=== PATIENT | female | born 1955 | race Caucasian/White ===

== ENCOUNTER → 2017-12-16 11:08 | Outpatient (CLI) | payer MEDICARE, MEDICAID, SELFPAY ==
[2017-12-16 11:16] LABS: Bacteria 0 SEEN /hpf (None Seen); Mucous, Urine 0 SEEN /hpf (<or=2+); Red Blood Cells-Urine 0 SEEN /hpf (0-5); White Blood Cells 0 SEEN /hpf (0-5)
[2017-12-16 14:24] LABS: Color, Urine Yellow (Yellow); Glucose, Dipstick Normal (Normal); Ketone-Dipstick Negative (Negative); Leukocyte Esterase-Dipstick Negative /ul (Negative); Nitrite-Dipstick Negative (Negative); Occult Blood-Urine 10 /ul (Negative); Protein-Dipstick Negative (Negative); Urine Bilirubin Dipstick Negative (Negative); Urine Clarity Clear (Clear); Urine Urobilinogen Normal (Normal)
[2017-12-16 14:27] LABS: Absolute Lymphocyte Count 1.87 X10^3/ul (0.83-4.51); Absolute Neutrophil Count 5.2 X10^3/uL (2.0-7.7); Basophil# 0.05 X10^3/uL; Basophil% 0.6 % (0-1); Eosinophil# 0.36 X10^3/uL; Eosinophils% 4.4 % (0-5); Hematocrit 39.2 % (37-47); Hemoglobin 11.7 g/dl (12.0-15.0); Lymphocyte # 1.87 X10^3/ul (4.0); Mean Corp Hgb Conc 29.8 g/gl (32-36); Mean Corpuscular Hgb 27.3 pg (27.0-32.0); Mean Corpuscular Volume 91.6 fL (81-99); Mean Platelet Vol. 10.6 fl (6.2-12.0); Monocyte# 0.67 X10^3/uL; Monocyte% 8.2 % (0-10); Neutrophil # 5.16 X10^3/uL (2.7-7.7); Neutrophil % 63.6 % (47-70); POSITIVE COUNT NO; POSITIVE DIFFERENTIAL NO; POSITIVE MORPHOLOGY NO; Platelet Count 284 K/mm3 (150-450); RBC Distribution Width CV 15.4 % (11.6-14.6); RBC Distribution Width SD 50.6 fl (35.1-43.9); Red Blood Count 4.28 M/mm3 (4.2-5.4); White Blood Count 8.1 K/mm3 (4.4-11.0)
[2017-12-16 14:34] LABS: Squamous Epithelial Cells - UA 0-5 SEEN /hpf (5-10)
[2017-12-16 15:14] LABS: ALB/GLOB Ratio 0.6 RATIO (0.9-2.4); AST(SGOT) 18 U/L (15-37); Alanine Aminotransfer ALT/SGPT 22 U/L (13-56); Albumin, Serum 3.1 g/dL (3.2-5.0); Alkaline Phosphatase 125 U/L (45-117); Anion Gap 9 (5-15); BUN 16 mg/dL (7-18); BUN/Creat Ratio 14.3 RATIO (10-20); Calcium,Total 8.5 mg/dL (8.5-10.1); Chloride 104 mmol/L (98-107); Cholesterol 185 mg/dL (200); Creatinine, Serum 1.12 mg/dL (0.55-1.02); EST Glomerular Filtration Rate 52 mL/min (>60); Est Glom Filt Rate - Afr Amer 63 mL/min (>60); Globulin 5.4 g/dL (2.2-4.2); Glucose 79 mg/dL (74-106); High Density Lipoprotein 50 mg/dL; Potassium 4.4 mmol/L (3.5-5.1); Protein, Total 8.5 g/dL (6.4-8.2); Sodium Level 140 mmol/L (136-145); T4 Free Direct 1.14 ng/dL (0.76-1.46); Thyroid Stim Hormone (TSH) 2.11 uIU/mL (0.358-3.74); Triglycerides 160 mg/dL; Very Low Density Lipoprotein 32 mg/dL (5-40)
[2017-12-17 09:38] LABS: Vitamin B12 481 pg/mL (211-911)
== END ==
PROVIDERS: Family Provider Family Medicine; PCP Family Medicine; Visit Provider Family Medicine
DX: I10 Essential (primary) hypertension (principal); E53.8 Deficiency of other specified B group vitamins; E66.01 Morbid (severe) obesity due to excess calories; E04.1 Nontoxic single thyroid nodule
CPT/HCPCS: 36415; 80053; 80061; 81001; 82607; 82746; 83036; 84439; 84443; 85025

== ENCOUNTER → 2017-12-21 12:58 | Outpatient (CLI) | payer MEDICARE, MEDICAID, SELFPAY ==
--- NOTE | 2017-12-21 13:03 | US_ITS ---
STUDY: THYROID ULTRASOUND REASON FOR EXAM: Female, 62 years old. Nodule TECHNIQUE: Transverse and longitudinal ultrasound evaluation of the thyroid was performed with real-time and static kilgore-scale imaging. COMPARISON: None. FINDINGS: RIGHT LOBE: The right lobe of the thyroid gland measures 3.8 x 1.6 x 1.8 cm. There is a heterogeneous echotexture. There is an isoechoic mass in the lower pole measuring 11.9 x 7.2 x 10.3 mm. This is well marginated. LEFT LOBE: The left lobe of the thyroid gland measures 4.9 x 1.6 x 1.4 cm. There is a heterogeneous echotexture. There are no demonstrated solid, cystic or complex lesions. ISTHMUS: The isthmus measures 3.0 mm. The regional lymph nodes are unremarkable. US/Thyroid IMPRESSION: There is an isoechoic nodule in the lower pole of the right lobe of the thyroid measuring 12 mm in size. The appearance is not suspicious. A follow-up ultrasound can be obtained in six months. Percutaneous sampling can be performed if the patient is anxious. Electronically Signed: Vianca Sprague MD at 18:15 EDT Tel Direct: [phone], Service support ,
== END ==
PROVIDERS: Family Provider Family Medicine; PCP Family Medicine; Visit Provider Family Medicine
DX: E04.1 Nontoxic single thyroid nodule (principal)
CPT/HCPCS: 76536

== ENCOUNTER → 2017-12-29 07:55 | Outpatient (CLI) | payer MEDICARE, MEDICAID, SELFPAY ==
--- NOTE | 2017-12-29 10:50 | PFTCOMP ---
COMPLETE PULMONARY FUNCTION TEST INTERPRETATION Brief HPI: Patient is a 62 year old female, currently under the care of Dr. Meyer, who presents to [facility] for complete pulmonary function tests secondary to diagnosis of asthma. Respiratory therapist reports good effort and reproducible results. Interpretation: Forced expiration spirometry shows no large airways obstructive ventilatory defect with an FEV1 of 72 % predicted. There is no significant bronchodilator response by ATS criteria. Spirograms are of good quality and plateau normally. The respiratory flow volume loop shows a normal pattern. Lung volumes by body plethysmography show a normal total lung capacity at 5.16 L, 100 % predicted. All other lung volumes are within normal limits. Diffusion capacity by carbon monoxide is decreased at 55 % predicted. The airway resistance is normal. No previous pulmonary function tests were available for review. Impression: Isolated defect in diffusion capacity consistent with a possible pulmonary vascular disorder. Consider echocardiogram if not completed previously.
== END ==
PROVIDERS: Family Provider Family Medicine; PCP Family Medicine; Visit Provider Family Medicine
DX: J45.909 Unspecified asthma, uncomplicated (principal)
CPT/HCPCS: 94060; 94726; 94729

== ENCOUNTER → 2017-12-31 12:07 | Outpatient (CLI) | payer MEDICARE, MEDICAID, SELFPAY ==
[2017-12-31 16:01] LABS: Anion Gap 5 (5-15); BUN 18 mg/dL (7-18); BUN/Creat Ratio 17.8 RATIO (10-20); Calcium,Total 8.5 mg/dL (8.5-10.1); Chloride 103 mmol/L (98-107); Creatinine, Serum 1.01 mg/dL (0.55-1.02); EST Glomerular Filtration Rate 59 mL/min (>60); Est Glom Filt Rate - Afr Amer 71 mL/min (>60); Glucose 84 mg/dL (74-106); Potassium 4.2 mmol/L (3.5-5.1); Sodium Level 139 mmol/L (136-145)
== END ==
PROVIDERS: Family Provider Family Medicine; PCP Family Medicine; Visit Provider Family Medicine
DX: I10 Essential (primary) hypertension (principal)
CPT/HCPCS: 36415; 80048

== ENCOUNTER → 2018-01-08 09:20 | Outpatient (CLI) | payer MEDICARE, MEDICAID, SELFPAY ==
--- NOTE | 2018-01-08 09:20 | ASPS_PTH ---
PATIENT: ALEXIS HASKINS LOC: [facility] U#:[id number] AGE/SX: 69/F ROOM: RE01/08/[address]: Dr. Ankush Fletcher MD : 1955 BED: DIS: SPEC #: [id number] RECD: 01/10/18 07:14 STATUS: KATALINA KIAH #: [id number] ARMANI: 01/08/18 09:[address]: Ankush Fletcher DEPT: CYTOLOGY RECD BY: Kamaljit Summers ENTERED: 01/10/18 09:47 SP TYPE: ASPIRATION OTHR DR: Dr. Hieu Meyer MD Tissues: Thyroid gland, NOS Procedures: Pap Stain (control) Special Stain Group II Cytology Other HEADER OPERATION: Right thyroid FNA PRE-OP DIAGNOSIS: Right thyroid nodule TISSUE SUBMITTED: Right thyroid slides (8) DIAGNOSIS CYTOLOGY Right thyroid nodule, FNA (smears): Consistent with benign follicular nodule. See cytology study and comment. SJ:cecile 01/11/18 COMMENT Correlation with clinical, radiologic findings and appropriate follow up are necessary. CYTOLOGY STUDY Slides are reviewed. The specimen is adequate for evaluation. The specimen consists of benign follicular cells. Significant amount of colloid is not seen. CYTOLOGY GROSS Received are eight smears labeled with the patient's name and designated per the requisition as right thyroid. Submitted for staining. / 01/10/18 TC:5 CPT: 00397
== END ==
PROVIDERS: Family Provider Family Medicine; PCP Family Medicine; Visit Provider Surgery
DX: E04.1 Nontoxic single thyroid nodule (principal)
CPT/HCPCS: 88161; 88313

== ENCOUNTER 2018-01-17 17:00 | Outpatient (RCR) | payer MEDICARE, MEDICAID, SELFPAY ==
--- NOTE | 2017-12-30 11:56 | HP.OTEVAL_ITS ---
Patient's Visit Information ALEXIS HASKINS is a 62 year old F, referred to Occupational Therapy by Hieu Meyer MD,, with a diagnosis of LE lymphedema. Date of Evaluation: 12/30/17 Occupational Therapist: Meghann Hobbs, ROBERTOR/Vitor, CHT - Subjective Subjective: Pt states she was dx 4-5 years ago with lymphedema- pt states her old years ago did have her on bumex and pt states this medication did help control her swelling. Pt states with her new drElizabet she has not been placed back on medication at this time- pt reports the requested her to see someone for lymphedema. Pt states she has not used compression socks in the past because her insurance would not cover the socks. pt states she has tried wraps on her legs but the wraps slide down and she can not wrap her legs, states she relied on her family. Pt states the swelling in her legs does go down at night and in the morning her legs look normal pt states she has had cellulitis x3 hospitalized x2 - Lymphedema (Circumferential Measure) Ankle: R/L 37cm/37cm Lower calf: R/L 60cm/63cm Largest calf: R/L 67cm/68cm Below knee: R/L 70/70cm - Lower Limb Functional Index Lower Extremity Functional Score: 48 - Goals Demonstrate a 20% reduction in edema by d/c: Yes Demonstrate adequate knowledge of self-massage by 2nd week: Yes Demonstrate adequate knowledge skin care/prec by 2nd week: Yes Demonstrate adequate knowledge therapeutic exercises by d/c: Yes Select approp compression garment w/donning/care/wear by d/c: Yes Voice need to replace compression garment every 4-6mo by dc: Yes - Rehabilitation General Assessment: pt demo with dry itchy skin- feels soft no fibrotic tissue noted at this time- pt demo need for ed on the need for compression garments- pt ed. on use of 20-30mmHg, and sizing of compression garments. pt ed. on skin care. pt ed on lymph system and life mtg of this dx. pts is to call insurance to see if they will cover the compression garments- if they will pt will get them- if not pt will have to wait until she can afford the compression garments. pt is to call therapist left me know what she has decided if insurance does not cover the garments. Rehabilitation Potential: Good - Anticipated Interventions Anticipated Interventions: Education re Diagnosis, Education re Life-long lymphedema Management, Education re Skin Care and Precautions, Education re Self Massage Techniques, Education re Correct Donning Tech,Care&Wearing Sched Comp Garments, Home Program - Visit Plan Frequency: Every Other Week Duration: 2 Weeks General Plan: pt will call insurance to see if they will pay for compression socks- if so pt will get a pair to use during the day to assist in mtg of her BLE lymphedema. if insurance does not cover the garments she will have to wait until she has extra funds to pay for them. pt to call therapist for update. Therapist will advise pt to schedule when she has the compression hose or alternative compression device as circaide TEXT: Thank you for the opportunity to evaluate your patient. For Medicare and Medicare HMO plans, please review the plan of care and approve it. It will need to be FAXED BACK to us at [phone] for Medicare purposes. Please let me know if there are questions or concerns regarding this plan of care. Physician Signature: Date:
--- NOTE | 2018-01-27 14:56 | HP.OTDCNRP_ITS ---
HP - Discharge Summary - Patient Information ALEXIS HASKINS was seen in my office for initial evaluation on 12/30/17. The following Plan of Care was established for this patient: Initial Frequency: Every Other Week Initial Duration: 2 Weeks Plan: pt to get compression hose tues- will call if she has trouble with donning /doffing compression socks - Anticipated Interventions Anticipated Interventions: Education re Diagnosis, Education re Life-long lymphedema Management, Education re Skin Care and Precautions, Education re Self Massage Techniques, Education re Correct Donning Tech,Care&Wearing Sched Comp Garments, Home Program This patient was last seen in our office 01/17/18. Pertinent comments regarding their Occupational therapy will appear below: Pt was seen for 2 visits- she recived her compression hose and phoned today reporting she was doing fine and no longer needed services. Pt. D/c at this time At this point I will be discontinuing this patient from occupational therapy. I would be happy to see this patient again in the future if found appropriate by the physician. Thank you! Meghann Hobbs, OTR/L, CHT
== END 2018-01-17 19:00 | disposition home or self-care (01) ==
LOC: OT 17:00
PROVIDERS: Family Provider Family Medicine; PCP Family Medicine; Visit Provider Family Medicine
DX: I89.0 Lymphedema, not elsewhere classified (principal)
CPT/HCPCS: 97110; 97166; 97530

== ENCOUNTER → 2018-01-18 08:07 | Outpatient (CLI) | payer MEDICARE, MEDICAID, SELFPAY ==
--- NOTE | 2018-01-18 08:10 | RDU_ITS ---
Reason For Study: Kidney disease Right Renal Artery Left Renal Artery Right renal artery ostium Left renal artery ostium 133.0/26.4 118.0/23.7 RSV/EDV. PSV/EDV. Right renal artery proximal Left renal artery proximal PSV/EDV 137.0/27.4 PSV/EDV. 133.0/23.7 . Right renal artery mid 140.0/30.1 Left renal artery mid 136.0/34.7 PSV/EDV. PSV/EDV . Right renal artery distal Left renal artery distal 153.0/32.8 143.0/29.2 PSV/EDV. PSV/EDV. Right Renal Parenchyma Left Renal Parenchyma Upper Pole Medula 33.9/8.9 PSV/EDV. Left upper pole medulla 19.9/5.5 Right upper pole medulla EDR .26 . PSV/EDV . Right upper pole medulla R.I. .74 . Left upper pole medulla EDR .28 . Upper Chavo Cortx 22.0/5.2 PSV/EDV. Left upper pole medulla R.I. .72 . Right upper pole cortex EDR .24 . UP Cortex 20.8/6.4 PSV/EDV. Right upper pole cortex R.I. .76 . Left upper pole cortex EDR .31 . Right lower Pole medulla 25.1/5.5 Left upper pole cortex R.I. .69 . PSV/EDV . Left lower Pole medulla 31.2/8.3 Right lower pole medulla EDR .22 . PSV/EDV . Right lower pole medulla R.I. .78 . Left lower pole medulla EDR .27 . Lower Pole Cortex 17.1/6.1 PSV/EDV. Left lower pole medulla R.I. .74 . Right lower pole cortex EDR .36 . Lower Pole Cortx 23.5/7.6 PSV/EDV. Right lower pole cortex R.I. .64 . Left lower pole cortex EDR .32 . Right Renal Hilar Left lower pole cortex R.I. .68 . Right Hilar avg 49.2/12.8 PSV/EDV. Left Renal Hilar Right hilar acceleration time 59 LT Hilar avg 79.4/18.3 PSV/EDV . m/sec. Left hilar acceleration time 51 Right Renal Dimensions m/sec. Right kidney size 9.3 cm . Left Renal Dimensions Right cortical dimension 1.4 cm . Left kidney size 9.6 cm . Left cortical dimension 1.3 cm . Aorta Proximal abdominal aorta 2.1 x 2.0 cm . Distal abdominal aorta 1.6 x 1.7 cm . Proximal abdominal aorta peak systolic velocity is 109.0 cm/sec . Distal abdominal aorta peak systolic velocity is 129.0 cm/sec . Interpretation Summary Dimensions of the intra-abdominal aorta appear normal, without evidence of aneurysmal dilatation. Renal artery velocities are bilaterally normal. Acceleration times are normal bilaterally. There is no evidence of hemodynamically significant renal artery stenosis on either side. Cortical dimensions are bilaterally normal. Kidneys appear normal in size bilaterally. Ordering Physician: Hieu Meyer Referring Physician: Hieu Meyer Performed By: Monica Hernandez RVT
--- NOTE | 2018-01-18 09:09 | US_ITS ---
STUDY: RENAL ULTRASOUND - COMPLETE REASON FOR EXAM: Female, 62 years old. Kidney disease. TECHNIQUE: Ultrasound evaluation of the kidneys was performed with real-time and static lazar-scale imaging. COMPARISON: None. FINDINGS: RIGHT KIDNEY: with mild renal atrophy. The right kidney measures 9.1 x 3.7 x 4.8 cm. There is a normal cortex of the right kidney. The renal cortex measures 1.6 cm. There is no right renal mass or cyst. There are no right renal calculi. There is no right hydronephrosis. DISTAL RIGHT URETER: There is non-visualization of the distal right ureter. There is no demonstrated right ureterovesical junction calculus. There is no demonstrated right ureteral jet. LEFT KIDNEY: Normal location of the left kidney, which is normal in size. The left kidney measures 10.6 x 4.5 x 5.2 cm. There is a normal cortex of the left kidney. The renal cortex measures 1.7 cm. There is no left renal mass or cyst. There are no left renal calculi. There is no left hydronephrosis. DISTAL LEFT URETER: There is non-visualization of the distal left ureter. There is no demonstrated left ureterovesical junction calculus. There is no demonstrated left ureteral jet. AORTA: Not evaluated. Not visualized. I.V.C.: Not visualized. BLADDER: Not visualized. US/Kidney and Bladder IMPRESSION: Renal size asymmetry as above. Most likely secondary to mild right renal atrophy. No mass or cyst. No hydronephrosis. No calculi identified. Electronically Signed: Fredi Hutson MD at 11:00 EDT , Service support ,
== END ==
PROVIDERS: Family Provider Family Medicine; PCP Family Medicine; Visit Provider Family Medicine
DX: I10 Essential (primary) hypertension (principal); N28.9 Disorder of kidney and ureter, unspecified
CPT/HCPCS: 76770; 93975

== ENCOUNTER → 2018-02-03 10:04 | Outpatient (CLI) | payer MEDICARE, MEDICAID, SELFPAY ==
[2018-02-03 12:50] LABS: Anion Gap 10 (5-15); BUN 19 mg/dL (7-18); Calcium,Total 8.8 mg/dL (8.5-10.1); Chloride 105 mmol/L (98-107); Creatinine, Serum 1.19 mg/dL (0.55-1.02); EST Glomerular Filtration Rate 49 mL/min (>60); Est Glom Filt Rate - Afr Amer 59 mL/min (>60); Glucose 90 mg/dL (74-106); Potassium 4.1 mmol/L (3.5-5.1); Sodium Level 143 mmol/L (136-145)
== END ==
PROVIDERS: Family Provider Family Medicine; PCP Family Medicine; Visit Provider Family Medicine
DX: N28.9 Disorder of kidney and ureter, unspecified (principal)
CPT/HCPCS: 36415; 80048

== ENCOUNTER → 2018-04-15 11:59 | Outpatient (CLI) | payer MEDICARE, MEDICAID, SELFPAY ==
[2018-04-15 12:07] LABS: Red Blood Cells-Urine 0 SEEN /hpf (0-5)
[2018-04-15 14:09] LABS: Absolute Neutrophil Count 4.5 X10^3/uL (2.0-7.7); Basophil# 0.04 X10^3/uL; Basophil% 0.6 % (0-1); Eosinophil# 0.28 X10^3/uL; Eosinophils% 3.9 % (0-5); Hematocrit 39.2 % (37-47); Hemoglobin 11.7 g/dl (12.0-15.0); Lymphocyte % 25.2 % (19-41); Mean Corp Hgb Conc 29.8 g/gl (32-36); Mean Corpuscular Hgb 27.1 pg (27.0-32.0); Mean Corpuscular Volume 90.7 fL (81-99); Mean Platelet Vol. 10.4 fl (6.2-12.0); Monocyte# 0.48 X10^3/uL; Monocyte% 6.7 % (0-10); Neutrophil # 4.52 X10^3/uL (2.7-7.7); Neutrophil % 63.5 % (47-70); Platelet Count 239 K/mm3 (150-450); RBC Distribution Width CV 14.7 % (11.6-14.6); Red Blood Count 4.32 M/mm3 (4.2-5.4); White Blood Count 7.1 K/mm3 (4.4-11.0)
[2018-04-15 14:10] LABS: POSITIVE COUNT NO; POSITIVE DIFFERENTIAL NO; POSITIVE MORPHOLOGY NO
[2018-04-15 14:14] LABS: Color, Urine Yellow (Yellow); Glucose, Dipstick Normal (Normal); Ketone-Dipstick Negative (Negative); Leukocyte Esterase-Dipstick 25 /ul (Negative); Nitrite-Dipstick Negative (Negative); Occult Blood-Urine Negative /ul (Negative); Protein-Dipstick Negative (Negative); Urine Bilirubin Dipstick Negative (Negative); Urine Clarity Sl. Cloudy (Clear); Urine Urobilinogen 1 mg/dl (Normal)
[2018-04-15 14:22] LABS: ALB/GLOB Ratio 0.7 RATIO (0.9-2.4); AST(SGOT) 16 U/L (15-37); Alanine Aminotransfer ALT/SGPT 16 U/L (13-56); Albumin, Serum 3.2 g/dL (3.2-5.0); Alkaline Phosphatase 102 U/L (45-117); Anion Gap 5 (5-15); BUN 13 mg/dL (7-18); BUN/Creat Ratio 12.3 RATIO (10-20); Calcium,Total 8.6 mg/dL (8.5-10.1); Chloride 105 mmol/L (98-107); Creatinine, Serum 1.06 mg/dL (0.55-1.02); EST Glomerular Filtration Rate 55 mL/min (>60); Est Glom Filt Rate - Afr Amer 67 mL/min (>60); Globulin 4.8 g/dL (2.2-4.2); Glucose 81 mg/dL (74-106); Potassium 4.1 mmol/L (3.5-5.1); Sodium Level 139 mmol/L (136-145)
[2018-04-15 14:33] LABS: Bacteria 1+ /hpf (None Seen); Squamous Epithelial Cells - UA 5-10 SEEN /hpf (5-10); White Blood Cells 0-5 SEEN /hpf (0-5)
[2018-04-15 14:34] LABS: Mucous, Urine RARE /hpf (<or=2+)
== END ==
PROVIDERS: Family Provider Family Medicine; PCP Family Medicine; Visit Provider Family Medicine
DX: I10 Essential (primary) hypertension (principal); E66.01 Morbid (severe) obesity due to excess calories
CPT/HCPCS: 36415; 80053; 81001; 85025

== ENCOUNTER 2018-04-16 18:16 | Emergency (ER) | payer MEDICARE, MEDICAID, SELFPAY ==
[2018-04-16 18:16] VITALS: BP 148/80; PULSE 65; RESP 16; TEMP 36.4; O2SAT 95; BMI 57.7
--- NOTE | 2018-04-16 18:32 | EKG12_ITS ---
Test Reason : PALPITATIONS Blood Pressure : / mmHG Vent. Rate : 065 BPM Atrial Rate : 065 BPM P-R Int : 154 ms QRS Dur : 096 ms QT Int : 444 ms P-R-T Axes : 005 009 032 degrees QTc Int : 461 ms Normal sinus rhythm Normal ECG Confirmed by LUCA BAUMAN, ASHVIN ([id number]), dictionary editor KALYANI MORROW ([id number]) on 04/19/2018 1:00:18 PM Referred By: Jimi Red Confirmed By:ASHVIN SEGOVIA MD
--- NOTE | 2018-04-16 18:32 | ED.VISSUMM ---
- ER Visit Summary Date of Service: 04/16/18 Chief Complaint: Palpitations, weakness, nausea History of Present Illness: The patient is a 62 F who presents with the above symptoms. Started today. She started Cymbalta today. She has never taken it before. She took it about 1:30 PM. She started having palpitations, weakness and nausea. She just does not feel right. She has taken Zoloft in the past but it made her tired so she was switched to Celexa which was hard with her kidneys so she was switched to BuSpar but she states that did not work. Her doctor then tried the Cymbalta see if it would help with her symptoms. She just feels very tired. Physical Examination: Vital signs reviewed. HEENT exam unremarkable. Heart is regular rate and rhythm without murmurs. Lungs are clear to auscultation. Abdomen is soft and nontender. Extremities reveal no edema. Skin exam normal. Neurologic exam normal. Test Results: EKG is sinus rhythm with no ST changes. Blood glucose is 118 Emergency Department Course and Treatment: The patient is likely having a reaction to medication. I do not feel any further testing is necessary. She will stop using the Cymbalta and will call her doctor on Wednesday for follow-up appointment Treatment Plan: [] Disposition: Discharge Impression: Medication reaction This note was generated with [employer] dictation software. It may contain incorrect words, spelling, and punctuation that were not noted in review of the chart prior to signing ED Disposition - Plan for ED Patient: Disposition: Home or Assisted Living Chief Complaint: General Illness Instructions: ED Drug React Adverse Other Referrals: Hieu Meyer MD [Primary Care Provider] -
[2018-04-16 18:35] VITALS: BP 136/75; PULSE 66; RESP 16; O2SAT 98
[2018-04-16 18:40] LABS: Bedside Glucose 118 mg/dL (70-110)
== END 2018-04-16 18:42 | disposition home or self-care (01) ==
PROVIDERS: Emergency Provider Emergency Medicine; Family Provider Family Medicine; PCP Family Medicine
DX: R00.2 Palpitations (principal); R11.0 Nausea; R53.1 Weakness; T43.215A Adverse effect of selective serotonin and norepinephrine reuptake inhibitors, initial encounter; E66.9 Obesity, unspecified; Y92.009 Unspecified place in unspecified non-institutional (private) residence as the place of occurrence of the external cause
CPT/HCPCS: 82962; 93005; 99282

== ENCOUNTER → 2018-04-26 06:54 | Outpatient (CLI) | payer MEDICARE, MEDICAID, SELFPAY ==
--- NOTE | 2018-04-27 13:18 | BRONCHALL ---
Bronchoprovocation Challenge - Bronchoprovocation Challenge Bronchoprovocation Challenge: INTRODUCTION: The patient is a 62-year-old female that presents for a methacholine challenge secondary to a diagnosis of asthma. The respiratory therapist reported good patient effort and reproducible results. INTERPRETATION: Initial spirometry did not show any large airways obstructive ventilatory defect and preserved airflow throughout. The patient was then given progressively increasing doses of methacholine in a standardized fashion. At dose level 4, the patient did have a 20% drop in FEV1, indicating a positive test. The patient's PD 20 FEV1 is a dose of 0.179. Postchallenge bronchodilator recovery was noted. IMPRESSION: Positive methacholine challenge, indicating the presence of mild bronchial hyperresponsiveness.
== END ==
PROVIDERS: Family Provider Family Medicine; PCP Family Medicine; Visit Provider Family Medicine
DX: J45.909 Unspecified asthma, uncomplicated (principal)
CPT/HCPCS: 94060; 94070; 95070; J3490; J7674

== ENCOUNTER → 2018-07-28 09:49 | Outpatient (CLI) | payer MEDICARE, MEDICAID, SELFPAY ==
--- NOTE | 2018-07-28 09:53 | RAD_ITS ---
STUDY: X-RAY - RIGHT KNEE REASON FOR EXAM: Female, 62 years old. Knee pain. TECHNIQUE: 2 view(s) of the knee. COMPARISON: None. FINDINGS: Extremely limited examination for the patient's size. No acute fracture or dislocation is seen. Mild degenerative narrowing of the medial tibiofemoral compartment. Mild patellofemoral osteoarthritis. No definite effusion. RAD/Knee 3 Views IMPRESSION: Extremely limited because of patient's size. However, no definite acute abnormality. Mild degenerative changes. Electronically Signed: Dontae Napier MD at 10:54 EDT , Service support ,
--- NOTE | 2018-07-28 09:53 | RAD_ITS ---
STUDY: X-RAY - LEFT KNEE REASON FOR EXAM: Female, 62 years old. Knee pain. TECHNIQUE: 2 view(s) of the knee. COMPARISON: None. FINDINGS: Extremely limited examination for the patient's size. No acute fracture or dislocation is seen. Moderate to severe degenerative narrowing of the medial tibiofemoral compartment. Moderate patellofemoral osteoarthritis. No definite effusion. RAD/Knee 3 Views IMPRESSION: Extremely limited because of patient's size. However, no definite acute abnormality. Moderate to severe degenerative changes. Electronically Signed: Dontae Napier MD at 10:55 EDT , Service support ,
== END ==
PROVIDERS: Family Provider Family Medicine; PCP Family Medicine; Referring Provider Family Medicine; Visit Provider Family Medicine
DX: M25.561 Pain in right knee (principal); M25.562 Pain in left knee
CPT/HCPCS: 73562

== ENCOUNTER → 2018-08-24 15:05 | Outpatient (CLI) | payer MEDICARE, MEDICAID, SELFPAY ==
[2018-08-24 14:21] VITALS: BMI 58.8
[2018-08-24 15:33] LABS: Absolute Lymphocyte Count 2.05 X10^3/ul (0.83-4.51); Absolute Neutrophil Count 7.7 X10^3/uL (2.0-7.7); Basophil# 0.04 X10^3/uL; Basophil% 0.4 % (0-1); Eosinophil# 0.19 X10^3/uL; Eosinophils% 1.8 % (0-5); Hematocrit 40.5 % (37-47); Hemoglobin 12.3 g/dl (12.0-15.0); Lymphocyte # 2.05 X10^3/ul (4.0); Lymphocyte % 19.1 % (19-41); Mean Corp Hgb Conc 30.4 g/gl (32-36); Mean Corpuscular Volume 92.3 fL (81-99); Mean Platelet Vol. 10.1 fl (6.2-12.0); Monocyte# 0.76 X10^3/uL; Monocyte% 7.1 % (0-10); Neutrophil # 7.67 X10^3/uL (2.7-7.7); Neutrophil % 71.4 % (47-70); Platelet Count 253 K/mm3 (150-450); RBC Distribution Width CV 14.8 % (11.6-14.6); RBC Distribution Width SD 49.8 fl (35.1-43.9); Red Blood Count 4.39 M/mm3 (4.2-5.4); White Blood Count 10.7 K/mm3 (4.4-11.0)
[2018-08-24 15:49] LABS: POSITIVE COUNT NO; POSITIVE DIFFERENTIAL NO; POSITIVE MORPHOLOGY NO
[2018-08-24 16:01] LABS: Thyroid Stim Hormone (TSH) 1.61 uIU/mL (0.358-3.74)
--- OUTSIDE RECORDS SUMMARY | 2018-10-20 01:33 | XMS RPT_ITS ---
:1955 Author Organization OHIP Support Name Relationship Address Phone SUZIEGRISELDA PENNINGTON Unavailable Unavailable + D Unavailable Unavailable Unavailable PRAKASH HASKINS Unavailable Unavailable + SUZIEGRISELDA PENNINGTON Unavailable Unavailable + D Unavailable Unavailable Unavailable YURICK, SUZZIE Unavailable Unavailable + BERSCH, GRISELDA Unavailable [address] + [place] [address] D Unavailable Unavailable Unavailable YURICK, SUZZIE Unavailable . + [place] [address] BERSCH, GRISELDA Unavailable [address] + [place] [address] D Unavailable Unavailable Unavailable YURICK, SUZZIE Unavailable Unavailable + [place] [address] BERSCH, GRISELDA Unavailable [address] + [place] [address] D Unavailable Unavailable Unavailable YURICK, SUZZIE Unavailable Unavailable + [place] [address] BERSCH, GRISELDA Unavailable [address] + [place] [address] D Unavailable Unavailable Unavailable YURICK, SUZZIE Unavailable Unavailable + [place] [address] BERSCH, GRISELDA Unavailable [address] + [place] [address] D Unavailable Unavailable Unavailable BERSCH, GRISELDA Unavailable [address] + [place] [address] D Unavailable Unavailable Unavailable BERSCH, GRISELDA Unavailable [address] + [place] [address] D Unavailable Unavailable Unavailable BERSCH, GRISELDA Unavailable [address] + [place] [address] D Unavailable Unavailable Unavailable BERSCH, GRISELDA [place] [address] D Unavailable Unavailable Unavailable BERSCH, GRISELDA Unavailable [address] + [place] [address] D Unavailable Unavailable Unavailable BERSCH, GRISELDA [place] [address] D Unavailable Unavailable Unavailable BERSCH, GRISELDA Unavailable [address] + [place] [address] D Unavailable Unavailable Unavailable BERSCH, GRISELDA Unavailable [address] + [place] [address] D Unavailable Unavailable Unavailable BERSCH, GRISELDA Unavailable [phone] [place] [address] D Unavailable Unavailable Unavailable BERSCH, GRISELDA [place] [address] D Unavailable Unavailable Unavailable BERSCH, GRISELDA [place] [address] D Unavailable Unavailable Unavailable BERSCH, GRISELDA Unavailable [phone] [place] [address] D Unavailable Unavailable Unavailable DAPHNE DERAS Unavailable Unavailable + [place] [address] Care Team Providers Name Role Phone Hieu Meyer Attending Unavailable Hieu Meyer Primary Care Unavailable Hieu Meyer Attending Unavailable Hieu Meyer Referring Unavailable Hieu Meyer Primary Care Unavailable Hieu Meyer Attending Unavailable Hieu Meyer Referring Unavailable Hieu Meyer Primary Care Unavailable Hieu Meyer Attending Unavailable Hieu Meyer Referring Unavailable Hieu Meyer Primary Care Unavailable Ankush Fletcher Attending Unavailable Hieu Meyer Referring Unavailable SchHieu rinaldi Primary Care Unavailable Hieu Meyer Attending Unavailable Hieu Meyer Primary Care Unavailable Ankush Fletcher Attending Unavailable Hieu Meyer Referring Unavailable Hieu Meyer Primary Care Unavailable Ankush Fletcher Attending Unavailable Ankush Fletcher Referring Unavailable SchHieu rinaldi Primary Care Unavailable Angel Gonzales Attending Unavailable Hieu Meyer Referring Unavailable Hieu Meyer Attending Unavailable Hieu Meyer Referring Unavailable SchHieu rinaldi Primary Care Unavailable Schinner, Hieu E Attending Unavailable Schinner, Hieu E Primary Care Unavailable Schinner, Hieu E Attending Unavailable Schinner, Hieu E Primary Care Unavailable Schinner, Hieu E Primary Care Unavailable FaizaneJimi Attending Unavailable Lowe, Jimi Referring Unavailable Schinner, Hieu E Attending Unavailable Schinner, Hieu E Primary Care Unavailable Schinner, Hieu E Referring Unavailable Lukasz Flores D.O. Attending Unavailable Schinner, Hieu Schaefer Referring Unavailable Schinner, Hieu E Attending Unavailable Schinner, Hieu E Referring Unavailable Schinner, Hieu E Primary Care Unavailable Greenfield, Demi Attending Unavailable Schinner, Hieu E Referring Unavailable Greenfield, Demi Attending Unavailable Greenfield, Demi Referring Unavailable Schinner, Hieu E Primary Care Unavailable Erendira, Demi Attending Unavailable Greenfield, Demi Referring Unavailable Schinner, Hieu E Primary Care Unavailable PROBLEMS PROBLEMS DATE TYPE CONDITION / CODE ATTENDING STATUS SOURCE 08/24/2018 Unknown E04.2 - Nontoxic ErendiraDemi roth Active [facility] multinodular goiter Community / E04.2(ICD-10) Hospital Repository 08/24/2018 Unknown N95.0 - GreenfieldDemi roth Active [place] Postmenopausal [facility] bleeding / Hospital N95.0(ICD-10) Repository 07/28/2018 Unknown M25.561 - Pain in Hieu Meyer Active [place] right knee / E Community M25.561(ICD-10) Hospital Repository 07/28/2018 Unknown M25.562 - Pain in Hieu Meyer Active [place] left knee / E [facility] M25.562(ICD-10) Hospital Repository 05/05/2018 Unknown J45.909 - Rosie Haas [facility] Unspecified asthma, D.O. 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, E Community unspecified / Hospital N28.9(ICD-10) Repository 05/07/2018 Unknown I10 - Essential Hieu Meyer Active [facility] (primary) E [facility] hypertension / Hospital I10(ICD-10) Repository PROCEDURES PROCEDURES No Procedure Records FoundRESULTS RESULTS TRANSVAGINAL Observed: 09/02/2018 Status: F Source: [place] NON- [facility] PM [facility] [place] [facility] Imaging Services [address] [place] [address] Transvaginal Non- MR#: [id number] Acct: [id number] Name: ALEXIS HASKINS Rep #: [id number] : 1955 F 62 From: Anatoliy Tavera MD PCP: Hieu Meyer MD Status: REG CLI Study: Transvaginal Non- Date of Exam: 09/02/18 Exam# [id number] Ordering Dr: Demi Krishna FORENSIC SCIENCE EXAMINER-Shell STUDY: ULTRASOUND OF THE FEMALE PELVIS - COMPLETE REASON FOR EXAM: Female, 62 years old. Postmenopausal bleeding. TECHNIQUE: Transabdominal and Transvaginal. The urinary bladder was nearly empty on initial scanning and in view of the patient's body habitus, endovaginal imaging was also utilized. TECHNICAL QUALITY: Adequate. COMPARISON: None. FINDINGS: The uterus is anteverted and is in a midline position. The uterus measures 7.4 x 3.9 x 4.5 cm. There were a few small Nabothian cysts of the cervix. The endometrium measures 10.9 mm in thickness, and is hyperechoic. There is no demonstrated endometrial mass. There is no demonstrated myometrial mass. I.U.D. - The patient does not have an I.U.D. The right ovary is non-visualized. There is no visualized right adnexal mass or complex lesion. There is normal arterial and normal venous vascularity. The left ovary is non-visualized. There is no visualized left adnexal mass or complex lesion. There is normal arterial and normal venous vascularity. There is no fluid in the cul-de-sac. The pre void volume of the bladder was 80 ml. Polycystic ovary disease: No. US/Transvaginal Non- IMPRESSION: 1. Thickened endometrium, which is atypical in this postmenopausal patient unless there is history of hormonal supplementation. Clinical correlation needed. 2. The ovaries are nonvisualized. Electronically Signed: Hadley Tavera MD at 14:58 EST , Service support , CC: ALEJA Krishna; Hieu Meyer MD Survey Operations Director: Signed PELVIC (NON ) Observed: 09/02/2018 Status: F Source: [place] 12:22 PM [facility] REPOSITORY [facility] Imaging Services [address] [place] [address] Pelvic (Non ) MR#: [id number] Acct: [id number] Name: ALEXIS HASKINS Rep #: [id number] : 1955 F 62 From: Anatoliy Tavera MD PCP: Hieu Meyer MD Status: REG CLI Study: Pelvic (Non ) Date of Exam: 09/02/18 Exam# [id number] Ordering Dr: Demi Krishna FORENSIC SCIENCE EXAMINER-C STUDY: ULTRASOUND OF THE FEMALE PELVIS - COMPLETE REASON FOR EXAM: Female, 62 years old. Postmenopausal bleeding. TECHNIQUE: Transabdominal and Transvaginal. The urinary bladder was nearly empty on initial scanning and in view of the patient's body habitus, endovaginal imaging was also utilized. TECHNICAL QUALITY: Adequate. COMPARISON: None. FINDINGS: The uterus is anteverted and is in a midline position. The uterus measures 7.4 x 3.9 x 4.5 cm. There were a few small Nabothian cysts of the cervix. The endometrium measures 10.9 mm in thickness, and is hyperechoic. There is no demonstrated endometrial mass. There is no demonstrated myometrial mass. I.U.D. - The patient does not have an I.U.D. The right ovary is non-visualized. There is no visualized right adnexal mass or complex lesion. There is normal arterial and normal venous vascularity. The left ovary is non-visualized. There is no visualized left adnexal mass or complex lesion. There is normal arterial and normal venous vascularity. There is no fluid in the cul-de-sac. The pre void volume of the bladder was 80 ml. Polycystic ovary disease: No. US/Pelvic (Non ) IMPRESSION: 1. Thickened endometrium, which is atypical in this postmenopausal patient unless there is history of hormonal supplementation. Clinical correlation needed. 2. The ovaries are nonvisualized. Electronically Signed: Hadley Tavera MD at 14:58 EST , Service support , CC: ALEJA Krishna; Hieu Meyer MD Survey Operations Director: Signed NIGHT TIME NANNY OFFICE VISIT Observed: 08/24/2018 Status: F Source: [place] REPORT 3:31 PM [facility] [address] [place] [address] OFFICE VISIT Date of Service: 08/24/18 MR#: [id number] Acct: [id number] Name: ALEXIS HASKINS Rep #: [id number] : 1955 Provider: ALEJA Krishna Age/Sex: 62/F Location: [facility] Status: Signed Intake Vital Signs08/24/18 Height 5 ft 6 in 08/24/18 Weight: 364 lb 4 oz 08/24/18 Body Mass Index (BMI) 58.8 08/24/18 Blood Pressure 124/82 H Intake Visit Reasons: PMB, referral from Dr. Hieu Meyer, No [facility] Alternative Medicine Practitioner Required: No Is patient in pain?: No Allergies doxycycline Allergy (Verified 08/24/18 14:24) Rash duloxetine [From Cymbalta] Adverse Reaction (Severe, Verified 08/24/18 14:24) rapid HR, light headed, weak Medications Aspirin 81 mg PO DAILY 01/12/17 [History Confirmed 08/24/18] amlodipine 10 mg tablet 10 mg PO QDAY 12/29/17 [History Confirmed 08/24/18] fluoxetine 20 mg capsule 20 mg PO DAILY 11/28/18 [History Confirmed 08/24/18] medroxyprogesterone 10 mg tablet 10 mg PO .COMPLEX #45 tab 08/24/18 [Rx Confirmed 08/24/18] Is last menstrual period known: No Post menopausal: No Patient : No : No [facility] Medical History Multiple thyroid nodules (Acute) Community acquired bacterial pneumonia (Acute) Hypoxia (Acute) Cellulitis (Acute) Morbid obesity with BMI of 50.0-59.9, adult (Chronic) Hypertension (Chronic) Anxiety (Chronic) Surgical History H/O carpal tunnel repair (Acute) Status post laparoscopic cholecystectomy (Acute) Family History Mother Asthma Diabetes Hypertension Sister Thyroid disorder Social History Smoking Status: Former smoker alcohol intake: never HPI PMB, referral from Dr. Hieu Meyer, No hyst: Details: ALEXIS HASKINS is a 62 year old who presents for psotmenopausal bleeding X 1 week. States like normal menses. Was referred per PCP Dr. Oscar. Denies pain. Denies sexual activity. Brought to office by grain sacker at [facility]. Pregancy History 2 Elective abortions Hx Para 2 Spontaneous abortions Past Pregnancies Del. DatName VT/WeeksOutcome Route [facility] LocaProviderFOB e ht en tn Unknown Patt 1978 Unknown Prakash 1981 ROS Const Constitutional: Reports as per HPI Exam Const General: cooperative Nutritional Appearance: obese morbidy Orientation: oriented x3 Speculum Exam - Vagina: normal appearance of the vagina (moderate blood in vault. ) Speculum Exam - Cervix: normal appearance of the cervix Bimanual Exam- Vagina AND Uterus: uterus enlarged Bimanual Exam- Adnexa, other: normal adnexae Other: Attempt endometrial biopsy but unable to pass small dilator. Patient unable to tolerate procedure. Procedure deferred Office Procedures Endometrial Biopsy Endometrial Biopsy Details: Cervix prepped with betadine and pipelle inserted into uterus without complication. Specimen obtained and sent to lab for analysis. All instruments removed from vagina without complications. Excellent hemostasis noted. Assessment AND Plan Problems 1. Postmenopausal bleeding N95.0 2. Morbid obesity with BMI of 50.0-59.9, adult E66.01; Z68.43 Plan TSH CBC ultrasound Provera Rx and continue until appt with DR. Kiran Will schedule for hysteroscopy D AND C. Orders Orders: Medications New: Coding Level of Care Code Off vis,new,level 3 Diagnoses Postmenopausal bleeding N95.0 Morbid obesity with BMI of 50.0-59.9, adult E66.01; Z68.43 08/24/18 1531 <Electronically signed by Demi ALATORREC> Date Demi Krishna FORENSIC SCIENCE EXAMINER-C Cosigner Signature: Date (if applicable) CC: CBC W/DIFF, AUTOMATED Collected: 08/24/2018 Status: F Source: [place] 3:12 PM [facility] REPOSITORY TYPE CODE TESTS RESULT OUT OF RANGE REFERENCE UNITS LAB L100.1000 4.4-11.0 K/mm3 Normal WBC 10.7 LAB L100.1200 4.2-5.4 M/mm3 Normal RBC 4.39 LAB L100.1300 12.0-15.0 g/dl Normal HGB 12.3 LAB L100.1400 37-47 % Normal HCT 40.5 LAB L100.1500 81-99 fL Normal MCV 92.3 LAB L100.1600 27.0-32.0 pg Normal MCH 28.0 LAB L100.1700 32-36 g/gl Low MCHC 30.4 LAB L100.1810 11.6-14.6 % High RDW CV 14.8 LAB L100.1820 35.1-43.9 fl High RDW SD 49.8 LAB L100.1900 150-450 K/mm3 Normal PLT 253 LAB L100.2000 6.2-12.0 fl Normal MPV 10.1 LAB L100.2100 47-70 % High NEUT% 71.4 LAB L100.2200 19-41 % Normal LY% 19.1 LAB L100.2300 0-10 % Normal MONO% 7.1 LAB L100.2400 0-5 % Normal EO% 1.8 LAB L100.2500 0-1 % Normal BASO% 0.4 LAB L100.2550 0.0-0.9 % Normal IM GRAN % 0.200 Result Comment: IG% - Immature Granulocytes (promyelocytes, myelocytes and metamyelocytes) > 1% indicates that a LEFT SHIFT is Present. LAB L100.2620 2.0-7.7 X10 3/uL Normal Absolute Neut 7.7 LAB L100.2720 0.83-4.51 X10 3/ul Normal Absolute Lymph 2.05 Performed By: #### L100.0100 #### [facility] [address] [place], [address] THYROID STIM HORMONE Collected: 08/24/2018 Status: F Source: [place] (TSH) 3:12 PM [facility] REPOSITORY TYPE CODE TESTS RESULT OUT OF RANGE REFERENCE UNITS LAB L501.9520 0.358-3.74 uIU/mL Normal TSH 1.61 Performed By: #### L501.9520 #### [facility] [address] [place], [address] KNEE 3 VIEWS Observed: 07/28/2018 Status: F Source: [place] 9:54 AM [facility] REPOSITORY [facility] Imaging Services [address] [place] [address] Knee 3 Views MR#: [id number] Acct: [id number] Name: ALEXIS HASKINS Rep #: [id number] : 1955 F 62 From: Dontae Napier MD PCP: Hieu Meyer MD Status: REG CLI Study: Knee 3 Views Date of Exam: 07/28/18 Exam# [id number] Ordering Dr: Hieu Meyer MD STUDY: X-RAY - RIGHT KNEE REASON FOR EXAM: Female, 62 years old. Knee pain. TECHNIQUE: 2 view(s) of the knee. COMPARISON: None. FINDINGS: Extremely limited examination for the patient's size. No acute fracture or dislocation is seen. Mild degenerative narrowing of the medial tibiofemoral compartment. Mild patellofemoral osteoarthritis. No definite effusion. RAD/Knee 3 Views IMPRESSION: Extremely limited because of patient's size. However, no definite acute abnormality. Mild degenerative changes. Electronically Signed: Dontae Napier MD at 10:54 EDT , Service support , CC: Hieu Meyer MD Survey Operations Director: Signed KNEE 3 VIEWS Observed: 07/28/2018 Status: F Source: [place] 9:54 AM [facility] REPOSITORY [facility] Imaging Services [address] [place] [address] Knee 3 Views MR#: [id number] Acct: [id number] Name: ALEXIS HASKINS Rep #: [id number] : 1955 F 62 From: Dontae Napier MD PCP: Hieu Meyer MD Status: REG CLI Study: Knee 3 Views Date of Exam: 07/28/18 Exam# [id number] Ordering Dr: Hieu Meyer MD STUDY: X-RAY - LEFT KNEE REASON FOR EXAM: Female, 62 years old. Knee pain. TECHNIQUE: 2 view(s) of the knee. COMPARISON: None. FINDINGS: Extremely limited examination for the patient's size. No acute fracture or dislocation is seen. Moderate to severe degenerative narrowing of the medial tibiofemoral compartment. Moderate patellofemoral osteoarthritis. No definite effusion. RAD/Knee 3 Views IMPRESSION: Extremely limited because of patient's size. However, no definite acute abnormality. Moderate to severe degenerative changes. Electronically Signed: Dontae Napier MD at 10:55 EDT , Service support , CC: Hieu Meyer MD Survey Operations Director: Signed BRONCHOPROVOCATION CHALLENGE Observed: 04/27/2018 Status: F Source: [place] 1:27 PM [facility] REPOSITORY [facility] Pulmonary Services/Neurology [address] [place] [address] MR#: [id number] Acct: [id number] Name: ALEXIS HASKINS Rep #: [id number] : 1955 62 From: Lukasz Flores DO Referring Dr: Hieu Meyer MD Status: REG CLI Ordering Dr: Date: Location: [facility] Sex: F C Bronchoprovocation Challenge - Bronchoprovocation Challenge Bronchoprovocation Challenge: INTRODUCTION: The patient is a 62-year-old female that presents for a methacholine challenge secondary to a diagnosis of asthma. The respiratory therapist reported good patient effort and reproducible results. INTERPRETATION: Initial spirometry did not show any large airways obstructive ventilatory defect and preserved airflow throughout. The patient was then given progressively increasing doses of methacholine in a standardized fashion. At dose level 4, the patient did have a 20% drop in FEV1, indicating a positive test. The patient's PD 20 FEV1 is a dose of 0.179. Postchallenge bronchodilator recovery was noted. IMPRESSION: Positive methacholine challenge, indicating the presence of mild bronchial hyperresponsiveness. 04/27/18 1327 <Electronically signed by Lukasz Flores DO> Date Lukasz Flores DO CC: Date Dictated: 04/27/18 1318 Date Transcribed: 04/27/18 1318 Survey Operations Director: DB Signed 12 LEAD ELECTROCARDIOGRAM Observed: 04/19/2018 Status: F Source: [place] 1:00 PM [facility] REPOSITORY [facility] Cardiovascular Services [address] [place] [address] 12 Lead EKG 04/16/18 1826 MR#: [id number] Acct: [id number] Name: ALEXIS HASKINS Rep #: [id number] : 1955 62 From: Bryan Segovia MD Attending Dr: Status: DEP ER Ordering Dr: Jimi Red MD Date: 04/16/18 Location: ED Sex: F C Admitted: Test Reason : PALPITATIONS Blood Pressure : / mmHG Vent. Rate : 065 BPM Atrial Rate : 065 BPM P-R Int : 154 ms QRS Dur : 096 ms QT Int : 444 ms P-R-T Axes : 005 009 032 degrees QTc Int : 461 ms Normal sinus rhythm Normal ECG Confirmed by LUCA BAUMAN, BRYAN ([id number]), film editor supervisor KALYANI MORROW ([id number]) on 04/19/2018 1:00:18 PM Referred By: Jimi Red Confirmed By:BRYAN SEGOVIA MD 04/19/18 1300 Date Bryan Segovia MD CC: Hieu Meyer MD; Jimi Red MD Signed EMERGENCY DEPARTMENT Observed: 04/16/2018 Status: F Source: [place] SUMMARY 6:46 PM [facility] REPOSITORY [facility] Medical Records Department [address] [place] [id number] Emergency Department Summary 04/16/18 1832 MR#: [id number] Acct: [id number] Name: ALEXIS HASKINS Rep #: [id number] : 1955 62 From: Jimi Red MD PCP: Hieu Meyer MD Status: DEP ER - ER Visit Summary Date of Service: 04/16/18 Chief Complaint: Palpitations, weakness, nausea History of Present Illness: The patient is a 62 F who presents with the above symptoms. Started today. She started Cymbalta today. She has never taken it before. She took it about 1:30 PM. She started having palpitations, weakness and nausea. She just does not feel right. She has taken Zoloft in the past but it made her tired so she was switched to Celexa which was hard with her kidneys so she was switched to BuSpar but she states that did not work. Her doctor then tried the Cymbalta see if it would help with her symptoms. She just feels very tired. Physical Examination: Vital signs reviewed. HEENT exam unremarkable. Heart is regular rate and rhythm without murmurs. Lungs are clear to auscultation. Abdomen is soft and nontender. Extremities reveal no edema. Skin exam normal. Neurologic exam normal. Test Results: EKG is sinus rhythm with no ST changes. Blood glucose is 118 Emergency Department Course and Treatment: The patient is likely having a reaction to medication. I do not feel any further testing is necessary. She will stop using the Cymbalta and will call her doctor on Wednesday for follow-up appointment Treatment Plan: [] Disposition: Discharge Impression: Medication reaction This note was generated with [employer] Infrastructure[employer] software. It may contain incorrect words, spelling, and punctuation that were not noted in review of the chart prior to signing ED Disposition - Plan for ED Patient: Disposition: Home or Assisted Living Chief Complaint: General Illness Instructions: ED Drug React Adverse Other Referrals: Hieu Meyer MD [Primary Care Provider] - What to do if you have Problems For any increased pain, shortness of breath, bleeding, nausea or vomiting, chest pain, or any unexpected problems, contact your Primary Care Provider. Call [facility] ([phone]) or report to the closest Emergency Room. Call 911 if necessary. 04/16/18 1846 <Electronically signed by Jimi Red MD> Date Jimi Red MD Cosigner Signature (If Indicated): Date CC: Hieu Meyer MD DISCHARGE INSTRUCTION Observed: 04/16/2018 Status: F Source: [place] 6:34 PM [facility] REPOSITORY [facility] Medical Records Department [address] [place] [address] Discharge Instruction 04/16/18 1833 MR#: [id number] Acct: [id number] Name: ALEXIS HASKINS Rep #: [id number] : 1955 62 From: Jimi Red MD PCP: Hieu Meyer MD Status: REG ER ED Disposition - Plan for ED Patient: Disposition: Home or Assisted Living Chief Complaint: General Illness Instructions: ED Drug React Adverse Other Referrals: Hieu Meyer MD [Primary Care Provider] - What to do if you have Problems For any increased pain, shortness of breath, bleeding, nausea or vomiting, chest pain, or any unexpected problems, contact your Primary Care Provider. Call [facility] ([phone]) or report to the closest Emergency Room. Call 911 if necessary. 04/16/18 1834 <Electronically signed by Jimi Red MD> Date Jimi Red MD Cosigner Signature (If Indicated): Date CC: Hieu Meyer MD BEDSIDE GLUCOSE Collected: 04/16/2018 Status: F Source: [place] 6:33 PM [facility] REPOSITORY TYPE CODE TESTS RESULT OUT OF REFERENCE UNITS RANGE LAB L501.080 70-110 mg/dL High BEDSIDE GLU 118 Result Comment: MANAGEMENT OF PATIENT CARE PER NURSING PROTOCOL Performed By: #### L501.080 #### [facility] [place] [address] CBC W/DIFF, AUTOMATED Collected: 04/15/2018 Status: F Source: [place] 12:01 PM [facility] REPOSITORY Order Comment: Order Date: 04/15/18 Order Info: 0184-1 - CBCD TYPE CODE TESTS RESULT OUT OF RANGE REFERENCE UNITS LAB L100.1000 4.4-11.0 K/mm3 Normal WBC 7.1 LAB L100.1200 4.2-5.4 M/mm3 Normal RBC 4.32 LAB L100.1300 12.0-15.0 g/dl Low HGB 11.7 LAB L100.1400 37-47 % Normal HCT 39.2 LAB L100.1500 81-99 fL Normal MCV 90.7 LAB L100.1600 27.0-32.0 pg Normal MCH 27.1 LAB L100.1700 32-36 g/gl Low MCHC 29.8 LAB L100.1810 11.6-14.6 % High RDW CV 14.7 LAB L100.1820 35.1-43.9 fl High RDW SD 49.0 LAB L100.1900 150-450 K/mm3 Normal PLT 239 LAB L100.2000 6.2-12.0 fl Normal MPV 10.4 LAB L100.2100 47-70 % Normal NEUT% 63.5 LAB L100.2200 19-41 % Normal LY% 25.2 LAB L100.2300 0-10 % Normal MONO% 6.7 LAB L100.2400 0-5 % Normal EO% 3.9 LAB L100.2500 0-1 % Normal BASO% 0.6 LAB L100.2550 0.0-0.9 % Normal IM GRAN % 0.100 Result Comment: IG% - Immature Granulocytes (promyelocytes, myelocytes and metamyelocytes) > 1% indicates that a LEFT SHIFT is Present. LAB L100.2620 2.0-7.7 X10 3/uL Normal Absolute Neut 4.5 LAB L100.2720 0.83-4.51 X10 3/ul Normal Absolute Lymph 1.80 Performed By: #### L100.0100, L500.4050 #### [facility] [address] [place], [address] COMPREHENSIVE METABOLIC Collected: 04/15/2018 Status: F Source: [facility] 12:01 PM [facility] REPOSITORY Order Comment: Order Date: 04/15/18 Order Info: 0786-1 - CMP TYPE CODE TESTS RESULT OUT OF RANGE REFERENCE UNITS LAB L501.0100 74-106 mg/dL Normal GLU 81 Result Comment: Please note revised GLUCOSE reference range effective 2017. LAB L501.1000 7-18 mg/dL Normal BUN 13 LAB L501.1100 0.55-1.02 mg/dL High CREAT,SERUM 1.06 Result Comment: The validity of the calculated GFR AND GFRAA in patients over 70 years has not been determined. Clinical correlation is essential. LAB L501.1110 >60 mL/min Low EST GFR 55 Result Comment: Non- GFR Calc LAB L501.1115 >60 mL/min Normal EST GFR - AA 67 Result Comment: GFR Calc LAB L501.1300 10-20 RATIO Normal BUN/CRE 12.3 LAB L501.1500 6.4-8.2 g/dL T Normal PROT 8.0 LAB L501.1800 3.2-5.0 g/dL Normal ALB 3.2 LAB L501.1950 2.2-4.2 g/dL High GLOB 4.8 LAB L501.2000 0.9-2.4 RATIO Low A/G 0.7 LAB L501.2200 8.5-10.1 mg/dL CA Normal 8.6 LAB L501.4100 15-37 U/L Normal AST 16 LAB L501.4305 45-117 U/L Normal ALK P 102 LAB L501.4405 13-56 U/L Normal ALT 16 LAB L501.4600 0.20-1.00 mg/dL T Normal BILI 0.60 LAB L501.5300 136-145 mmol/L NA Normal 139 LAB L501.5600 3.5-5.1 mmol/L K Normal 4.1 LAB L501.5900 98-107 mmol/L CL Normal 105 LAB L501.6100 21.0-32.0 mmol/L Normal CO2 29.0 LAB L501.6200 5-15 Normal GAP 5 Performed By: #### L100.0100, L500.4050 #### [facility] [address] [place], [place], [address] URINALYSIS, COMPLETE Collected: 04/15/2018 Status: F Source: [place] 12:01 PM [facility] REPOSITORY Order Comment: How was Urine Obtained? CLEAN CATCH TYPE CODE TESTS RESULT OUT OF RANGE REFERENCE UNITS LAB L400.3000 Yellow COLOR Normal Yellow LAB L400.3050 Clear Normal CLARITY Sl. Cloudy LAB L400.3200 Normal mg/dl Normal GLUCOSE, UR Normal LAB L400.3300 Negative mg/dL Normal BILIRUBIN URINE Negative LAB L400.3400 Negative mg/dl Normal KETONE UR Negative LAB L400.3465 1.002-1.030 Normal SP.GR. DIPSTX 1.010 LAB L400.3550 5.0 - 8.0 pH UR Normal 7.0 LAB L400.3600 Negative mg/dl PROT Normal DIPSTX Negative LAB L400.3700 Normal mg/dl High 1 UROBILI LAB L400.3750 Negative Normal NITRITE UR Negative LAB L400.3780 Negative /ul Normal OCCULT BLOOD-UR Negative LAB L400.3800 Negative /ul High LEUK 25 ESTERASE LAB L400.4050 0-5 /hpf WBC Normal 0-5 SEEN LAB L400.4100 0-5 /hpf 0 Normal RBC-UA SEEN LAB L400.4150 5-10 /hpf SQUAM Normal EPI 5-10 SEEN LAB L400.4300 None Seen /hpf 1+ Normal BACTERIA LAB L400.4350 <or=2+ /hpf Normal MUCUS, URINE RARE Performed By: #### L400.0001 #### [facility] [address] [place], [address] BASIC METABOLIC Collected: 02/03/2018 Status: F Source: [place] PROFILE (BMP) 10:06 AM [facility] REPOSITORY Order Comment: Order Date: 02/03/18 Order Info: 0667-1 - BMP TYPE CODE TESTS RESULT OUT OF RANGE REFERENCE UNITS LAB L501.0100 74-106 mg/dL Normal GLU 90 Result Comment: Please note revised GLUCOSE reference range effective 2017. LAB L501.1000 7-18 mg/dL High BUN 19 LAB L501.1100 0.55-1.02 mg/dL High CREAT,SERUM 1.19 Result Comment: The validity of the calculated GFR AND GFRAA in patients over 70 years has not been determined. Clinical correlation is essential. LAB L501.1110 >60 mL/min Low EST GFR 49 Result Comment: Non- GFR Calc LAB L501.1115 >60 mL/min Low EST GFR - AA 59 Result Comment: GFR Calc LAB L501.1300 10-20 RATIO Normal BUN/CRE 16.0 LAB L501.2200 8.5-10.1 mg/dL CA Normal 8.8 LAB L501.5300 136-145 mmol/L NA Normal 143 LAB L501.5600 3.5-5.1 mmol/L K Normal 4.1 LAB L501.5900 98-107 mmol/L CL Normal 105 LAB L501.6100 21.0-32.0 mmol/L Normal CO2 28.0 LAB L501.6200 5-15 Normal GAP 10 Performed By: #### L500.2500 #### [facility] [address] [place], [address] OT D/C OF NON Observed: 01/28/2018 Status: F Source: [facility] [facility] [place] 9:49 AM [facility] REPOSITORY [facility] [address] [place] [address] Fax REHABILITATION SERVICES DISCHARGE SUMMARY MR#: [id number] Acct: [id number] Name: ALEXIS HASKINS Rep #: [id number] : 1955 62 From: Meghann BLANCA/JAMES Adler Referring Dr.: Hieu Meyer MD Status: REG RCR Eval Date: Discharge Date: HP - Discharge Summary - Patient Information ALEXIS HASKINS was seen in my office for initial evaluation on 12/30/17. The following Plan of Care was established for this patient: Initial Frequency: Every Other Week Initial Duration: 2 Weeks Plan: pt to get compression hose tues- will call if she has trouble with donning/doffing compression socks - Anticipated Interventions Anticipated Interventions: Education re Diagnosis, Education re Life-long lymphedema Management, Education re Skin Care and Precautions, Education re Self Massage Techniques, Education re Correct Donning Tech,Care AND Wearing Sched Comp Garments, Home Program This patient was last seen in our office 01/17/18. Pertinent comments regarding their Occupational therapy will appear below: Pt was seen for 2 visits- she recived her compression hose and phoned today reporting she was doing fine and no longer needed services. Pt. D/c at this time At this point I will be discontinuing this patient from occupational therapy. I would be happy to see this patient again in the future if found appropriate by the physician. Thank you! EVANGELIST Hale/Vitor, CHT <Electronically signed by Meghann DIAZ CHT> 01/28/18 0949 CC: Hieu Meyer MD MK Signed RENAL ARTERY DUPLEX Observed: 01/20/2018 Status: F Source: [place] 7:51 AM [facility] REPOSITORY [facility] [address] [place] [address] Renal Artery Duplex Ultrasound 01/18/18 0809 MR#: [id number] Acct: [id number] Name: ALEXIS HASKINS Rep #: [id number] : 1955 62 From: Stan Matthew MD Attending Dr: Hieu Meyer MD Status: REG CLI Ordering Dr: Hieu Meyer MD Date: 01/18/18 Location: [facility] Sex: F C Admitted: Reason For Study: Kidney disease Right Renal Artery Left Renal Artery Right renal artery ostium Left renal artery ostium 133.0/26.4 118.0/23.7 RSV/EDV. PSV/EDV. Right renal artery proximal Left renal artery proximal PSV/EDV 137.0/27.4 PSV/EDV. 133.0/23.7 . Right renal artery mid 140.0/30.1 Left renal artery mid 136.0/34.7 PSV/EDV. PSV/EDV . Right renal artery distal Left renal artery distal 153.0/32.8 143.0/29.2 PSV/EDV. PSV/EDV. Right Renal Parenchyma Left Renal Parenchyma Upper Pole Medula 33.9/8.9 PSV/EDV. Left upper pole medulla 19.9/5.5 Right upper pole medulla EDR .26 . PSV/EDV . Right upper pole medulla R.I. .74 . Left upper pole medulla EDR .28 . Upper Chavo Cortx 22.0/5.2 PSV/EDV. Left upper pole medulla R.I. .72 . Right upper pole cortex EDR .24 . UP Cortex 20.8/6.4 PSV/EDV. Right upper pole cortex R.I. .76 . Left upper pole cortex EDR .31 . Right lower Pole medulla 25.1/5.5 Left upper pole cortex R.I. .69 . PSV/EDV . Left lower Pole medulla 31.2/8.3 Right lower pole medulla EDR .22 . PSV/EDV . Right lower pole medulla R.I. .78 . Left lower pole medulla EDR .27 . Lower Pole Cortex 17.1/6.1 PSV/EDV. Left lower pole medulla R.I. .74 . Right lower pole cortex EDR .36 . Lower Pole Cortx 23.5/7.6 PSV/EDV. Right lower pole cortex R.I. .64 . Left lower pole cortex EDR .32 . Right Renal Hilar Left lower pole cortex R.I. .68 . Right Hilar avg 49.2/12.8 PSV/EDV. Left Renal Hilar Right hilar acceleration time 59 LT Hilar avg 79.4/18.3 PSV/EDV . m/sec. Left hilar acceleration time 51 Right Renal Dimensions m/sec. Right kidney size 9.3 cm . Left Renal Dimensions Right cortical dimension 1.4 cm . Left kidney size 9.6 cm . Left cortical dimension 1.3 cm . Aorta Proximal abdominal aorta 2.1 x 2.0 cm . Distal abdominal aorta 1.6 x 1.7 cm . Proximal abdominal aorta peak systolic velocity is 109.0 cm/sec . Distal abdominal aorta peak systolic velocity is 129.0 cm/sec . Interpretation Summary Dimensions of the intra-abdominal aorta appear normal, without evidence of aneurysmal dilatation. Renal artery velocities are bilaterally normal. Acceleration times are normal bilaterally. There is no evidence of hemodynamically significant renal artery stenosis on either side. Cortical dimensions are bilaterally normal. Kidneys appear normal in size bilaterally. Ordering Physician: Hieu Meyer Referring Physician: Hieu Meyer Performed By: Monica Hernandez RVT 01/20/18 0750 Date Stan Matthew MD CC: Hieu Meyer MD Date Dictated: 01/18/18 0809 Date Transcribed: 01/20/18 0750 Survey Operations Director: Signed KIDNEY AND BLADDER Observed: 01/18/2018 Status: F Source: [place] 9:09 AM [facility] REPOSITORY [facility] Imaging Services [address] [place] [address] Kidney and Bladder MR#: [id number] Acct: [id number] Name: ALEXIS HASKINS Rep #: [id number] : 1955 F 62 From: Fredi Hutson MD PCP: Hieu Meyer MD Status: REG CLI Study: Kidney and Bladder Date of Exam: 01/18/18 Exam# [id number] Ordering Dr: Hieu Meyer MD STUDY: RENAL ULTRASOUND - COMPLETE REASON FOR EXAM: Female, 62 years old. Kidney disease. TECHNIQUE: Ultrasound evaluation of the kidneys was performed with real-time and static lazar-scale imaging. COMPARISON: None. FINDINGS: RIGHT KIDNEY: with mild renal atrophy. The right kidney measures 9.1 x 3.7 x 4.8 cm. There is a normal cortex of the right kidney. The renal cortex measures 1.6 cm. There is no right renal mass or cyst. There are no right renal calculi. There is no right hydronephrosis. DISTAL RIGHT URETER: There is non-visualization of the distal right ureter. There is no demonstrated right ureterovesical junction calculus. There is no demonstrated right ureteral jet. LEFT KIDNEY: Normal location of the left kidney, which is normal in size. The left kidney measures 10.6 x 4.5 x 5.2 cm. There is a normal cortex of the left kidney. The renal cortex measures 1.7 cm. There is no left renal mass or cyst. There are no left renal calculi. There is no left hydronephrosis. DISTAL LEFT URETER: There is non-visualization of the distal left ureter. There is no demonstrated left ureterovesical junction calculus. There is no demonstrated left ureteral jet. AORTA: Not evaluated. Not visualized. I.V.C.: Not visualized. BLADDER: Not visualized. US/Kidney and Bladder IMPRESSION: Renal size asymmetry as above. Most likely secondary to mild right renal atrophy. No mass or cyst. No hydronephrosis. No calculi identified. Electronically Signed: Fredi Hutson MD at 11:00 EDT , Service support , CC: Hieu Meyer MD Survey Operations Director: Signed SURGERY VISIT REPORT Observed: 01/08/2018 Status: F Source: [place] 11:03 AM [facility] REPOSITORY [facility] [address] [place] [address]. [address] [place] [address] OFFICE VISIT Date of Service: 01/08/18 MR#: [id number] Acct: [id number] Name: ALEXIS HASKINS Rep #: [id number] : 1955 Provider: Ankush Fletcher MD Age/Sex: 62/F Location: [facility] Status: Signed Intake Intake Visit Reasons: right thyroid FNA Chief Complaint: right thyroid FNA Alternative Medicine Practitioner Required: No Is patient in pain?: No Allergies doxycycline Allergy (Verified 01/08/18 09:05) Rash Medications Aspirin 81 mg PO DAILY 01/12/17 [History Confirmed 12/29/17] amlodipine 10 mg tablet 10 mg PO QDAY 12/29/17 [History Confirmed 12/29/17] Is last menstrual period known: No Post menopausal: Yes Patient : No PFSH Medical History Multiple thyroid nodules (Acute) Community acquired bacterial pneumonia (Acute) Hypoxia (Acute) Cellulitis (Acute) Morbid obesity with BMI of 50.0-59.9, adult (Chronic) Hypertension (Chronic) Anxiety (Chronic) Surgical History H/O carpal tunnel repair (Acute) Status post laparoscopic cholecystectomy (Acute) Family History Mother Asthma Diabetes Hypertension Sister Thyroid disorder Social History Smoking Status: Never smoker alcohol intake: never HPI HPI HPI: ALEXIS HASKINS, is a 62 F who presents to the office today for ultrasound-guided right thyroid nodule fine-needle aspiration Office Procedures 465[address] FNA Thyroid Performed By: Procedure performed by: Troy Details: Ultrasound-guided right thyroid nodule fine-needle aspiration Timeout and informed consent was obtained. 62-year-old female was taken to the procedure room. It is of note that this procedure was technically more demanding secondary to her body habitus of 344 pounds with a BMI of 57.2 The right neck was sterilely prepped and draped. Ultrasound was performed. The 1.2 cm diameter right thyroid nodule identified. Under ultrasound guidance 1% lidocaine mixed 50-50 with 0.5% Marcaine was instilled as a local anesthetic. Total of 2 cc was used. Then under ultrasound guidance a 25-gauge needle was advanced into the lesion. A rapid [id number]-[id number] motion was performed. 3 separate passes were performed. And then I performed a fourth set of passes using a 23-gauge needle. Specimen was smeared out on slides and treated with fixative. She was given activity wound care instructions. Ankush Fletcher M.D., F.A.C.S. Procedure Time Out Time Out Informed consent given: Yes Consent signed: Yes Time out checklist: patient, procedure, site marked/identified, positioning of patient, supplies available, allergies confirmed, team agrees on procedure Time out staff in room: Yes Time out verified: Yes Time out date: 01/08/18 Time out time: 09:08 Assessment AND Plan 1. Multiple thyroid nodules E04.2 Plan The patient will be notified of cytology results as they become available. It is hoped that the results are benign. The patient would be at increased operative risks secondary to her BMI of 57.2. Additionally complicating the situation is that the patient has a behavior of skin picking and has multiple areas of superficial ulceration on her face and neck. This would place her at significantly increased risk for wound infection. At her previous office appointment she was specifically asked to avoid this behavior. The number of skin lesions and wounds present today suggest that that behavior has not been altered Cc: Dr Hieu Fletcher M.D., F.A.C.S. Orders Orders: Coding Level of Care Code No Charge Diagnoses Multiple thyroid nodules E04.2 01/08/18 1103 <Electronically signed by Ankush Fletcher MD> Date Ankush Fletcher MD [facility] Signature: Date (if applicable) CC: Hieu Meyer MD ASPIRATION (SLIDES Observed: 01/08/2018 Status: F Source: [facility] ONLY) 9:20 AM [facility] REPOSITORY Patient: ALEXIS HASKINS : 1955 (62/F) Acct Num: [id number] Phys: Ankush Fletcher MD Unit Num: [id number] Loc: [facility] Specimen: [id number] Received: 01/10/18713 Spec Type: ASPIRATION TISSUES TISSUES: Thyroid gland, NOS COMMENT Correlation with clinical, radiologic findings and appropriate follow up are necessary. CYTOLOGY GROSS Received are eight smears labeled with the patient's name and designated per the requisition as right thyroid. Submitted for staining. / 01/10/18 TC:5 CPT: 46769 CYTOLOGY STUDY Slides are reviewed. The specimen is adequate for evaluation. The specimen consists of benign follicular cells. Significant amount of colloid is not seen. DIAGNOSIS CYTOLOGY Right thyroid nodule, FNA (smears): Consistent with benign follicular nodule. See cytology study and comment. SJ:cecile 01/11/18 HEADER OPERATION: Right thyroid FNA PRE-OP DIAGNOSIS: Right thyroid nodule TISSUE SUBMITTED: Right thyroid slides (8) Signed Chip Delatorre 01/11/18 <signature on file> Performed By: #### PASPS #### [facility] [address] [place], [address] BASIC METABOLIC Collected: 12/31/2017 Status: F Source: [place] PROFILE (BMP) 12:09 PM [facility] REPOSITORY Order Comment: Order Date: 12/17/17 Order Info: 0667-1 - [facility] TYPE CODE TESTS RESULT OUT OF RANGE REFERENCE UNITS LAB L501.0100 74-106 mg/dL Normal GLU 84 Result Comment: Please note revised GLUCOSE reference range effective 2017. LAB L501.1000 7-18 mg/dL Normal BUN 18 LAB L501.1100 0.55-1.02 mg/dL Normal CREAT,SERUM 1.01 Result Comment: The validity of the calculated GFR AND GFRAA in patients over 70 years has not been determined. Clinical correlation is essential. LAB L501.1110 >60 mL/min Low EST GFR 59 Result Comment: Non- GFR Calc LAB L501.1115 >60 mL/min Normal EST GFR - AA 71 Result Comment: GFR Calc LAB L501.1300 10-20 RATIO Normal BUN/CRE 17.8 LAB L501.2200 8.5-10.1 mg/dL CA Normal 8.5 LAB L501.5300 136-145 mmol/L NA Normal 139 LAB L501.5600 3.5-5.1 mmol/L K Normal 4.2 LAB L501.5900 98-107 mmol/L CL Normal 103 LAB L501.6100 21.0-32.0 mmol/L Normal CO2 31.0 LAB L501.6200 5-15 Normal GAP 5 Performed By: #### L500.2500 #### [facility] [address] [place], [address] OT GENERAL EVALUATION Observed: 12/31/2017 Status: F Source: [place] 7:49 AM [facility] REPOSITORY [facility] [address] [place] [address]. [address] [place], [place] [address] Fax REHABILITATION SERVICES INITIAL EVALUATION MR#: [id number] Acct: [id number] Name: ALEXIS HASKINS Rep #: [id number] : 1955 62 From: Meghann Hobbs OTR/L, CHT Referring Dr.: Hieu Meyer MD Status: REG RCR Insurance: [employer] Eval Date: MEDICAID Patient's Visit Information ALEXIS HASKINS is a 62 year old F, referred to Occupational Therapy by Hieu Meyer MD,, with a diagnosis of LE lymphedema. Date of Evaluation: 12/30/17 Occupational Therapist: Meghann Hobbs, OTR/L, CHT - Subjective Subjective: Pt states she was dx 4-5 years ago with lymphedema- pt states her old drElizabet years ago did have her on bumex and pt states this medication did help control her swelling. Pt states with her new dr. she has not been placed back on medication at this time- pt reports the requested her to see someone for lymphedema. Pt states she has not used compression socks in the past because her insurance would not cover the socks. pt states she has tried wraps on her legs but the wraps slide down and she can not wrap her legs, states she relied on her family. Pt states the swelling in her legs does go down at night and in the morning her legs look normal pt states she has had cellulitis x3 hospitalized x2 - Lymphedema (Circumferential Measure) Ankle: R/L 37cm/37cm Lower calf: R/L 60cm/63cm Largest calf: R/L 67cm/68cm Below knee: R/L 70/70cm - Lower Limb Functional Index Lower Extremity Functional Score: 48 - Goals Demonstrate a 20% reduction in edema by d/c: Yes Demonstrate adequate knowledge of self-massage by 2nd week: Yes Demonstrate adequate knowledge skin care/prec by 2nd week: Yes Demonstrate adequate knowledge therapeutic exercises by d/c: Yes Select approp compression garment w/donning/care/wear by d/c: Yes Voice need to replace compression garment every 4-6mo by dc: Yes - Rehabilitation General Assessment: pt demo with dry itchy skin- feels soft no fibrotic tissue noted at this time- pt demo need for ed on the need for compression garments- pt ed. on use of 20-30mmHg, and sizing of compression garments. pt ed. on skin care. pt ed on lymph system and life mtg of this dx. pts is to call insurance to see if they will cover the compression garments- if they will pt will get them- if not pt will have to wait until she can afford the compression garments. pt is to call therapist left me know what she has decided if insurance does not cover the garments. Rehabilitation Potential: Good - Anticipated Interventions Anticipated Interventions: Education re Diagnosis, Education re Life-long lymphedema Management, Education re Skin Care and Precautions, Education re Self Massage Techniques, Education re Correct Donning Tech,Care AND Wearing Sched Comp Garments, Home Program - Visit Plan Frequency: Every Other Week Duration: 2 Weeks General Plan: pt will call insurance to see if they will pay for compression socks- if so pt will get a pair to use during the day to assist in mtg of her BLE lymphedema. if insurance does not cover the garments she will have to wait until she has extra funds to pay for them. pt to call therapist for update. Therapist will advise pt to schedule when she has the compression hose or alternative compression device as circaide TEXT: Thank you for the opportunity to evaluate your patient. For Medicare and Medicare HMO plans, please review the plan of care and approve it. It will need to be FAXED BACK to us at [phone] for Medicare purposes. Please let me know if there are questions or concerns regarding this plan of care. Physician Signature: Date: <Electronically signed by Meghann BLANCA/JAMES Adler> 12/31/17 0749 CC: Hieu Meyer MD MK Signed For Medicare only, by signing this I certify the plan of care. Physicians Signature Date SURGERY VISIT REPORT Observed: 12/29/2017 Status: F Source: [place] 5:18 PM [facility] REPOSITORY [facility] [address] [place] [id number] OFFICE VISIT Date of Service: 12/29/17 MR#: [id number] Acct: [id number] Name: ALEXIS HASKINS Rep #: [id number] : 1955 Provider: Ankush Fletcher MD Age/Sex: 62/F Location: [facility] Status: Signed Intake Vital Signs12/29/17 Height 5 ft 5 in 12/29/17 Weight: 344 lb 12/29/17 Body Mass Index (BMI) 57.2 Intake Visit Reasons: Right Thyroid Nodule U/S [facility] 12/22 Alternative Medicine Practitioner Required: No Is patient in pain?: No Allergies doxycycline Allergy (Verified 12/29/17 14:36) Rash Medications Aspirin 81 mg PO DAILY 01/12/17 [History Confirmed 12/29/17] amlodipine 10 mg tablet 10 mg PO QDAY 12/29/17 [History Confirmed 12/29/17] [facility] Medical History Multiple thyroid nodules (Acute) Community acquired bacterial pneumonia (Acute) Hypoxia (Acute) Cellulitis (Acute) Morbid obesity with BMI of 50.0-59.9, adult (Chronic) Hypertension (Chronic) Anxiety (Chronic) Surgical History H/O carpal tunnel repair (Acute) Status post laparoscopic cholecystectomy (Acute) Family History Mother Asthma Diabetes Hypertension Sister Thyroid disorder Social History Smoking Status: Never smoker alcohol intake: never HPI HPI HPI: ALEXIS HASKINS, is a 62 F who presents to the office today for surgical consultation regarding an incidentally identified thyroid nodule. The patient is age 62. She has established care with Dr Hieu Meyer who is referring the patient for surgical consultation regarding ultrasound findings and clinical exam finding of thyroid abnormality. A written copy of my surgical consult recommendations will be returned to him. On clinical examination the patient was felt to have thyroid enlargement nodularity. To help evaluate this on December 21, 2017 at the [facility] thyroid ultrasound was performed. The right lobe measured 3.8 cm in length and there was a iso-echoic mass in the lower pole measuring 11.9 x 7.2 x 10.3 mm. The left lobe of the gland measured 4.9 cm in length with no demonstrated individual nodules. The patient does not have any family history of thyroid cancer. As of December 16, 2017 her T4 free direct was normal at 1.14 and her TSH was 2.11. It is of note that the patient is morbidly obese. She did have questions as to whether thyroid function could explain her lifelong obesity. She has no neck pain. No hoarseness. No dysphasia. ROS General General: Yes fatigue; no weight change, appetite, colon cancer, breast cancer or weakness HEENT HEENT: No difficulty swallowing, eye injury, eye surgery, swollen glands or hoarseness Skin Skin: No rash or changing moles Breast Breast: No left breast lump, right breast lump, nipple discharge, breast pain, abnormal mammogram, abnormal US or breast enlargement Musc Musculoskeletal: Yes arthritis; no back problems, rheumatoid arthritis, gout or joint pain Cardio Cardiovascular: Yes high blood pressure; no murmur, pacemaker, heart disease, atrial fibrillation, heart attack, heart stent, palpitations, shortness of breat with exertion or chest pain Psych Psychiatric: Yes depression; no anxiety or hearing voices Resp Respiratory: Yes cough, Yes asthma, No shortness of breath, No sleep apnea, No COPD, No emphysema, No wheezing Gastro Gastrointestinal: Yes gallbladder problem, No abdominal pain, No nausea or vomiting, No diarrhea, No constipation, No blood in stool, No acid reflux, No hemorrhoids, No ulcers, No black,tarry stools Carroll Hematologic: Yes blood thinners, No blood disorders, No bleeding, No anemia, No blood clots Neuro Neurologic: No system reviewed and no additional complaints, except as docu, No as per HPI, No abnormal walking, No abnormal hearing, No abnormal movements, No abnormal speech, No behavioral changes, No burning sensations, No confusion, No seizure-like activity, No unsteadiness, No dizziness, No localized weakness, No frequent falls, No headache(s), No lack of coordination, No loss of vision, No memory loss, No numbness, No other visual disturbances, No radiating pain, No restless legs, No sensory deficit, No fainting, No tingling, No tremor(s), No weakness, No other Exam Neck Neck: normal visual inspection Other: Thyroid does seem to be slightly larger on the left than the right. I actually cannot detect a distinct nodule. No cervical adenopathy Carotids are 3+ no bruits Chvostek is negative Chest Breast Palpation: No nipple discharge Cardio Heart Sounds: no murmurs Assessment AND Plan Problems 1. Multiple thyroid nodules E04.2 Plan I have discussed treatment options with the patient. I believe that it is reasonable to pursue an ultrasound guided final aspiration of the approximately 11 mm right thyroid nodule. She is aware of the technique, benefits, risks, alternatives. She has had an opportunity to ask and have questions answered. We will schedule and proceed at her discretion. She is aware that I have a lower level of suspicion regarding this particular nodule. I appreciate the opportunity of assisting with her surgical care Cc: Dr Hieu Fletcher M.D., F.A.C.S. Medications Discontinued: prednisone 40 mg daily for 3 days, 30 mg for next 3 days, 20 mg for ne10 mg PO DAILY xt 3 days, 10 mg for the next 3 days Discontinued Reason: Pt no longe r taking Coding Level of Care Code Prob focused, straight fwd Diagnoses Multiple thyroid nodules E04.2 12/29/17 1718 <Electronically signed by Ankush Fletcher MD> Date Ankush Fletcher MD Cosigner Signature: Date (if applicable) CC: Hieu Meyer MD PULMONARY FUNCTION Observed: 12/29/2017 Status: F Source: [place] REPORT COMP 10:52 AM [facility] REPOSITORY [facility] Pulmonary Services/Neurology [facility] [place] [address] MR#: [id number] Acct: [id number] Name: ALEXIS HASKINS Rep #: [id number] : 1955 62 From: Angel Gonzales MD Referring Dr: Hieu Meyer MD Status: REG CLI Ordering Dr: Date: Location: [facility] Sex: F C COMPLETE PULMONARY FUNCTION TEST INTERPRETATION Brief HPI: Patient is a 62 year old female, currently under the care of Dr. Meyer, who presents to [facility] for complete pulmonary function tests secondary to diagnosis of asthma. Respiratory therapist reports good effort and reproducible results. Interpretation: Forced expiration spirometry shows no large airways obstructive ventilatory defect with an FEV1 of 72 % predicted. There is no significant bronchodilator response by ATS criteria. Spirograms are of good quality and plateau normally. The respiratory flow volume loop shows a normal pattern. Lung volumes by body plethysmography show a normal total lung capacity at 5.16 L, 100 % predicted. All other lung volumes are within normal limits. Diffusion capacity by carbon monoxide is decreased at 55 % predicted. The airway resistance is normal. No previous pulmonary function tests were available for review. Impression: Isolated defect in diffusion capacity consistent with a possible pulmonary vascular disorder. Consider echocardiogram if not completed previously. 12/29/17 1052 <Electronically signed by Angel Gonzales MD> Date Angel Gonzales MD CC: Angel Gonzales MD; Hieu Meyer MD Date Dictated: 12/29/171049 Date Transcribed: 12/29/171049 Survey Operations Director: GINA Signed THYROID Observed: 12/21/2017 Status: F Source: [place] 1:03 PM [facility] REPOSITORY [facility] Imaging Services [address] [place] [address] [place] [address] Thyroid MR#: [id number] Acct: [id number] Name: ALEXIS HASKINS Rep #: [id number] : 1955 F 62 From: Vianca Sprague MD PCP: Hieu Meyer MD Status: REG CLI Study: Thyroid Date of Exam: 12/21/17 Exam# [id number] Ordering Dr: Hieu Meyer MD STUDY: THYROID ULTRASOUND REASON FOR EXAM: Female, 62 years old. Nodule TECHNIQUE: Transverse and longitudinal ultrasound evaluation of the thyroid was performed with real-time and static kilgore-scale imaging. COMPARISON: None. FINDINGS: RIGHT LOBE: The right lobe of the thyroid gland measures 3.8 x 1.6 x 1.8 cm. There is a heterogeneous echotexture. There is an isoechoic mass in the lower pole measuring 11.9 x 7.2 x 10.3 mm. This is well marginated. LEFT LOBE: The left lobe of the thyroid gland measures 4.9 x 1.6 x 1.4 cm. There is a heterogeneous echotexture. There are no demonstrated solid, cystic or complex lesions. ISTHMUS: The isthmus measures 3.0 mm. The regional lymph nodes are unremarkable. US/Thyroid IMPRESSION: There is an isoechoic nodule in the lower pole of the right lobe of the thyroid measuring 12 mm in size. The appearance is not suspicious. A follow-up ultrasound can be obtained in six months. Percutaneous sampling can be performed if the patient is anxious. Electronically Signed: Vianca Sprague MD at 18:15 EDT Tel Direct: [phone], Service support , CC: Hieu Meyer MD Survey Operations Director: Signed URINALYSIS, COMPLETE Collected: 12/16/2017 Status: F Source: [place] 11:12 AM [facility] REPOSITORY Order Comment: How was Urine Obtained? CLEAN CATCH TYPE CODE TESTS RESULT OUT OF RANGE REFERENCE UNITS LAB L400.3000 Yellow COLOR Normal Yellow LAB L400.3050 Clear Normal CLARITY Clear LAB L400.3200 Normal mg/dl Normal GLUCOSE, UR Normal LAB L400.3300 Negative mg/dL Normal BILIRUBIN URINE Negative LAB L400.3400 Negative mg/dl Normal KETONE UR Negative LAB L400.3465 1.002-1.030 Normal SP.GR. DIPSTX 1.010 LAB L400.3550 5.0 - 8.0 pH UR Normal 7.0 LAB L400.3600 Negative mg/dl PROT Normal DIPSTX Negative LAB L400.3700 Normal mg/dl Normal UROBILI Normal LAB L400.3750 Negative Normal NITRITE UR Negative LAB L400.3780 Negative /ul High 10 OCCULT BLOOD-UR LAB L400.3800 Negative /ul LEUK Normal ESTERASE Negative LAB L400.4050 0-5 /hpf WBC 0 Normal SEEN LAB L400.4100 0-5 /hpf 0 Normal RBC-UA SEEN LAB L400.4150 5-10 /hpf SQUAM Normal EPI 0-5 SEEN LAB L400.4300 None Seen /hpf 0 Normal BACTERIA SEEN LAB L400.4350 <or=2+ /hpf 0 Normal MUCUS, URINE SEEN Performed By: #### L400.0001 #### [facility] [address] [place], [address] CBC W/DIFF, AUTOMATED Collected: 12/16/2017 Status: F Source: [place] 11:12 AM [facility] REPOSITORY Order Comment: Order Date: 12/16/17 Order Info: 0184-1 - CBCD TYPE CODE TESTS RESULT OUT OF RANGE REFERENCE UNITS LAB L100.1000 4.4-11.0 K/mm3 Normal WBC 8.1 LAB L100.1200 4.2-5.4 M/mm3 Normal RBC 4.28 LAB L100.1300 12.0-15.0 g/dl Low HGB 11.7 LAB L100.1400 37-47 % Normal HCT 39.2 LAB L100.1500 81-99 fL Normal MCV 91.6 LAB L100.1600 27.0-32.0 pg Normal MCH 27.3 LAB L100.1700 32-36 g/gl Low MCHC 29.8 LAB L100.1810 11.6-14.6 % High RDW CV 15.4 LAB L100.1820 35.1-43.9 fl High RDW SD 50.6 LAB L100.1900 150-450 K/mm3 Normal PLT 284 LAB L100.2000 6.2-12.0 fl Normal MPV 10.6 LAB L100.2100 47-70 % Normal NEUT% 63.6 LAB L100.2200 19-41 % Normal LY% 23.0 LAB L100.2300 0-10 % Normal MONO% 8.2 LAB L100.2400 0-5 % Normal EO% 4.4 LAB L100.2500 0-1 % Normal BASO% 0.6 LAB L100.2550 0.0-0.9 % Normal IM GRAN % 0.200 Result Comment: IG% - Immature Granulocytes (promyelocytes, myelocytes and metamyelocytes) > 1% indicates that a LEFT SHIFT is Present. LAB L100.2620 2.0-7.7 X10 3/uL Normal Absolute Neut 5.2 LAB L100.2720 0.83-4.51 X10 3/ul Normal Absolute Lymph 1.87 Performed By: #### L100.0100, L501.9985, L500.4050, L500.4100, L501.9520, L506.0250, L506.0400, L503.0105 #### [facility] [address] [place], [place], [address] HEMOGLOBIN A1C Collected: 12/16/2017 Status: F Source: [place] 11:12 AM [facility] REPOSITORY Order Comment: Order Date: 12/16/17 Order Info: 4548-4 - A1C TYPE CODE TESTS RESULT OUT OF RANGE REFERENCE UNITS LAB L501.9985 4.2-6.3 % Normal HGB A1C 5.0 Performed By: #### L100.0100, L501.9985, L500.4050, L500.4100, L501.9520, L506.0250, L506.0400, L503.0105 #### [facility] [address] [facility] [place], [address] COMPREHENSIVE METABOLIC Collected: 12/16/2017 Status: F Source: [place] [facility] 11:12 AM [facility] REPOSITORY Order Comment: Order Date: 12/16/17 Order Info: 0786-1 - CMP Order Info: 81505-6 - LIPID Order Info: 3016-3 - TSH Order Info: 2284-8 - FOLS Order Info: 3024-7 - T4F Is Patient Taking Vitamins or Folic Acid Supplements? N TYPE CODE TESTS RESULT OUT OF RANGE REFERENCE UNITS LAB L501.0100 74-106 mg/dL Normal GLU 79 Result Comment: Please note revised GLUCOSE reference range effective 2017. LAB L501.1000 7-18 mg/dL Normal BUN 16 LAB L501.1100 0.55-1.02 mg/dL High CREAT,SERUM 1.12 Result Comment: The validity of the calculated GFR AND GFRAA in patients over 70 years has not been determined. Clinical correlation is essential. LAB L501.1110 >60 mL/min Low EST GFR 52 Result Comment: Non- GFR Calc LAB L501.1115 >60 mL/min Normal EST GFR - AA 63 Result Comment: GFR Calc LAB L501.1300 10-20 RATIO Normal BUN/CRE 14.3 LAB L501.1500 6.4-8.2 g/dL High T PROT 8.5 LAB L501.1800 3.2-5.0 g/dL Low ALB 3.1 LAB L501.1950 2.2-4.2 g/dL High GLOB 5.4 LAB L501.2000 0.9-2.4 RATIO Low A/G 0.6 LAB L501.2200 8.5-10.1 mg/dL CA Normal 8.5 LAB L501.4100 15-37 U/L Normal AST 18 LAB L501.4305 45-117 U/L High ALK P 125 LAB L501.4405 13-56 U/L Normal ALT 22 Result Comment: Please note revised ALT reference range effective 2017. LAB L501.4600 0.20-1.00 mg/dL Normal T BILI 0.30 LAB L501.5300 136-145 mmol/L Normal NA 140 LAB L501.5600 3.5-5.1 mmol/L Normal K 4.4 LAB L501.5900 98-107 mmol/L Normal CL 104 LAB L501.6100 21.0-32.0 mmol/L Normal CO2 27.0 LAB L501.6200 5-15 Normal GAP 9 Performed By: #### L100.0100, L501.9985, L500.4050, L500.4100, L501.9520, L506.0250, L506.0400, L503.0105 #### [facility] [address] [place], [address] LIPID PROFILE Collected: 12/16/2017 Status: F Source: [place] 11:12 AM [facility] REPOSITORY Order Comment: Order Date: 12/16/17 Order Info: 0786-1 - CMP Order Info: 97615-8 - LIPID Order Info: 3016-3 - TSH Order Info: 2284-8 - FOLS Order Info: 3024-7 - T4F Is Patient Taking Vitamins or Folic Acid Supplements? N TYPE CODE TESTS RESULT OUT OF RANGE REFERENCE UNITS LAB L501.4900 200 mg/dL Normal CHOL 185 Result Comment: <200 mg/dL Desirable 200-240 mg/dL Borderline >240 mg/dL High Risk LAB L501.5000 mg/dL Normal TRIG 160 Result Comment: The drugs N-Acetylcysteine and Metamizole may falsely depress this assay. Serum Triglycerides Reference Interval Normal <150 mg/dL Borderline high 150 - 199 mg/dL High 200 - 499 mg/dL Very High > or = 500 mg/dL LAB L501.6400 mg/dL Normal HDL 50 Result Comment: The drugs N-Acetylcysteine and Metamizole may falsely depress this assay. Reference Range HDL <40 mg/dL Low HDL Cholesterol HDL >or= 60 mg/dL High HDL Cholesterol LAB L501.6500 0-130 mg/dL Normal LDL 103 LAB L501.6600 5-40 mg/dL Normal VLDL 32 Performed By: #### L100.0100, L501.9985, L500.4050, L500.4100, L501.9520, L506.0250, L506.0400, L503.0105 #### [facility] [address] [place], [place], [address] THYROID STIM HORMONE Collected: 12/16/2017 Status: F Source: [place] (TSH) 11:12 AM [facility] REPOSITORY Order Comment: Order Date: 12/16/17 Order Info: 0786-1 - CMP Order Info: 66846-9 - LIPID Order Info: 301-3 - TSH Order Info: 2288 - FOLS Order Info: 3024-7 - T4F Is Patient Taking Vitamins or Folic Acid Supplements? N TYPE CODE TESTS RESULT OUT OF RANGE REFERENCE UNITS LAB L501.9520 0.358-3.74 uIU/mL Normal TSH 2.11 Performed By: #### L100.0100, L501.9985, L500.4050, L500.4100, L501.9520, L506.0250, L506.0400, L503.0105 #### [facility] [address] [place], [place], [address] FOLATES, (FOLIC ACID) Collected: 12/16/2017 Status: F Source: [place] 11:12 AM [facility] REPOSITORY Order Comment: Order Date: 12/16/17 Order Info: 0786-1 - CMP Order Info: 23831-3 - LIPID Order Info: 6-3 - TSH Order Info: 228-8 - FOLS Order Info: 3024-7 - T4F Is Patient Taking Vitamins or Folic Acid Supplements? N TYPE CODE TESTS RESULT OUT OF RANGE REFERENCE UNITS LAB L506.0250 3.1-55.4 ng/mL Normal FOLATES 26.50 Result Comment: Slight Hemolysis, Result may be falsely increased. Performed By: #### L100.0100, L501.9985, L500.4050, L500.4100, L501.9520, L506.0250, L506.0400, L503.0105 #### [facility] [address] [place], [place], [address] T4 FREE DIRECT Collected: 12/16/2017 Status: F Source: [place] 11:12 AM [facility] REPOSITORY Order Comment: Order Date: 12/16/17 Order Info: 0786-1 - CMP Order Info: 77485-8 - LIPID Order Info: 3016-3 - TSH Order Info: 2284-8 - FOLS Order Info: 3024-7 - T4F Is Patient Taking Vitamins or Folic Acid Supplements? N TYPE CODE TESTS RESULT OUT OF RANGE REFERENCE UNITS LAB L506.0400 0.76-1.46 ng/dL Normal T4 FREE 1.14 DIRECT Performed By: #### L100.0100, L501.9985, L500.4050, L500.4100, L501.9520, L506.0250, L506.0400, L503.0105 #### [facility] [address] [place], [place], [address] VITAMIN B12 Collected: 12/16/2017 Status: F Source: [place] 11:12 AM [facility] REPOSITORY Order Comment: Order Date: 12/16/17 Order Info: 2132-9 - B12 TYPE CODE TESTS RESULT OUT OF RANGE REFERENCE UNITS LAB L503.0105 211-911 pg/mL Normal Vitamin B12 481 Performed By: #### L100.0100, L501.9985, L500.4050, L500.4100, L501.9520, L506.0250, L506.0400, L503.0105 #### [facility] [address] [place], [place], [address] PROGRESS Observed: 11/22/2017 Status: COMPLETED Source: [place] 1:41 PM [facility] REPOSITORY HNO ID: [id number] Author: Bello Vallejo Service: (none) Author Type: Physician Type: Progress Notes Filed: 11/22/2017 1:57 PM Note Text: Patient presents with: Sinus Problem: sinus pressure, drainage, chest congestion, cough and headache x 1 month HPI: Feeling sick for 1 month. 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 aspirin, enteric coated (ASPIRIN, ENTERIC COATED) 81 mg EC tablet Take 81 mg by mouth once daily. amLODIPine (NORVASC) 10 mg tablet Take 10 mg by mouth twice daily. FLUoxetine HCl (PROZAC) 40 mg capsule Take 1 capsule by mouth once daily. loratadine (CLARITIN) 10 mg tablet Take 1 tablet by mouth once daily. No current facility-administered medications for this visit. ALLERGIES: ALLERGIES Allergen Reactions - Doxycycline Rash VITALS: BP 128/72 Pulse 92 Temp 37.1 ?C (98.8 ?F) (Tympanic) Resp 18 Wt (!) 148.8 kg (328 lb) SpO2 97% BMI 52.4 kg/m2 PHYSICAL EXAM: GEN: mildly ill appearing HEENT: PERRL, EOMI, conjunctiva clear Ears: canals clear, TMs without erythema, bulge, or effusion Sinuses: pressure over sinuses, sniffing discharge Throat: moist mucous membranes, no erythema, no exudate Neck: supple, no thyromegaly, no lymphadenopathy HEART: regular rate, regular rhythm with occasional irregular beats, no murmurs LUNGS: clear to auscultation, no wheezes or crackles, no increased WOB ASSESSMENT/PLAN: 1. Acute non-recurrent sinusitis, unspecified location - ICD9: 461.9, ICD10: J01.90 - Will begin treatment with - AMOXICILLIN 875 MG TABLET She has been out of bumex x 3 weeks, out of prozac also. She missed a follow up with her PCP and will need to pay a fee before she can return. Discussed non-prescription edema treatment strategies: sodium restriction, activity, leg elevation. She has worked with a is consultant for monitoring labels for sodium. Her edema has not been bad. Bello Vallejo MD ALLERGIES ALLERGIES DATE TYPE / CODE NAME / CODE REACTION SEVERITY SOURCE 08/24/2018 Drug doxycycline/B43445 Rash Unknown [place] Allergy/416 2748(RXNORM) Community 889403([facility] ED CT) Repository 08/24/2018 Drug duloxetine/X805575 rapid HR, light SV [place] Allergy/416 705(RXNORM) headed, weak Community 457329([facility] ED CT) Repository 09/01/2010 DRUG DOXYCYCLINE RASH [facility] INGREDI/[address] 886964([facility] ED CT) ENCOUNTERS ENCOUNTERS ADMIT/DISCHARGE ACCOUNT ADMITTING ENCOUNTER LOCATION SOURCE NUMBER CLASS 09/02/2018 [id number] Ambulatory [facility] ing:OPUS Repository 08/24/2018 [id number] Ambulatory [facility] ing:PAVLAB Repository 08/24/2018/08/24/20 [id number] Ambulatory BMSBuilding:B [place] [address] Repository 07/28/2018 [id number] Ambulatory [facility] ing:MTRAD Repository 04/27/2018 [id number] Ambulatory BMSBuilding:W [facility] Repository 04/26/2018 [id number] Ambulatory [facility] ing:PSN Repository 04/16/2018/04/16/20 [id number] Emergency [address] ing:ED Repository 04/15/2018 [id number] Ambulatory [facility] ing:MFPLAB Repository 02/03/2018 [id number] Ambulatory [facility] ing:MFPLAB Repository 01/18/2018 [id number] Ambulatory [facility] ing:CVS Repository 01/17/2018/01/18/20 [id number] Ambulatory [address] ing:OT Repository 01/08/2018 [id number] Ambulatory [facility] ing:LABSPEC Repository 01/08/2018/01/09/20 [id number] Ambulatory BMSBuilding:B [place] [address] Repository 12/31/2017 [id number] Ambulatory [facility] ing:MFPLAB Repository 12/29/2017/12/30/19 [id number] Ambulatory BMSBuilding:B [place] [address] Repository 12/29/2017 [id number] Ambulatory [facility] ing:PSN Repository 12/29/2017 [id number] Ambulatory BMSBuilding:W [facility] Repository 12/21/2017 [id number] Ambulatory [facility] ing:US Repository 12/16/2017 [id number] Ambulatory [facility] ing:MFPLAB Repository 11/22/2017/11/26/19 [id number] Ambulatory [address] Repository PAYERS PAYERS ENCOUNTER GUARANTOR PAYER SUBSCRIBER SOURCE 09/02/2018 ALEXIS J Primary ALEXIS J [place] [id number] Insurance:[facility]: [address] MED[address] SENIOR [id number] [address] Number: Repository [id number]: [phone] [id number] [phone] () Date:[id number] [address]YY: 09/02/2018 Secondary ALEXIS J [place] Insurance:MEDICAIDPol DENNISDOB: [facility] Number: [id number] Hospital [id number] Repository Date:2018-08-26 09/02/2018 Tertiary NOT GIVENUNK [place] Insurance:SELF PAY [facility] Number: Effective Repository Date:2018-08-26 08/24/2018 ALEXIS J Primary ALEXIS J [place] [id number] Insurance:ANTH DENNISDOB: Community [address] MED[address] SENIOR [id number] ADVANTAPolicy Number: Repository [id number]: 330 [id number] [phone] (HP) Date:0569-64-12MM [address] [place] [address]44[address]RV: 08/24/2018 Secondary ALEXIS J [place] Insurance:MEDICAIDPol DENNISDOB: Community icy Number: [id number] Hospital [id number] Repository Date:2018-08-24 08/24/2018 Tertiary NOT GIVENUNK [place] Insurance:SELF PAY [facility] Number: Effective Repository Date:2018-08-24 08/24/2018 ALEXIS J Primary ALEXIS J [place] [id number] Insurance:ANTHEM DENNISDOB: [facility] [address] [address] [address] [facility] SENIOR [id number] ADVANTAPolicy Number: Repository [id number]: 330 [id number] [phone] (HP) Date:8454-22-48HX [address] [place] [address] 890[address]DV: 08/24/2018 Secondary ALEXIS J Amanda Insurance:MEDICAIDPol DENNISDOB: Community icy Number: [id number] Hospital [id number] Repository Date:2018-08-22 08/24/2018 Tertiary NOT GIVENUNK [place] Insurance:SELF PAY [facility] Number: Effective Repository Date:2018-08-24 07/28/2018 ALEXIS J DENNISPO Primary ALEXIS J Amanda [address] [place] [address] Insurance:ANTHEM DENNISDOB: Community 35[address]Oea: 330) MEDICARE SENIOR [id number] Hospital [phone] (HP) ADVANTAPolicy Number: Repository [id number] Date:9838-62-38AP [address] [place] [address] 237[address]ME: 07/28/2018 Secondary ALEXIS J [place] Insurance:MEDICAIDPol DENNISDOB: Community icy Number: [id number] Hospital [id number] Repository Date:2018-07-28 07/28/2018 Tertiary NOT GIVENUNK [place] Insurance:SELF PAY [facility] Number: Effective Repository Date:2018-07-28 04/27/2018 ALEXIS J DENNISPO Primary ALEXIS J [place] [address], [place] Insurance:ANTHEM DENNISDOB: Community [address]Bjg: (330) MEDICARE [facility] [id number] Hospital [phone] (HP) ADVANTAPolicy Number: Repository [id number] Date:4669-92-48QY [address] [place] [address] 04[address]SL: 04/27/2018 Secondary ALEXIS J [place] Insurance:MEDICAIDPol DENNISDOB: Community icy Number: [id number] Hospital [id number] Repository Date:2018-04-19 04/27/2018 Tertiary NOT GIVENUNK Amanda Insurance:SELF PAY [facility] Number: Effective Repository Date:2018-04-27 04/26/2018 ALEXIS J DENNISPO Primary ALEXIS J [place] [address] Insurance:ANTHEM DENNISDOB: Community [address]Urt: (330) MEDICARE [facility] [id number] Hospital [id number] () ADVANTAPolicy Number: Repository [id number] Date:3161-43-22DD [facility] [address] [address]US: 04/26/2018 Secondary ALEXIS J [place] Insurance:MEDICAIDPol DENNISDOB: Community icy Number: [id number] Hospital [id number] Repository Date:2018-04-19 04/26/2018 Tertiary NOT GIVENUNK Amanda Insurance:SELF PAY [facility] Number: Effective Repository Date:2018-04-19 04/16/2018 ALEXIS J DENNISPO Primary ALEXIS J [place] [address], [place] Insurance:ANTHEM DENNISDOB: Community [address]Pho: (330) MEDICARE [facility] [id number] Hospital [phone] (HP) ADVANTAPolicy Number: Repository [id number] Date:4370-12-01VD [address] [place] [address]ET: 04/16/2018 Secondary ALEXIS J [place] Insurance:MEDICAIDPol DENNISDOB: Community icy Number: [id number] Hospital [id number] Repository Date:2018-04-16 04/16/2018 Tertiary NOT GIVENUNK [place] Insurance:SELF PAY [facility] Number: Effective Repository Date:2018-04-16 04/15/2018 ALEXIS J DENNISPOX Primary ALEXIS J [place] Insurance:ANTHEM DENNISDOB: [facility] [address]Mvf: (405) MEDICARE SENIOR [id number] Hospital [phone] () ADVANTAPolicy Number: Repository [id number] Date:7688-92-77BC [address], [place] [address]FO: 04/15/2018 Secondary ALEXIS J [place] Insurance:MEDICAIDPol DENNISDOB: Community icy Number: [id number] Hospital [id number] Repository Date:2018-04-15 04/15/2018 Tertiary NOT GIVENUNK Amanda Insurance:SELF PAY [facility] Number: Effective Repository Date:2018-04-15 02/03/2018 ALEXIS J [id number] Primary ALEXIS J Amanda [place], Insurance:ANTHEM DENNISDOB: [facility] [address]Xbr: (330) MEDICARE SENIOR [id number] [facility] [phone] (HP) ADVANTAPolicy Number: Repository [id number] Date:2588-22-01[address]V [address], [place] [address]QV: 02/03/2018 Secondary ALEXIS J Amanda Insurance:MEDICAIDPol DENNISDOB: Community icy Number: [id number] [facility] [id number] Repository Date:2018-02-03 02/03/2018 Tertiary NOT GIVENUNK [place] Insurance:SELF PAY [facility] Number: Effective Repository Date:2018-02-03 01/18/2018 ALEXIS J [id number] Primary ALEXIS J [place], Insurance:ANTHEM DENNISDOB: [facility] [place] [address]Bhp: (330) MEDICARE SENIOR 1953[facility] [phone] () ADVANTAPolicy Number: Repository [id number] Date:4291-28-23LO [address] [place] [address] [place] [address]IV: 01/18/2018 Secondary ALEXIS J Amanda Insurance:MEDICAIDPol DENNISDOB: [facility] icy Number: [id number] Hospital [id number] Repository Date:2018-01-05 01/18/2018 Tertiary NOT GIV[place]UNK [place] Insurance:SELF PAY [facility] Number: Effective Repository Date:2018-01-05 01/17/2018 ALEXIS J [id number] Primary ALEXIS J [place], Insurance:ANTHEM DENNISDOB: [facility] [place] [address]Ega: (330) MEDICARE SENIOR 1953[facility] [id number] () ADVANTAPolicy Number: Repository [id number] Date:5199-24-07QN [address] [place] [address] [place] [address]AU: 01/17/2018 Secondary ALEXIS J [place] Insurance:MEDICAIDPol DENNISDOB: [facility] icy Number: [id number] Hospital [id number] Repository Date:2017-11-25 01/17/2018 Tertiary NOT GIVENUNK [place] Insurance:SELF PAY [facility] Number: Effective Repository Date:2017-12-20 01/08/2018 ALEXIS J [id number] Primary ALEXIS J [place], Insurance:ANTHEM DENNISDOB: [facility] [place] [address]Gur: (330) MEDICARE SENIOR 1953[facility] [phone] () ADVANTAPolicy Number: Repository [id number] Date:6724-91-22[address] [place] [address]XG: 01/08/2018 Secondary ALEXIS J [place] Insurance:MEDICAIDPol DENNISDOB: [facility] icy Number: [id number] Hospital [id number] Repository Date:2018-01-08 01/08/2018 Tertiary NOT GIVENUNK [place] Insurance:SELF PAY [facility] Number: Effective Repository Date:2018-01-08 01/08/2018 ALEXIS J [id number] Primary ALEXIS J [place], Insurance:ANTHEM DENNISDOB: [facility] [address]Nmy: (330) MEDICARE SENIOR [id number] Hospital [phone] () ADVANTAPolicy Number: Repository [id number] Date:3426-81-00FM [address] [place] [address]DJ: 01/08/2018 Secondary ALEXIS J [place] Insurance:MEDICAIDPol DENNISDOB: [facility] icy Number: [id number] Hospital [id number] Repository Date:2017-12-29 01/08/2018 Tertiary NOT GIVENUNK Amanda Insurance:SELF PAY [facility] Number: Effective Repository Date:2018-01-08 12/31/2017 ALEXIS J [id number] Primary ALEXIS J [place], Insurance:ANTHEM DENNISDOB: [facility] [address]Jac: (330) MEDICARE SENIOR [id number] Hospital [id number] () ADVANTAPolicy Number: Repository [id number] Date:2034-73-37[id number] [place] [address]PK: 12/31/2017 Secondary ALEXIS J Amanda Insurance:MEDICAIDPol DENNISDOB: Community icy Number: [id number] [facility] [id number] Repository Date:2017-12-31 12/31/2017 Tertiary NOT GIV[place]UNK [place] Insurance:SELF PAY [facility] Number: Effective Repository Date:2017-12-31 12/29/2017 ALEXIS J [id number] Primary ALEXIS J [place], Insurance:ANTHEM DENNISDOB: [facility] [place] [address]Kla: (330) MEDICARE SENIOR [id number] [facility] [phone] (HP) ADVANTAPolicy Number: Repository [id number] Date:8394-50-11FR [address] [place] [address]ZM: 12/29/2017 Secondary ALEXIS J [place] Insurance:MEDICAIDPol DENNISDOB: [facility] icy Number: [id number] Hospital [id number] Repository Date:2017-12-24 12/29/2017 Tertiary NOT GIV[place]UNK [place] Insurance:SELF PAY [facility] Number: Effective Repository Date:2017-12-24 12/29/2017 ALEXIS J [id number] Primary ALEXIS J [place], Insurance:ANTHEM DENNISDOB: [facility] [place] [address]Gxm: (330) MEDICARE SENIOR [id number] [facility] [phone] () ADVANTAPolicy Number: Repository [id number] Date:3651-84-12[address], [place] [address]EU: 12/29/2017 Secondary ALEXIS J [place] Insurance:MEDICAIDPol DENNISDOB: [facility] icy Number: [id number] Hospital [id number] Repository Date:2017-12-17 12/29/2017 Tertiary NOT GIV[place]UNK [place] Insurance:SELF PAY [facility] Number: Effective Repository Date:2017-12-17 12/29/2017 ALEXIS J [id number] Primary ALEXIS J [place], Insurance:ANTHEM DENNISDOB: [facility] [place] [address]Qkq: (330) MEDICARE SENIOR [id number] [facility] [phone] () ADVANTAPolicy Number: Repository [id number] Date:6993-70-17[address] [place] [address]AU: 12/29/2017 Secondary ALEXIS J Amanda Insurance:MEDICAIDPol DENNISDOB: [facility] icy Number: [id number] Hospital [id number] Repository Date:2017-12-17 12/29/2017 Tertiary NOT GIVENUNK Amanda Insurance:SELF PAY [facility] Number: Effective Repository Date:2017-12-29 12/21/2017 ALEXIS J [id number] Primary ALEXIS J [place], Insurance:ANTHEM DENNISDOB: [place] [address]Mqe: (330) MEDICARE SENIOR [id number] [facility] [phone] () ADVANTAPolicy Number: Repository [id number] Date:3447-12-37LN [address] [place] [address]YE: 12/21/2017 Secondary ALEXIS J [place] Insurance:MEDICAIDPol DENNISDOB: [facility] icy Number: [id number] Hospital [id number] Repository Date:2017-12-17 12/21/2017 Tertiary NOT GIVENUNK [place] Insurance:SELF PAY [facility] Number: Effective Repository Date:2017-12-17 12/16/2017 ALEXIS J DENNISPO Primary ALEXIS J [place] [address] [place] [address], [place]:ANTHEM DENNISDOB: [facility] [address]Zbt: (330) MEDICARE [facility] [id number] Hospital [phone] (HP) ADVANTAPolicy Number: Repository [id number] Date:9170-94-61KE [address] [place] [address]SY: 12/16/2017 Secondary ALEXIS J [place] Insurance:MEDICAIDPol DENNISDOB: Community icy Number: [id number] Hospital [id number] Repository Date:2017-12-16 12/16/2017 Tertiary ALEXIS J [place] Insurance:MEDICARE DENNISDOB: Community [facility] A [facility] [id number] Hospital Number: Repository [id number] Date:2017-12-16 12/16/2017 Tertiary NOT GIVENUNK [place] Insurance:SELF PAY [facility] Number: Effective Repository Date:2017-12-16
== END ==
PROVIDERS: Family Provider Family Medicine; PCP Family Medicine; Referring Provider Nurse Practitioner Women's Health; Visit Provider Nurse Practitioner Women's Health
DX: E04.2 Nontoxic multinodular goiter (principal); N95.0 Postmenopausal bleeding
CPT/HCPCS: 36415; 84443; 85025

== ENCOUNTER → 2018-09-02 12:20 | Outpatient (CLI) | payer MEDICARE, MEDICAID, SELFPAY ==
[2018-08-24 14:21] VITALS: BMI 58.8
--- NOTE | 2018-09-02 12:22 | US_ITS ---
STUDY: ULTRASOUND OF THE FEMALE PELVIS - COMPLETE REASON FOR EXAM: Female, 62 years old. Postmenopausal bleeding. TECHNIQUE: Transabdominal and Transvaginal. The urinary bladder was nearly empty on initial scanning and in view of the patient's body habitus, endovaginal imaging was also utilized. TECHNICAL QUALITY: Adequate. COMPARISON: None. FINDINGS: The uterus is anteverted and is in a midline position. The uterus measures 7.4 x 3.9 x 4.5 cm. There were a few small Nabothian cysts of the cervix. The endometrium measures 10.9 mm in thickness, and is hyperechoic. There is no demonstrated endometrial mass. There is no demonstrated myometrial mass. I.U.D. - The patient does not have an I.U.D. The right ovary is non-visualized. There is no visualized right adnexal mass or complex lesion. There is normal arterial and normal venous vascularity. The left ovary is non-visualized. There is no visualized left adnexal mass or complex lesion. There is normal arterial and normal venous vascularity. There is no fluid in the cul-de-sac. The pre void volume of the bladder was 80 ml. Polycystic ovary disease: No. US/Transvaginal Non- IMPRESSION: 1. Thickened endometrium, which is atypical in this postmenopausal patient unless there is history of hormonal supplementation. Clinical correlation needed. 2. The ovaries are nonvisualized. Electronically Signed: Hadley Tavera MD at 14:58 EST , Service support ,
--- NOTE | 2018-09-02 12:22 | US_ITS ---
STUDY: ULTRASOUND OF THE FEMALE PELVIS - COMPLETE REASON FOR EXAM: Female, 62 years old. Postmenopausal bleeding. TECHNIQUE: Transabdominal and Transvaginal. The urinary bladder was nearly empty on initial scanning and in view of the patient's body habitus, endovaginal imaging was also utilized. TECHNICAL QUALITY: Adequate. COMPARISON: None. FINDINGS: The uterus is anteverted and is in a midline position. The uterus measures 7.4 x 3.9 x 4.5 cm. There were a few small Nabothian cysts of the cervix. The endometrium measures 10.9 mm in thickness, and is hyperechoic. There is no demonstrated endometrial mass. There is no demonstrated myometrial mass. I.U.D. - The patient does not have an I.U.D. The right ovary is non-visualized. There is no visualized right adnexal mass or complex lesion. There is normal arterial and normal venous vascularity. The left ovary is non-visualized. There is no visualized left adnexal mass or complex lesion. There is normal arterial and normal venous vascularity. There is no fluid in the cul-de-sac. The pre void volume of the bladder was 80 ml. Polycystic ovary disease: No. US/Pelvic (Non ) IMPRESSION: 1. Thickened endometrium, which is atypical in this postmenopausal patient unless there is history of hormonal supplementation. Clinical correlation needed. 2. The ovaries are nonvisualized. Electronically Signed: Hadley Tavera MD at 14:58 EST , Service support ,
== END ==
PROVIDERS: Family Provider Family Medicine; PCP Family Medicine; Referring Provider Nurse Practitioner Women's Health; Visit Provider Nurse Practitioner Women's Health
DX: N95.0 Postmenopausal bleeding (principal)
CPT/HCPCS: 76830; 76856

== ENCOUNTER 2018-10-13 10:50 | Day surgery (SDC) | payer MEDICARE, MEDICAID, SELFPAY ==
[2018-08-24 14:21] VITALS: BMI 58.8
[2018-10-03 08:36] VITALS: BMI 58.8
[2018-10-13] VITALS (9 sets, daily range): BP systolic 90–139; BP diastolic 44–66; PULSE 51–80; RESP 16–18; TEMP 36.6–37.1; O2SAT 96–100; BMI 58.4
[2018-10-13 11:31] LABS: Absolute Lymphocyte Count 2.13 X10^3/ul (0.83-4.51); Absolute Neutrophil Count 7.2 X10^3/uL (2.0-7.7); Basophil# 0.04 X10^3/uL; Basophil% 0.4 % (0-1); Eosinophil# 0.14 X10^3/uL; Eosinophils% 1.4 % (0-5); Hematocrit 42.3 % (37-47); Hemoglobin 13.2 g/dl (12.0-15.0); Lymphocyte # 2.13 X10^3/ul (4.0); Mean Corp Hgb Conc 31.2 g/gl (32-36); Mean Platelet Vol. 10.3 fl (6.2-12.0); Monocyte# 0.66 X10^3/uL; Monocyte% 6.5 % (0-10); Neutrophil # 7.16 X10^3/uL (2.7-7.7); Neutrophil % 70.5 % (47-70); Platelet Count 311 K/mm3 (150-450); RBC Distribution Width CV 14.9 % (11.6-14.6); RBC Distribution Width SD 49.6 fl (35.1-43.9); Red Blood Count 4.55 M/mm3 (4.2-5.4); White Blood Count 10.2 K/mm3 (4.4-11.0)
[2018-10-13 11:39] LABS: POSITIVE COUNT NO; POSITIVE DIFFERENTIAL NO; POSITIVE MORPHOLOGY NO
--- NOTE | 2018-10-13 12:22 | OP.PCM_ITS ---
Problem List (1) Postmenopausal bleeding Status: Acute Comment: cytotec prep plan d and c hysteroscopy Report of Operation Date of Procedure: 10/13/18 Pre-Operative Diagnosis: PMB Post-Operative Diagnosis: same Surgery/Procedure Performed:: D&C hysteroscopy Description of Surgical Findings:: thickened irregular cystic lining Type of Anesthesia:: Local MAC Special Medications: none Specimen's removed: EMC Drains: wilson Estimated Blood Loss (mL): minimal Fluids Replaced: crystalloid Description of Procedure: Patient was prepped and draped in a normal sterile fashion under MAC anesthesia. A weighted speculum was placed in the vagina and the anterior lip of the cervix was grasped with a single-tooth tenaculum. A paracervical block was placed with 1% lidocaine. Cervix was progressively dilated to allow passage of a 5 mm hysteroscope. The lining was fully visualized . Uterine sounded to 11 cm a thickened lining that was irregular and cystic appearing Curettage was perfo rmed and a significant amount of tissue was removed, sent to pathology. All instruments were removed from the vagina and excellent hemostasis was noted. Patient was awoken and taken to recovery in stable condition. Grafts/Implants Used: none - Complications none - Admit VTE Documentation VTE Present on Admission: No
--- NOTE | 2018-10-13 12:24 | DCINST_ITS ---
Discharge Diet: No Restrictions Discharge Activity: Return to Normal Activity, May Shower, May Take a Tub Bath Allergies/Adverse Reactions: Allergies doxycycline Allergy (Verified 10/03/18 08:34) Rash duloxetine [From Cymbalta] Adverse Reaction (Severe, Verified 10/03/18 08:34) rapid HR, light headed, weak Medications to take at Discharge medroxyprogesterone 10 mg tablet 10 mg PO .COMPLEX #45 tab 08/24/18 misoprostol 200 mcg tablet 200 mcg PO QPCHS #2 tab 10/12/18 Primary Care Physician: Hieu Meyer MD [Primary Care Provider] - Test Results: Test results from this visit will be discussed in further detail at your follow- up appointment, if applicable. Please Follow Up With: Krissy Kuo MD - [phone]
--- NOTE | 2018-10-13 12:25 | EMB_PTH ---
PATIENT: ALEXIS HASKINS [place] [facility] [place][id number] AGE/SX: 63/F ROOM: RE10/13/[address]: Dr. Krissy Kuo MD : 1955 BED: DIS: 10/13/2018 SPEC #: [id number] RECD: 10/13/18 13:21 STATUS: KATALINA KIAH #: [id number] ARMANI: 10/13/18 12:[address]: Krissy Kuo DEPT: SURGICAL PATHOLOGY RECD BY: Kamaljit Summers ENTERED: 10/13/18 13:33 SP TYPE: ENDOM BX/C TAMAR DR: Dr. Hieu Meyer MD Tissues: Endometrium, NOS Procedures: Surgery Specimen Level IV HEADER OPERATION: Hysteroscopy, dilation and curettage PRE-OP DIAGNOSIS: Postmenopausal bleeding TISSUE SUBMITTED: Endometrial curettings MICROSCOPIC DIAGNOSIS Endometrium, curettings: Simple cystic hyperplasia without atypia. Benign stromal hyperplasia suggestive of hormonal defect. Rare strips of benign superficial squamous mucosa and endocervical mucosa with chronic inflammation. AM:cecile 10/14/18 MICROSCOPIC DESCRIPTION Slides are reviewed. GROSS DESCRIPTION Received in fixative is one container labeled with the patient's name and designated endometrial curettings. The specimen consists of multiple fragments of hemorrhagic soft tissue that in aggregate measure 3 x 2.5 x 0.3 cm. The entire specimen is submitted in one cassette. / SJ:cecile 10/13/18 TC:5 CPT: 44097
--- OUTSIDE RECORDS SUMMARY | 2018-12-18 01:35 | XMS RPT_ITS ---
:1955 Author Organization OHIP Support Name Relationship Address Phone GRISELDA MANN Unavailable Unavailable + [place] [address] D Unavailable Unavailable Unavailable PRAKASH HASKINS Unavailable Unavailable + GRISELDA MANN Unavailable Unavailable + [place] [address] D Unavailable Unavailable Unavailable PRAKASH HASKINS Unavailable Unavailable + GRISELDA MANN Unavailable 0 + [place] [address] D Unavailable Unavailable Unavailable PRAKASH HASKINS Unavailable 0 + [place] [address] SUZIEGRISELDA PENNINGTON Unavailable Unavailable + D Unavailable Unavailable Unavailable PRAKASH HASKINS Unavailable Unavailable + GRISELDA MANN Unavailable Unavailable + D Unavailable Unavailable Unavailable CHUNG DERASE Unavailable Unavailable + GRISELDA MANN Unavailable [address] + [place] [address] D Unavailable Unavailable Unavailable EUGENE DERASZIE Unavailable . + [place] [address] JOHNATHAN GRISELDA Un[address] + [place] [address] D Unavailable Unavailable Unavailable BRAEDEN, SUZZIE Unavailable Unavailable + [place] [address] JOHNATHAN GRISELDA Unavailable [address] + [place] [address] D Unavailable Unavailable Unavailable YURICK, SUZZIE Unavailable Unavailable + [place] [address] JOHNATHAN GRISELDA Unavailable [address] + [place] [address] D Unavailable Unavailable Unavailable DAPHNE DERAS Unavailable Unavailable + [place] [address] BERSCH, GRISELDA Unavailable [address] + [place] [address] D Unavailable Unavailable Unavailable BERSCH, GRISELDA Unavailable [address] + [place] [address] D Unavailable Unavailable Unavailable BERSCH, GRISELDA [place] [address] D Unavailable Unavailable Unavailable BERSCH, GRISELDA Unavailable [address] + [place] [address] D Unavailable Unavailable Unavailable BERSCH, GRISELDA Unavailable [address] + [place] [address] D Unavailable Unavailable Unavailable BERSCH, GRISELDA Unavailable [address] + [place] [address] D Unavailable Unavailable Unavailable BERSCH, GRISELDA [place] [address] D Unavailable Unavailable Unavailable BERSCH, GRISELDA Unavailable [address] + [place] [address] D Unavailable Unavailable Unavailable BERSCH, GRISELDA Unavailable [address] + [place] [address] D Unavailable Unavailable Unavailable BERSCH, GRISELDA Unavailable [address] + [place] [address] D Unavailable Unavailable Unavailable BERSCH, GRISELDA [place] [address] D Unavailable Unavailable Unavailable BERSCH, GRISELDA Unavailable [phone] [place] [address] D Unavailable Unavailable Unavailable BERSCH, GRISELDA Unavailable [address] + [place] [address] D Unavailable Unavailable Unavailable DAPHNE DERAS Unavailable Unavailable + [place] [address] Care Team Providers Name Role Phone Krissy Kuo Attending Unavailable Hieu Meyer Referring Unavailable Krissy Kuo Attending Unavailable Krissy Kuo Referring Unavailable Hieu Meyer Primary Care Unavailable Hieu Meyer Attending Unavailable Hieu Meyer Primary Care Unavailable Hieu Meyer Attending Unavailable Hieu Meyer Referring Unavailable Hieu Meyer Primary Care Unavailable Schinner, Hieu E Attending Unavailable Schinner, Hieu E Referring Unavailable Schinner, Hieu E Primary Care Unavailable Krissy Kuo Attending Unavailable Krissy Kuo Referring Unavailable Schinner, Hieu E Primary Care Unavailable Krissy Kuo Consulting Unavailable Schinner, Hieu E Attending Unavailable Schinner, Hieu E Referring Unavailable Schinner, Hieu E Primary Care Unavailable CeAnkush ruiz Attending Unavailable Schinner, Hieu E Referring Unavailable Schinner, Hieu E Primary Care Unavailable SchinnerHieu E Attending Unavailable Schinner, Hieu E Primary Care Unavailable CebulAnkush Attending Unavailable Schinner, Hieu E Referring Unavailable Schinner, Hieu E Primary Care Unavailable Cejoseph, Ankush Attending Unavailable Cebul Ankush Referring Unavailable Schinner, Hieu E Primary Care Unavailable Angel Gonzales Attending Unavailable Schinner, Hieu E Referring Unavailable Schinner, Hieu E Attending Unavailable Schinner, Hieu E Referring Unavailable Schinner, Hieu E Primary Care Unavailable SchinHieu acuña E Attending Unavailable Schinner, Hieu E Primary Care Unavailable SchinHieu acuña E Attending Unavailable Schinner, Hieu E Primary Care Unavailable Schinner, Hieu E Primary Care Unavailable Jimi Red Attending Unavailable Jimi Red Referring Unavailable SchinnerHieu E Attending Unavailable Schinner, Hieu E Primary Care Unavailable Schinner, Hieu E Referring Unavailable Lukasz Flores D.O. Attending Unavailable Schpearlner, Hieu E Referring Unavailable SchinnerHieu E Attending Unavailable Schinner, Hieu E Referring Unavailable Schinner, Hieu E Primary Care Unavailable Demi Krishna Attending Unavailable Schpearlner, Hieu E Referring Unavailable Demi Krishna Attending Unavailable Siloam, Molly Referring Unavailable Schinner, Hieu E Primary Care Unavailable Demi Krishna Attending Unavailable Erendira Demi Referring Unavailable Schinner, Hieu E Primary Care Unavailable PROBLEMS PROBLEMS DATE TYPE CONDITION / CODE ATTENDING STATUS SOURCE 10/03/2018 Unknown N95.0 - Marcanthony, Active [place] Postmenopausal Krissy [facility] bleeding / Hospital N95.0(ICD-10) Repository 08/24/2018 Unknown E04.2 - Nontoxic SiloamDemi roth Active [place] multinodular goiter Community / E04.2(ICD-10) Hospital Repository 07/28/2018 Unknown M25.561 - Pain in Schinner, Hieu Active [place] right knee / E [facility] M25.561(ICD-10) Hospital Repository 07/28/2018 Unknown M25.562 - Pain in Hieu Meyer left knee / E [facility] M25.562(ICD-10) Hospital Repository 05/05/2018 Unknown J45.909 - Rosie Haas Unspecified asthma, D.O. Community uncomplicated / Hospital J45.909(ICD-10) Repository 01/18/2018 Unknown N28.9 - Disorder of Hieu Meyer kidney and ureter, E Community unspecified / Hospital N28.9(ICD-10) Repository 05/07/2018 Unknown I10 - Essential Hieu Meyer (primary) E [facility] hypertension / Hospital I10(ICD-10) Repository PROCEDURES PROCEDURES No Procedure Records FoundRESULTS RESULTS OPERATIVE REPORT Observed: 10/13/2018 Status: F Source: [place] 12:39 PM [facility] REPOSITORY [facility] Medical Records Department [address] [place] [address] Operative Report 10/13/18 1221 MR#: [id number] Acct: [id number] Name: ALEXIS HASKINS Rep #: [id number] : 1955 63 From: Krissy Kuo MD PCP: Hieu Meyer MD Status: REG [facility] Y Location: [place] [address] Problem List (1) Postmenopausal bleeding Status: Acute Comment: cytotec prep plan d and c hysteroscopy Report of Operation Date of Procedure: 10/13/18 Pre-Operative Diagnosis: PMB Post-Operative Diagnosis: same Surgery/Procedure Performed:: D AND C hysteroscopy Description of Surgical Findings:: thickened irregular cystic lining Type of Anesthesia:: Local MAC Special Medications: none Specimen's removed: EMC Drains: wilson Estimated Blood Loss (mL): minimal Fluids Replaced: crystalloid Description of Procedure: Patient was prepped and draped in a normal sterile fashion under MAC anesthesia. A weighted speculum was placed in the vagina and the anterior lip of the cervix was grasped with a single-tooth tenaculum. A paracervical block was placed with 1% lidocaine. Cervix was progressively dilated to allow passage of a 5 mm hysteroscope. The lining was fully visualized . Uterine sounded to 11 cm a thickened lining that was irregular and cystic appearing Curettage was performed and a significant amount of tissue was removed, sent to pathology. All instruments were removed from the vagina and excellent hemostasis was noted. Patient was awoken and taken to recovery in stable condition. Grafts/Implants Used: none - Complications none - Admit VTE Documentation VTE Present on Admission: No 10/13/18 1239 <Electronically signed by Krissy Kuo MD> Date Krissy Kuo MD CC: Hieu Meyer MD; Krissy Kuo MD Signed ENDOMETRIAL BX/CURETTINGS Observed: 10/13/2018 Status: F Source: [place] 12:25 PM [facility] REPOSITORY Patient: ALEXIS HASKINS : 1955 (63/F) Acct Num: [id number] Phys: Shiela BAUMAN,Krissy Unit Num: [id number] Loc: [facility] Specimen: [id number] Received: 10/13/18 - 1320 Spec Type: ENDOM BX/C TISSUES 1 TISSUES: Endometrium, NOS GROSS DESCRIPTION Received in fixative is one container labeled with the patient's name and designated endometrial curettings. The specimen consists of multiple fragments of hemorrhagic soft tissue that in aggregate measure 3 x 2.5 x 0.3 cm. The entire specimen is submitted in one cassette. / SJ:cecile 10/13/18 TC:5 CPT: 98170 HEADER OPERATION: Hysteroscopy, dilation and curettage PRE-OP DIAGNOSIS: Postmenopausal bleeding TISSUE SUBMITTED: Endometrial curettings MICROSCOPIC DESCRIPTION Slides are reviewed. MICROSCOPIC DIAGNOSIS Endometrium, curettings: Simple cystic hyperplasia without atypia. Benign stromal hyperplasia suggestive of hormonal defect. Rare strips of benign superficial squamous mucosa and endocervical mucosa with chronic inflammation. AM:cecile 10/14/18 Signed Kyler Marie, 10/14/18 <signature on file> Performed By: #### PEMB #### [facility] [address] [place], [address] DISCHARGE INSTRUCTION Observed: 10/13/2018 Status: F Source: [place] 12:24 PM [facility] REPOSITORY [facility] Medical Records Department [address] [address] Instructions for Home/Discharge Instructions 10/13/18 1224 MR#: [id number] Acct: [id number] Name: ALEXIS HASKINS Rep #: [id number] : 1955 63 From: Krissy Kuo MD PCP: Hieu Meyer MD Status: REG [facility] Discharge Diet: No Restrictions Discharge Activity: Return to Normal Activity, May Shower, May Take a Tub Bath Allergies/Adverse Reactions: Allergies doxycycline Allergy (Verified 10/03/18 08:34) Rash duloxetine [From Cymbalta] Adverse Reaction (Severe, Verified 10/03/18 08:34) rapid HR, light headed, weak Medications to take at Discharge medroxyprogesterone 10 mg tablet 10 mg PO .COMPLEX #45 tab 08/24/18 misoprostol 200 mcg tablet 200 mcg PO QPCHS #2 tab 10/12/18 Primary Care Physician: Hieu Meyer MD [Primary Care Provider] - Test Results: Test results from this visit will be discussed in further detail at your follow-up appointment, if applicable. Please Follow Up With: Krissy Kuo MD - [phone] 10/13/18 1224 <Electronically signed by Krissy Kuo MD> Date Krissy Kuo MD CC: Hieu Meyer MD Signed CBC W/DIFF, AUTOMATED Collected: 10/13/2018 Status: F Source: [place] 11:15 AM [facility] REPOSITORY TYPE CODE TESTS RESULT OUT OF RANGE REFERENCE UNITS LAB L100.1000 4.4-11.0 K/mm3 Normal WBC 10.2 LAB L100.1200 4.2-5.4 M/mm3 Normal RBC 4.55 LAB L100.1300 12.0-15.0 g/dl Normal HGB 13.2 LAB L100.1400 37-47 % Normal HCT 42.3 LAB L100.1500 81-99 fL Normal MCV 93.0 LAB L100.1600 27.0-32.0 pg Normal MCH 29.0 LAB L100.1700 32-36 g/gl Low MCHC 31.2 LAB L100.1810 11.6-14.6 % High RDW CV 14.9 LAB L100.1820 35.1-43.9 fl High RDW SD 49.6 LAB L100.1900 150-450 K/mm3 Normal PLT 311 LAB L100.2000 6.2-12.0 fl Normal MPV 10.3 LAB L100.2100 47-70 % High NEUT% 70.5 LAB L100.2200 19-41 % Normal LY% 21.0 LAB L100.2300 0-10 % Normal MONO% 6.5 LAB L100.2400 0-5 % Normal EO% 1.4 LAB L100.2500 0-1 % Normal BASO% 0.4 LAB L100.2550 0.0-0.9 % Normal IM GRAN % 0.200 Result Comment: IG% - Immature Granulocytes (promyelocytes, myelocytes and metamyelocytes) > 1% indicates that a LEFT SHIFT is Present. LAB L100.2620 2.0-7.7 X10 3/uL Normal Absolute Neut 7.2 LAB L100.2720 0.83-4.51 X10 3/ul Normal Absolute Lymph 2.13 Performed By: #### L100.0100 #### [facility] [address] [place], [place], [address] TYPE AND SCREEN Collected: 10/13/2018 Status: F Source: [place] 11:15 AM [facility] REPOSITORY Order Comment: Reason for Type AND Screen/Red Cells: SURGERY TYPE CODE TESTS RESULT OUT OF RANGE REFERENCE UNITS LAB B10.0800 A Normal BLOOD TYPE GEL POSITIVE LAB B100.4000 Normal Antibody NEGATIVE Screen Performed By: #### B101.7450 #### [facility] [address] [place], [address] [facility] OFFICE VISIT Observed: 10/03/2018 Status: F Source: [place] REPORT 9:13 AM [facility] REPOSITORY [facility] [address] [place] [address] OFFICE VISIT Date of Service: 10/03/18 MR#: [id number] Acct: [id number] Name: ALEXIS HASKINS Rep #: [id number] : 1955 Provider: Krissy Kuo MD Age/Sex: 63/F Location: [facility] Status: Signed Intake Vital Signs10/03/18 Body Mass Index (BMI) 58.8 10/03/18 Height 5 ft 6 in 10/03/18 Weight: 360 lb 4 oz 10/03/18 Body Mass Index (BMI) 58.1 10/03/18 Blood Pressure 120/84 H Intake Visit Reasons: Pre-op Chief Complaint: pre surgical consult Naturopathic Physician Required: No Is patient in pain?: No Allergies doxycycline Allergy (Verified 10/03/18 08:34) Rash duloxetine [From Cymbalta] Adverse Reaction (Severe, Verified 10/03/18 08:34) rapid HR, light headed, weak Medications medroxyprogesterone 10 mg tablet 10 mg PO .COMPLEX #45 tab 08/24/18 [Rx Confirmed 10/03/18] Is last menstrual period known: No Post menopausal: No Patient : No : No [facility] Medical History Multiple thyroid nodules (Acute) Community acquired bacterial pneumonia (Acute) Hypoxia (Acute) Cellulitis (Acute) Morbid obesity with BMI of 50.0-59.9, adult (Chronic) Hypertension (Chronic) Anxiety (Chronic) Surgical History H/O carpal tunnel repair (Acute) Status post laparoscopic cholecystectomy (Acute) Family History Mother Asthma Diabetes Hypertension Sister Thyroid disorder Social History Smoking Status: Former smoker alcohol intake: never substance use type: does not use caffeine: Yes what type of physical activity do you participate in: walking seatbelt use: always do you feel safe at home: Yes additional social history: Retired HPI Pre-op: Details: ALEXIS HASKINS is a 63 year old who presents for postmenopausal bleeding. she is still having some small bleeding daily and is on progesterone right now to stabilize the lining. she had an attempted biopsy but had stenosis. Pregancy History 2 Elective abortions Hx Para 2 Spontaneous abortions Past Pregnancies Del. DatName GA/WeeksOutcome Route [facility] LocaProviderFOB e ht en ia tn Unknown Patt 1978 Unknown Prakash 1981 ROS Const Constitutional: Denies poor appetite, headache(s), fever(s), increased appetite, weight gain, weight loss or fatigue ENT ENT: Denies dry mouth GI GI: Reports as per HPI; denies vomiting, nausea, abdominal pain or constipation : Reports as per HPI Skin Skin/Breast: Denies hair loss, change in hair, dry skin, breast pain, breast skin changes or breast lump Exam Const General: cooperative, healthy appearing, comfortable, no acute distress, well developed Nutritional Appearance: average body habitus Orientation: alert HENAK Head: normal to inspection, normocephalic Ears: hearing grossly normal bilaterally, external ears normal Nose: external nose normal, nares normal Face and sinus: normal facial exam Neck Neck: normal visual inspection, trachea midline, no lymphadenopathy Thyroid: thyroid normal Resp Effort AND Inspection: normal respiratory effort GI Inspection: normal to inspection Palpation: soft, not firm, no masses, no guarding, nontender Musc Other: gross motor intact no deficits, full bilateral strength Skin General: no rashes or lesions noted Neuro Motor: muscle tone normal throughout Assessment AND Plan Problems 1. Postmenopausal bleeding N95.0 cytotec prep plan d and c hysteroscopy Plan discussed surgical risks including risks of anesthesia, infection, bleeding, injury to bowel, bladder or blood vessels, and patient wishes to proceed with surgery. Coding Level of Care Code No Charge Diagnoses Postmenopausal bleeding N95.0 10/03/18 0913 <Electronically signed by Krissy Kuo MD> Date Krissy Kuo MD Cosigner Signature: Date (if applicable) CC: TRANSVAGINAL Observed: 09/02/2018 Status: F Source: [place] NON- 12:22 PM [facility] REPOSITORY [facility] Imaging Services [address] [address] Transvaginal Non- MR#: [id number] Acct: [id number] Name: ALEXIS HASKINS Rep #: [id number] : 1955 F 62 From: Anatoliy Tavera MD PCP: Hieu Meyer MD Status: REG CLI Study: Transvaginal Non- Date of Exam: 09/02/18 Exam# [id number] Ordering Dr: Demi Krishna SPACE CONTROL SUPERVISOR-Shell STUDY: ULTRASOUND OF THE FEMALE PELVIS - [...] , CC: ALEJA Krishna; Hieu Meyer MD Accident Investigator: Signed PELVIC (NON ) Observed: 09/02/2018 Status: F Source: [place] 12:22 PM [facility] REPOSITORY [facility] Imaging Services [address] [place] [address] Pelvic (Non ) MR#: [id number] Acct: [id number] Name: ALEXIS HASKINS Rep #: [id number] : 1955 F 62 From: Anatoliy Tavera MD PCP: Hieu Meyer MD Status: REG CLI Study: Pelvic (Non ) Date of Exam: 09/02/18 Exam# [id number] Ordering Dr: Demi Krishna SPACE CONTROL SUPERVISOR-C STUDY: ULTRASOUND OF THE FEMALE PELVIS - [...] , CC: ALEJA Krishna; Hieu Meyer MD Accident Investigator: Signed [employer] OFFICE VISIT Observed: 08/24/2018 Status: F Source: [place] REPORT 3:31 PM [facility] REPOSITORY [facility] [address] [place], [place] [address] OFFICE VISIT Date of Service: 08/24/18 MR#: [id number] Acct: [id number] Name: ALEXIS HASKINS Rep #: [id number] : 1955 Provider: ALEJA Krishna Age/Sex: 62/F Location: [facility] Status: Signed Intake Vital Signs08/24/18 Height 5 ft 6 in 08/24/18 Weight: 364 lb 4 oz 08/24/18 Body Mass Index (BMI) 58.8 08/24/18 Blood Pressure 124/82 H Intake Visit Reasons: PMB, referral from Dr. Hieu Meyer, No [facility] Naturopathic Physician Required: No Is patient in pain?: No Allergies doxycycline Allergy (Verified 08/24/18 14:24) Rash duloxetine [From Cymbalta] Adverse Reaction (Severe, Verified 08/24/18 14:24) rapid HR, light headed, weak Medications Aspirin 81 mg PO DAILY 01/12/17 [History Confirmed 08/24/18] amlodipine 10 mg tablet 10 mg PO QDAY 12/29/17 [History Confirmed 08/24/18] fluoxetine 20 mg capsule 20 mg PO DAILY 08/24/18 [History Confirmed 08/24/18] medroxyprogesterone 10 mg tablet 10 mg PO .COMPLEX #45 tab 08/24/18 [Rx Confirmed 08/24/18] Is last menstrual period known: No Post menopausal: No Patient : No : No PFSH Medical History Multiple thyroid [...] Denies sexual activity. Brought to office by [facility]um[facility] at [facility]. Pregancy History 2 Elective abortions Hx Para 2 Spontaneous abortions Past Pregnancies Del. DatName GA/WeeksOutcome Route [facility] LocaProviderFOB e ht en tn Unknown Patt [...] Z68.43 08/24/18 1531 <Electronically signed by Demi HILTON> Date Demi Krishna NP-C Cosigner Signature: Date (if applicable) CC: CBC W/DIFF, AUTOMATED Collected: 08/24/2018 Status: F Source: [place] 3:12 PM [facility] REPOSITORY TYPE CODE TESTS RESULT OUT OF [...] Lymph 2.05 Performed By: #### L100.0100 #### [facility] [address] [place], [address] THYROID STIM HORMONE Collected: 08/24/2018 Status: F Source: [place] (TSH) 3:12 PM [facility] REPOSITORY TYPE CODE TESTS RESULT OUT OF RANGE REFERENCE UNITS LAB L501.9520 0.358-3.74 uIU/mL Normal TSH 1.61 Performed By: #### L501.9520 #### [facility] [address] [place], [address] KNEE 3 VIEWS Observed: 07/28/2018 Status: F Source: [place] 9:54 AM [facility] REPOSITORY [facility] Imaging Services [address] [place] [address] Knee 3 Views MR#: [id number] Acct: [id number] Name: ALEXIS HASKINS Rep #: [id number] : 1955 F 62 From: Dontae Napier MD PCP: Hieu Meyer MD Status: REG CLI Study: Knee 3 Views Date of Exam: 07/28/18 Exam# [id number] Ordering Dr: Hieu Meyer MD STUDY: X-RAY [...] Service support , CC: Hieu Meyer MD Accident Investigator: Signed KNEE 3 VIEWS Observed: 07/28/2018 Status: F Source: [place] 9:54 AM [facility] REPOSITORY [facility] Imaging Services [address] [place] [address] Knee 3 Views MR#: [id number] Acct: [id number] Name: ALEXIS HASKINS Rep #: [id number] : 1955 F 62 From: Dontae Napier MD PCP: Hieu Meyer MD Status: REG CLI Study: Knee 3 Views Date of Exam: 07/28/18 Exam# [id number] Ordering Dr: Hieu Meyer MD STUDY: X-RAY [...] Service support , CC: Hieu Meyer MD Accident Investigator: Signed BRONCHOPROVOCATION CHALLENGE Observed: 04/27/2018 Status: F Source: [place] 1:27 PM [facility] REPOSITORY [facility] Pulmonary Services/Neurology [address] [place] [address] MR#: [id number] Acct: [id number] Name: ALEXIS HASKINS Rep #: [id number] : 1955 62 From: Lukasz Flores DO Referring Dr: Hieu Meyer MD Status: REG CLI Ordering Dr: Date: Location: [facility] Sex: F C Bronchoprovocation Challenge [...] Date Lukasz Flores DO CC: Date Dictated: 04/27/188 Date Transcribed: 04/27/181317 Accident Investigator: DB Signed 12 LEAD ELECTROCARDIOGRAM Observed: 04/19/2018 Status: F Source: [place] 1:00 PM [facility] REPOSITORY [facility] Cardiovascular Services [address] [place] [address] 12 Lead EKG 04/16/18 1826 MR#: [id number] Acct: [id number] Name: ALEXIS HASKINS Rep #: [id number] : 1955 62 From: Bryan Segovia MD [...] Normal ECG Confirmed by LUCA BAUMAN, BRYAN ([id number]), video tape editor KALYANI MORROW ([id number]) on 04/19/2018 1:00:18 PM Referred By: Jimi Red Confirmed By:BRYAN SEGOVIA MD 04/19/18 1300 Date Bryan Segovia MD CC: Hieu Meyer MD; Jimi Red MD Signed EMERGENCY DEPARTMENT Observed: 04/16/2018 Status: F Source: [place] SUMMARY 6:46 PM [facility] REPOSITORY [facility] Medical Records Department [address] [place] [address] Emergency Department Summary 04/16/18 1832 MR#: [id number] Acct: [id number] Name: ALEXIS HASKINS Rep #: [id number] : 1955 62 From: Jimi Red MD [...] Medication reaction This note was generated with Freenomation software. It may contain incorrect words, spelling, [...] your Primary Care Provider. Call [facility] ([phone]) or report to the closest Emergency Room. Call 911 if necessary. 04/16/181845 <Electronically signed by Jimi Red MD> Date Jimi Red MD Cosigner Signature (If Indicated): Date CC: Hieu Meyer MD DISCHARGE INSTRUCTION Observed: 04/16/2018 Status: F Source: [place] 6:34 PM [facility] REPOSITORY [facility] Medical Records Department [address] [place] [address] Discharge Instruction 04/16/18 425 MR#: [id number] Acct: [id number] Name: ALEXIS HASKINS Rep #: [id number] : 1955 62 From: Jimi Red MD [...] your Primary Care Provider. Call [facility] ([phone]) or report to the closest Emergency Room. Call 911 if necessary. 04/16/18 1834 <Electronically signed by Jimi Red MD> Date Jimi Red MD Cosigner Signature (If Indicated): Date CC: Hieu Meyer MD BEDSIDE GLUCOSE Collected: 04/16/2018 Status: F Source: [place] 6:33 PM [facility] REPOSITORY TYPE CODE TESTS RESULT OUT OF REFERENCE UNITS RANGE LAB L501.080 70-110 mg/dL High BEDSIDE GLU 118 Result Comment: MANAGEMENT OF PATIENT CARE PER NURSING PROTOCOL Performed By: #### L501.080 #### [facility] Point of Care [facility] [place] [address] [place] [address] CBC W/DIFF, AUTOMATED Collected: 04/15/2018 Status: F Source: [place] 12:01 PM [facility] REPOSITORY Order Comment: Order Date: 04/15/18 Order [...] 1.80 Performed By: #### L100.0100, L500.4050 #### [facility] Laboratory [address] [place], [place], [address] COMPREHENSIVE METABOLIC Collected: 04/15/2018 Status: F Source: [place] [facility] 12:01 PM [facility] REPOSITORY Order Comment: Order Date: 04/15/18 Order [...] 5 Performed By: #### L100.0100, L500.4050 #### [facility] Laboratory [address] [place], [address] URINALYSIS, COMPLETE Collected: 04/15/2018 Status: F Source: [place] 12:01 PM [facility] REPOSITORY Order Comment: How was Urine Obtained? [...] URINE RARE Performed By: #### L400.0001 #### [facility] Laboratory [address] [place], [address] BASIC METABOLIC Collected: 02/03/2018 Status: F Source: [place] PROFILE (BMP) 10:06 AM [facility] REPOSITORY Order Comment: Order Date: 02/03/18 Order Info: 0667-1 - [facility] TYPE CODE TESTS RESULT OUT OF RANGE [...] GAP 10 Performed By: #### L500.2500 #### [facility] Laboratory [address] [place], [address] OT D/C OF NON Observed: 01/28/2018 Status: F Source: [place] RETURNING PT 9:49 AM [facility] REPOSITORY [facility] Occupational Therapy [facility] [address] [place], [place] [address] Fax REHABILITATION SERVICES DISCHARGE SUMMARY MR#: [id number] Acct: [id number] Name: ALEXIS HASKINS Rep #: [id number] : 1955 62 From: Meghann BLANCA/FELICIA AdlerT Referring Dr.: Hieu Meyer MD Status: REG [...] found appropriate by the physician. Thank you! Meghann Hobbs, EVANGELIST/Vitor, CHT <Electronically signed by Meghann BLANCA/Vitor, CHT> 01/28/18 0949 CC: Hieu Meyer MD MK Signed RENAL ARTERY DUPLEX Observed: 01/20/2018 Status: F Source: [place] 7:51 AM [facility] REPOSITORY [facility] Cardiovascular Services [address] [place] [address] Renal Artery Duplex Ultrasound 01/18/18 0809 MR#: [id number] Acct: [id number] Name: ALEXIS HASKINS Rep #: [id number] : 1955 62 From: Stan Matthew MD Attending Dr: Hieu Meyer MD Status: REG CLI Ordering Dr: Hieu Meyer MD Date: 01/18/18 Location: [facility] Sex: F C Admitted: Reason For Study: [...] MD Date Dictated: 01/18/18 0809 Date Transcribed: 01/20/18749 Accident Investigator: Signed KIDNEY AND BLADDER Observed: 01/18/2018 Status: F Source: [place] 9:09 AM [facility] REPOSITORY [facility] Imaging Services [address] [place] [address] Kidney and Bladder MR#: [id number] Acct: [id number] Name: ALEXIS HASKINS Rep #: [id number] : 1955 F 62 From: Fredi Hutson MD PCP: Hieu Meyer MD Status: REG CLI Study: Kidney and Bladder Date of Exam: 01/18/18 Exam# [id number] Ordering Dr: Hieu Meyer MD STUDY: RENAL [...] Service support , CC: Hieu Meyer MD Accident Investigator: Signed SURGERY VISIT REPORT Observed: 01/08/2018 Status: F Source: [place] 11:03 AM [facility] REPOSITORY [facility] [address] [place] [address] [address] [place] [address] OFFICE VISIT Date of Service: 01/08/18 MR#: [id number] Acct: [id number] Name: ALEXIS HASKINS Rep #: [id number] : 1955 Provider: Ankush Fletcher MD Age/Sex: 62/F Location: [facility] Status: Signed Intake Intake Visit Reasons: right thyroid FNA Chief Complaint: right thyroid FNA Naturopathic Physician Required: No Is patient in pain?: No [...] right thyroid nodule fine-needle aspiration Office Procedures 084[address] FNA Thyroid Performed By: Procedure performed by: [...] was advanced into the lesion. A rapid fams-zxo-zjyzt motion was performed. 3 separate passes were [...] ASPIRATION (SLIDES Observed: 01/08/2018 Status: F Source: [place] ONLY) 9:20 AM [facility] REPOSITORY Patient: ALEXIS HASKINS : 1955 (62/F) Acct Num: [id number] Phys: Justine BAUMAN,Ankush Unit Num: [id number] Loc: LABSPEC Specimen: [id number] Received: 01/10/18713 Spec Type: ASPIRATION TISSUES TISSUES: Thyroid gland, NOS COMMENT Correlation with clinical, radiologic findings and appropriate follow up are necessary. CYTOLOGY GROSS Received are eight smears labeled with the patient's name and designated per the requisition as right thyroid. Submitted for staining. / 01/10/18 TC:5 CPT: 32567 CYTOLOGY STUDY Slides are reviewed. The specimen [...] on file> Performed By: #### PASPS #### [place] [facility] Laboratory [facility] [place], [address] BASIC METABOLIC Collected: 12/31/2017 Status: F Source: [place] PROFILE (BMP) 12:09 PM [facility] REPOSITORY Order Comment: Order Date: 12/17/17 Order Info: 0667-1 - BMP TYPE CODE [...] GAP 5 Performed By: #### L500.2500 #### [facility] Laboratory [address] [place], [address] OT GENERAL EVALUATION Observed: 12/31/2017 Status: F Source: [place] 7:49 AM [facility] REPOSITORY [facility] Occupational Therapy [facility] [address] [place], [place] [address] Fax REHABILITATION SERVICES INITIAL EVALUATION MR#: [id number] Acct: [id number] Name: ALEXIS HASKINS Rep #: [id number] : 1955 62 From: Meghann Hobbs OTR/L, CHT Referring Dr.: Hieu Meyer MD Status: REG RCR Insurance: ANTH MEDICARE SENIOR [place] Eval Date: MEDICAID Patient's Visit Information ALEXIS HASKINS is a 62 year old F, referred to Occupational Therapy by Hieu Meyer MD,, with a diagnosis of LE lymphedema. Date of Evaluation: 12/30/17 Occupational Therapist: Meghann Hobbs, EVANGELIST/Vitor, CHT - Subjective Subjective: Pt states she was dx 4-5 years ago with lymphedema- pt states her old drElizabet years ago did have her on bumex and pt states this medication did help control her swelling. Pt states with her new drElizabet she has not been placed back on [...] to be FAXED BACK to us at [phone] for Medicare purposes. Please let me know if there are questions or concerns regarding this plan of care. Physician Signature: Date: <Electronically signed by Meghann DIAZ CHT> 12/31/17 0749 CC: Hieu Meyer MD ITZ Signed For Medicare only, by signing this I certify the plan of care. Physicians Signature Date SURGERY VISIT REPORT Observed: 12/29/2017 Status: F Source: [place] 5:18 PM [facility] REPOSITORY [facility] [place] [address] [address] OFFICE VISIT Date of Service: 12/29/17 MR#: [id number] Acct: [id number] Name: ALEXIS HASKINS Rep #: [id number] : 1955 Provider: Ankush Fletcher MD Age/Sex: 62/F Location: [facility] Status: Signed Intake Vital Signs12/29/17 Height 5 ft 5 in 12/29/17 Weight: 344 lb 12/29/17 Body Mass Index (BMI) 57.2 Intake Visit Reasons: Right Thyroid Nodule [facility] 12/22 Naturopathic Physician Required: No Is patient in pain?: No Allergies doxycycline Allergy (Verified 12/29/17 14:36) Rash Medications Aspirin 81 mg PO DAILY 01/12/17 [History Confirmed 12/29/17] amlodipine 10 mg tablet 10 mg PO QDAY 12/29/17 [History Confirmed 12/29/17] PFSH Medical History Multiple thyroid nodules (Acute) [...] this on December 21, 2017 at the [facility] thyroid ultrasound was performed. The right lobe [...] PULMONARY FUNCTION Observed: 12/29/2017 Status: F Source: [place] REPORT COMP 10:52 AM [facility] REPOSITORY [facility] Pulmonary Services/Neurology [address] [facility] [place] [address] MR#: [id number] Acct: [id number] Name: ALEXIS HASKINS Rep #: [id number] : 1955 62 From: Angel Gonzales MD Referring Dr: Hieu Meyer MD Status: REG CLI Ordering Dr: Date: Location: [facility] Sex: F C COMPLETE PULMONARY FUNCTION TEST INTERPRETATION Brief HPI: Patient is a 62 year old female, currently under the care of Dr. Meyer, who presents to [facility] for complete pulmonary function tests secondary to [...] Gonzales MD; Hieu Meyer MD Date Dictated: 12/29/17 1050 Date Transcribed: 12/29/171049 Accident Investigator: BA Signed THYROID Observed: 12/21/2017 Status: F Source: [place] 1:03 PM [facility] REPOSITORY [facility] Imaging Services [address] [place] [address] Thyroid MR#: [id number] Acct: [id number] Name: ALEXIS HASKINS Rep #: [id number] : 1955 F 62 From: Vianca Sprague MD PCP: Hieu Meyer MD Status: REG CLI Study: Thyroid Date of Exam: 12/21/17 Exam# [id number] Ordering Dr: Hieu Meyer MD STUDY: THYROID [...] Sprague MD at 18:15 EDT Tel Direct: [phone], Service support , CC: Hieu Meyer MD Accident Investigator: Signed URINALYSIS, COMPLETE Collected: 12/16/2017 Status: F Source: [place] 11:12 AM [facility] REPOSITORY Order Comment: How was Urine Obtained? [...] URINE SEEN Performed By: #### L400.0001 #### [facility] [place], [address] CBC W/DIFF, AUTOMATED Collected: 12/16/2017 Status: F Source: [place] 11:12 AM [facility] REPOSITORY Order Comment: Order Date: 12/16/17 Order [...] L500.4050, L500.4100, L501.9520, L506.0250, L506.0400, L503.0105 #### [facility] Laboratory [address] [place], [place], [address] HEMOGLOBIN A1C Collected: 12/16/2017 Status: F Source: [place] 11:12 AM [facility] REPOSITORY Order Comment: Order Date: 12/16/17 Order Info: 4548-4 - A1C TYPE CODE TESTS RESULT OUT OF RANGE REFERENCE UNITS LAB L501.9985 4.2-6.3 % Normal HGB A1C 5.0 Performed By: #### L100.0100, L501.9985, L500.4050, L500.4100, L501.9520, L506.0250, L506.0400, L503.0105 #### [facility] Laboratory [address] [place], [address] COMPREHENSIVE METABOLIC Collected: 12/16/2017 Status: F [facility]:12 AM [facility] REPOSITORY Order Comment: Order Date: 12/16/17 Order Info: 0786-1 - CMP Order Info: 02278-0 - LIPID Order Info: 3016-3 - TSH [...] L500.4050, L500.4100, L501.9520, L506.0250, L506.0400, L503.0105 #### [facility] Laboratory [address] [place], [address] LIPID PROFILE Collected: 12/16/2017 Status: F Source: [place] 11:12 AM [facility] REPOSITORY Order Comment: Order Date: 12/16/17 Order Info: 0786-1 - CMP Order Info: 80225-1 - LIPID Order Info: 3016-3 - TSH [...] L500.4050, L500.4100, L501.9520, L506.0250, L506.0400, L503.0105 #### [facility] Laboratory [address] [place], [place], [address] THYROID STIM HORMONE Collected: 12/16/2017 Status: F Source: [place] (TSH) 11:12 AM [facility] REPOSITORY Order Comment: Order Date: 12/16/17 Order Info: 0786-1 - CMP Order Info: 50638-8 - LIPID Order Info: 3016-3 - TSH Order Info: 2284-8 - FOLS Order Info: 3024-7 - T4F Is Patient Taking Vitamins or Folic Acid Supplements? N TYPE CODE TESTS RESULT OUT OF RANGE REFERENCE UNITS LAB L501.9520 0.358-3.74 uIU/mL Normal TSH 2.11 Performed By: #### L100.0100, L501.9985, L500.4050, L500.4100, L501.9520, L506.0250, L506.0400, L503.0105 #### [facility] Laboratory [address] [place], [place], [address] FOLATES, (FOLIC ACID) Collected: 12/16/2017 Status: F Source: [place] 11:12 AM [facility] REPOSITORY Order Comment: Order Date: 12/16/17 Order Info: 0786-1 - CMP Order Info: 36912-6 - LIPID Order Info: 301-3 - TSH Order Info: 8 - FOLS Order Info: 302-7 - T4F Is Patient Taking Vitamins or Folic Acid Supplements? N TYPE CODE TESTS RESULT OUT OF RANGE REFERENCE UNITS LAB L506.0250 3.1-55.4 ng/mL Normal FOLATES 26.50 Result Comment: Slight Hemolysis, Result may be falsely increased. Performed By: #### L100.0100, L501.9985, L500.4050, L500.4100, L501.9520, L506.0250, L506.0400, L503.0105 #### [facility] Laboratory [address] [place], [place], [address] T4 FREE DIRECT Collected: 12/16/2017 Status: F Source: [place] 11:12 AM [facility] REPOSITORY Order Comment: Order Date: 12/16/17 Order Info: 0786-1 - CMP Order Info: 23053-8 - LIPID Order Info: 3015-11 - TSH Order Info: 2288 - FOLS Order Info: 302-7 - T4F Is Patient Taking Vitamins or Folic Acid Supplements? N TYPE CODE TESTS RESULT OUT OF RANGE REFERENCE UNITS LAB L506.0400 0.76-1.46 ng/dL Normal T4 FREE 1.14 DIRECT Performed By: #### L100.0100, L501.9985, L500.4050, L500.4100, L501.9520, L506.0250, L506.0400, L503.0105 #### [facility] Laboratory [address] [place], [place], [address] VITAMIN B12 Collected: 12/16/2017 Status: F Source: [place] 11:12 AM [facility] REPOSITORY Order Comment: Order Date: 12/16/17 Order Info: 2132-9 - B12 TYPE CODE TESTS RESULT OUT OF RANGE REFERENCE UNITS LAB L503.0105 211-911 pg/mL Normal Vitamin B12 481 Performed By: #### L100.0100, L501.9985, L500.4050, L500.4100, L501.9520, L506.0250, L506.0400, L503.0105 #### [facility] Laboratory [address] [place], [address] PROGRESS Observed: 11/22/2017 Status: COMPLETED Source: [place] 1:41 PM [facility] REPOSITORY HNO ID: [id number] Author: Bello Vallejo Service: (none) Author Type: [...] leg elevation. 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 Her edema has not been bad. Bello Vallejo MD ALLERGIES ALLERGIES DATE TYPE / CODE NAME / CODE REACTION SEVERITY SOURCE 10/03/2018 Drug doxycycline/E86662 Rash Unknown [place] Allergy/416 2748(RXNORM) Community 615668([facility] ED CT) Repository 10/03/2018 Drug duloxetine/F809640 rapid HR, light SV [place] Allergy/416 705(RXNORM) headed, weak Community 882551([facility] ED CT) Repository 09/01/2010 DRUG DOXYCYCLINE RASH [facility] INGREDI/[address] 120625([facility] ED CT) ENCOUNTERS ENCOUNTERS ADMIT/DISCHARGE ACCOUNT ADMITTING ENCOUNTER LOCATION SOURCE NUMBER CLASS 10/13/2018 [id number] Ambulatory BMSBuilding:B [place] MS.CF.[facility] Repository 10/13/2018/10/13/[id number] ing:SDCRoom: Repository AC09 10/03/2018/10/03/19 [id number] Ambulatory BMSBuilding:B [place] 19 MS.[facility] Repository 09/02/2018 [id number] Ambulatory [facility] ing:OPUS Repository 08/24/2018 [id number] Ambulatory [facility] ing:PAVLAB Repository 08/24/2018/08/24/20 [id number] Ambulatory BMSBuilding:B [place] 18 MS.[facility] Repository 07/28/2018 [id number] [facility] ing:MTRAD Repository 04/27/2018 [id number] Ambulatory BMSBuilding:W [place] [facility] Repository 04/26/2018 [id number] Ambulatory [facility] ing:PSN Repository 04/16/2018/04/16/20 [id number] Emergency [place] [facility] ing[facility]ED Repository 04/15/[id number] [facility] Hospital ing:MFPLAB Repository 02/03/2018 [id number] [facility] ing:MFPLAB Repository 01/18/2018 [id number] [facility] Hospital ing:CVS Repository 01/17/2018/01/18/20 [id number] Ambulatory [place] [facility] Hospital ing:OT Repository 01/08/2018 [id number] [facility] Hospital ing:LABSPEC Repository 01/08/2018/01/09/20 [id number] Ambulatory BMSBuilding:B [place] 18 MS.[facility] Hospital Repository 12/31/2017 [id number] [facility] Hospital ing:MFPLAB Repository 12/29/2017/12/30/19 [id number] Ambulatory BMSBuilding:B [place] 18 MS.[facility] Repository 12/29/2017 [id number] [facility]ulatory [facility] Hospital ing:PSN Repository 12/29/2017 [id number] Ambulatory BMSBuilding:W [facility] Repository 12/21/2017 [id number] [facility] ing:US Repository 12/16/2017 [id number] [facility] ing:MFPLAB Repository 11/22/2017/11/26/19 [id number] Ambulatory [address] Repository PAYERS PAYERS ENCOUNTER GUARANTOR PAYER SUBSCRIBER SOURCE 10/13/2018 ALEXIS Santoro Primary ALEXIS [id number] Insurance:LAMAR MAR: [facility] MEDICARE [facility] [id number] Number: Repository [address]Hff: (686) [id number] [phone] () Date:5672-51-45[place] 3764148WP: 10/13/2018 Secondary ALEXIS J [place] Insurance:MEDICAIDPol DENNISDOB: Community icy Number: [id number] Hospital [id number] Repository Date:2018-08-25 10/13/2018 Tertiary NOT GIVENUNK [place] Insurance:SELF PAY [facility] Number: Effective Repository Date:2018-10-13 10/13/2018 ALEXIS J Primary ALEXIS J [place] [id number] Insurance:ANTHEM DENNISDOB: [address] MED[address] SENIOR [id number] ADVANTAPolicy Number: Repository [id number]: (330 [id number] [phone] (HP) Date:1229-49-60TQ [id number] [place] [address]CD: 10/13/2018 Secondary ALEXIS J [place] Insurance:MEDICAIDPol DENNISDOB: Community icy Number: [id number] Hospital [id number] Repository Date:2018-08-25 10/13/2018 Tertiary NOT GIVENUNK [place] Insurance:SELF PAY [facility] Number: Effective Repository Date:2018-08-25 10/03/2018 ALEXIS J Primary NOT GIVENUNK [place] [id number] Insurance:SELF PAY [address] Number: Effective Repository [phone]: (330) Date:2018-10-03 [phone] (HP) 09/02/2018 ALEXIS J Primary ALEXIS J [place] [id number] Insurance:ANTHEM DENNISDOB: Community [address] MEDICARE SENIOR [id number] ADVANTAPolicy Number: Repository [id number]: (330 [id number] [phone] (HP) Date:3337-52-45IE [id number] [place] [address] 33219CW: 09/02/2018 Secondary ALEXIS J [place] Insurance:MEDICAIDPol DENNISDOB: [facility] icy Number: [id number] Hospital [id number] Repository Date:2018-08-26 09/02/2018 Tertiary NOT GIVENUNK [place] Insurance:SELF PAY [facility] Number: Effective Repository Date:2018-08-26 08/24/2018 ALEXIS J Primary ALEXIS J [place] [id number] Insurance:ANTHEM DENNISDOB: Community [address] MEDICARE SENIOR [id number] ADVANTAPolicy Number: Repository [id number]: (330 [id number] [phone] (HP) Date:0097-67-72FS [address], [place] [address]XJ: 08/24/2018 Secondary ALEXIS J [place] Insurance:MEDICAIDPol DENNISDOB: Community icy Number: [id number] Hospital [id number] Repository Date:2018-08-24 08/24/2018 Tertiary NOT GIVENUNK [place] Insurance:SELF PAY [facility] Number: Effective Repository Date:2018-08-24 08/24/2018 ALEXIS J Primary ALEXIS J [place] [id number] Insurance:ANTHEM DENNISDOB: Community [address] MEDICARE SENIOR [id number] ADVANTAPolicy Number: Repository [id number]: (330 [id number] [phone] (HP) Date:5608-55-09YX [address] [place] [address]UT: 08/24/2018 Secondary ALEXIS J [place] Insurance:MEDICAIDPol DENNISDOB: [facility] icy Number: [id number] Hospital [id number] Repository Date:2018-08-22 08/24/2018 Tertiary NOT GIVENUNK [place] Insurance:SELF PAY [facility] Number: Effective Repository Date:2018-08-24 07/28/2018 ALEXIS J DENNISPO Primary ALEXIS J [place] [address] [place] [address] Insurance:ANTHEM DENNISDOB: [facility] 277[address]Xlh: (330) MEDICARE SENIOR [id number] Hospital [phone] () ADVANTAPolicy Number: Repository [id number] Date:7849-50-80QL [address], [place] [address]SX: 07/28/2018 Secondary ALEXIS J [place] Insurance:MEDICAIDPol DENNISDOB: Community icy Number: [id number] Hospital [id number] Repository Date:2018-07-28 07/28/2018 Tertiary NOT GIVENUNK [place] Insurance:SELF PAY [facility] Number: Effective Repository Date:2018-07-28 04/27/2018 ALEXIS J DENNISPO Primary ALEXIS J [place] [address] Insurance:ANTHEM DENNISDOB: Community [address]Mof: (468) MEDICARE SENIOR [id number] Hospital [phone] () ADVANTAPolicy Number: Repository [id number] Date:9863-30-76KM [address] [address]RJ: 04/27/2018 Secondary ALEXIS J [place] Insurance:MEDICAIDPol DENNISDOB: Community icy Number: [id number] Hospital [id number] Repository Date:2018-04-19 04/27/2018 Tertiary NOT GIVENUNK [place] Insurance:SELF PAY [facility] Number: Effective Repository Date:2018-04-27 04/26/2018 ALEXIS J DENNISPO Primary ALEXIS J [place] [address] Insurance:ANTHEM DENNISDOB: Community [address]Mel: ([phone]) MEDICARE SENIOR [id number] Hospital [phone] () ADVANTAPolicy Number: Repository [id number] Date:8504-26-92KN [address] [place] [address]GM: 04/26/2018 Secondary ALEXIS J [place] Insurance:MEDICAIDPol DENNISDOB: Community icy Number: [id number] Hospital [id number] Repository Date:2018-04-19 04/26/2018 Tertiary NOT GIVENUNK [place] Insurance:SELF PAY [facility] Number: Effective Repository Date:2018-04-19 04/16/2018 ALEXIS J DENNISPO Primary ALEXIS J [place] [address] Insurance:ANTHEM DENNISDOB: Community [address]Xza: (330) MEDICARE SENIOR [id number] Hospital [id number] (HP) ADVANTAPolicy Number: Repository [id number] Date:7669-28-41GY [id number] [place] [address]AY: 04/16/2018 Secondary ALEXIS J [place] Insurance:MEDICAIDPol DENNISDOB: [facility] icy Number: [id number] Hospital [id number] Repository Date:2018-04-16 04/16/2018 Tertiary NOT GIVENUNK [place] Insurance:SELF PAY [facility] Number: Effective Repository Date:2018-04-16 04/15/2018 ALEXIS J DENNISPOX Primary ALEXIS J [place] [address] Insurance:ANTHEM DENNISDOB: Community [address]Fgn: (330) MEDICARE SENIOR [id number] Hospital [id number] (HP) ADVANTAPolicy Number: Repository [id number] Date:9545-12-02UK [address]XHQ[address], [place] [address]ES: 04/15/2018 Secondary ALEXIS J [place] Insurance:MEDICAIDPol DENNISDOB: Community icy Number: [id number] Hospital [id number] Repository Date:2018-04-15 04/15/2018 Tertiary NOT GIVENUNK [place] Insurance:SELF PAY [facility] Number: Effective Repository Date:2018-04-15 02/03/2018 ALEXIS J [id number] Primary ALEXIS J [place] [address], Insurance:ANTHEM DENNISDOB: Community [place] [address]Byt: (330) MEDICARE [facility] [id number] Hospital [id number] (HP) ADVANTAPolicy Number: Repository [id number] Date:4659-31-60EQ [address], [place] [address]MA: 02/03/2018 Secondary ALEXIS J [place] Insurance:MEDICAIDPol DENNISDOB: Community icy Number: [id number] Hospital [id number] Repository Date:2018-02-03 02/03/2018 Tertiary NOT GIVENUNK [place] Insurance:SELF PAY [facility] Number: Effective Repository Date:2018-02-03 01/18/2018 ALEXIS J [id number] Primary ALEXIS J [place], Insurance:ANTHEM DENNISDOB: [facility] [place] [address]Nxd: (869) MEDICARE [facility] [id number] Hospital [phone] (HP) ADVANTAPolicy Number: Repository [id number] Date:7635-79-35[address], [place] [address]GI: 01/18/2018 Secondary ALEXIS J [place] Insurance:MEDICAIDPol DENNISDOB: Community icy Number: [id number] Hospital [id number] Repository Date:2018-01-05 01/18/2018 Tertiary NOT GIVENUNK Amanda Insurance:SELF PAY [facility] Number: Effective Repository Date:2018-01-05 01/17/2018 ALEXIS Yvan [id number] Primary ALEXIS J Amanda [place], Insurance:ANTHEM DENNISDOB: [facility] [place] [address]Pde: (330) MEDICARE SENIOR [id number] Hospital [phone] (HP) ADVANTAPolicy Number: Repository [id number] Date:9046-26-70BE [address], [place] [address]RV: 01/17/2018 Secondary ALEXIS J Amanda Insurance:MEDICAIDPol DENNISDOB: Community icy Number: [id number] Hospital [id number] Repository Date:2017-11-25 01/17/2018 Tertiary NOT GIVENUNK Amanda Insurance:SELF PAY [facility] Number: Effective Repository Date:2017-12-20 01/08/2018 ALEXIS J [id number] Primary ALEXIS J [place], Insurance:ANTHEM DENNISDOB: [facility] [place] [address]Liu: (330) MEDICARE SENIOR [id number] Hospital [phone] () ADVANTAPolicy Number: Repository [id number] Date:6425-45-07GW [address], [place] [address]PO: 01/08/2018 Secondary ALEXIS J [place] Insurance:MEDICAIDPol DENNISDOB: [facility] icy Number: [id number] Hospital [id number] Repository Date:2018-01-08 01/08/2018 Tertiary NOT GIVENUNK [place] Insurance:SELF PAY [facility] Number: Effective Repository Date:2018-01-08 01/08/2018 ALEXIS J [id number] Primary ALEXIS J Amanda [place], Insurance:ANTHEM DENNISDOB: [facility] [address]Vep: (330) MEDICARE SENIOR [id number] Hospital [phone] () ADVANTAPolicy Number: Repository [id number] Date:6468-76-28XH [address], [place] [address]YK: 01/08/2018 Secondary ALEXIS J [place] Insurance:MEDICAIDPol DENNISDOB: [facility] icy Number: [id number] Hospital [id number] Repository Date:2017-12-29 01/08/2018 Tertiary NOT GIVENUNK Amanda Insurance:SELF PAY [facility] Number: Effective Repository Date:2018-01-08 12/31/2017 ALEXIS J [id number] Primary ALEXIS J Amanda [place], Insurance:ANTHEM DENNISDOB: [facility] [place] [address]Hxm: (330) MEDICARE SENIOR [id number] Hospital [phone] () ADVANTAPolicy Number: Repository [id number] Date:2780-93-75SL [address], [place] [address]GC: 12/31/2017 Secondary ALEXIS J [place] Insurance:MEDICAIDPol DENNISDOB: [facility] icy Number: [id number] Hospital [id number] Repository Date:2017-12-31 12/31/2017 Tertiary NOT GIVENUNK Amanda Insurance:SELF PAY [facility] Number: Effective Repository Date:2017-12-31 12/29/2017 ALEXIS J [id number] Primary ALEXIS J Amanda [place], Insurance:ANTHEM DENNISDOB: [facility] [place] [address]Txn: (330) MEDICARE SENIOR [id number] Hospital [id number] () ADVANTAPolicy Number: Repository [id number] Date:9984-13-75YF [address] [place] [address]JV: 12/29/2017 Secondary ALEXIS J Amanda Insurance:MEDICAIDPol DENNISDOB: [facility] icy Number: [id number] Hospital [id number] Repository Date:2017-12-24 12/29/2017 Tertiary NOT GIVENUNK Amanda Insurance:SELF PAY [facility] Number: Effective Repository Date:2017-12-24 12/29/2017 ALEXIS J [id number] Primary ALEXIS J [place], Insurance:ANTHEM DENNISDOB: [facility] [place] [address]Ecz: (330) MEDICARE SENIOR [id number] Hospital [id number] () ADVANTAPolicy Number: Repository [id number] Date:4732-14-82IQ [address] [place] [address]SX: 12/29/2017 Secondary ALEXIS J Amanda Insurance:MEDICAIDPol DENNISDOB: [facility] icy Number: [id number] Hospital [id number] Repository Date:2017-12-17 12/29/2017 Tertiary NOT GIVENUNK Amanda Insurance:SELF PAY [facility] Number: Effective Repository Date:2017-12-17 12/29/2017 ALEXIS J [id number] Primary ALEXIS J [place], Insurance:ANTHEM DENNISDOB: [facility] [place] [address]Ueu: (330) MEDICARE SENIOR [id number] Hospital [phone] (HP) ADVANTAPolicy Number: Repository [id number] Date:5218-88-96OE [address], [place] [address]UN: 12/29/2017 Secondary ALEXIS J [place] Insurance:MEDICAIDPol DENNISDOB: Community icy Number: [id number] Hospital [id number] Repository Date:2017-12-17 12/29/2017 Tertiary NOT GIVENUNK [place] Insurance:SELF PAY [facility] Number: Effective Repository Date:2017-12-29 12/21/2017 ALEXIS J [id number] Primary ALEXIS J Amanda [facility], Insurance:ANTHEM DENNISDOB: [facility] [place] [address]Bev: (330) MEDICARE SENIOR [id number] Hospital [phone] () ADVANTAPolicy Number: Repository [id number] Date:2167-12-09FO [address], [place] [address]XK: 12/21/2017 Secondary ALEXIS J [place] Insurance:MEDICAIDPol DENNISDOB: Community icy Number: [id number] Hospital [id number] Repository Date:2017-12-17 12/21/2017 Tertiary NOT GIVENUNK [place] Insurance:SELF PAY [facility] Number: Effective Repository Date:2017-12-17 12/16/2017 ALEXIS J DENNISPO Primary ALEXIS J Montgomery [address] [place] [address], [place]:ANTHEM DENNISDOB: [facility] [address]Kpu: (330) MEDICARE SENIOR [id number] Hospital [phone] () ADVANTAPolicy Number: Repository [id number] Date:1507-01-64KR [address] [address]GN: 12/16/2017 Secondary ALEXIS J [place] Insurance:MEDICAIDPol DENNISDOB: Community icy Number: [id number] Hospital [id number] Repository Date:2017-12-16 12/16/2017 Tertiary ALEXIS Patel Insurance:MEDICARE DENNISDOB: Community PART A BPolicy [id number] Hospital Number: Repository [id number] Date:2017-12-16 12/16/2017 Tertiary NOT GIVENUNK Amanda Insurance:SELF PAY [facility] Number: Effective Repository Date:2017-12-16
== END 2018-10-13 15:13 | disposition home or self-care (01) ==
LOC: SDC 10:54 → AC 11:01
PROVIDERS: Family Provider Family Medicine; PCP Family Medicine; Referring Provider Obstetrics & Gynecology; Visit Provider Obstetrics & Gynecology
PROC: 0UDB8ZZ Extraction of Endometrium, Via Natural or Artificial Opening Endoscopic (ICD-10-PCS; CPT 58558; principal; 2018-10-13 12:15)
DX: N85.01 Benign endometrial hyperplasia (principal); N72 Inflammatory disease of cervix uteri; D64.9 Anemia, unspecified; E66.01 Morbid (severe) obesity due to excess calories; Z68.43 Body mass index [BMI] 50.0-59.9, adult; Z87.891 Personal history of nicotine dependence
CPT/HCPCS: 00952; 58558; 36415; 85025; 86850; 86900; 88305; J7120; J2405

== ENCOUNTER → 2018-12-07 09:13 | Outpatient (CLI) | payer MEDICARE, MEDICAID, SELFPAY ==
[2018-11-02 09:24] VITALS: BMI 58.4
[2018-12-07 10:17] LABS: Color, Urine Yellow (Yellow); Glucose, Dipstick Normal (Normal); Ketone-Dipstick Negative (Negative); Leukocyte Esterase-Dipstick 100 /ul (Negative); Nitrite-Dipstick Negative (Negative); Occult Blood-Urine 10 /ul (Negative); Protein-Dipstick Negative (Negative); Urine Bilirubin Dipstick Negative (Negative); Urine Clarity Sl. Cloudy (Clear); Urine Urobilinogen Normal (Normal)
[2018-12-07 10:24] LABS: Bacteria 2+ /hpf (None Seen); Red Blood Cells-Urine 0-5 SEEN /hpf (0-5); Squamous Epithelial Cells - UA 5-10 SEEN /hpf (5-10); White Blood Cells 0-5 SEEN /hpf (0-5)
[2018-12-07 10:25] LABS: Mucous, Urine 1+ /hpf (<or=2+)
[2018-12-07 10:31] LABS: Absolute Neutrophil Count 5.3 X10^3/uL (2.0-7.7); Basophil# 0.03 X10^3/uL; Basophil% 0.4 % (0-1); Eosinophil# 0.22 X10^3/uL; Eosinophils% 2.8 % (0-5); Hematocrit 40.8 % (37-47); Hemoglobin 12.4 g/dl (12.0-15.0); Lymphocyte % 21.5 % (19-41); Mean Corp Hgb Conc 30.4 g/gl (32-36); Mean Corpuscular Hgb 28.6 pg (27.0-32.0); Mean Corpuscular Volume 94.2 fL (81-99); Mean Platelet Vol. 10.7 fl (6.2-12.0); Monocyte# 0.61 X10^3/uL; Monocyte% 7.7 % (0-10); Neutrophil # 5.32 X10^3/uL (2.7-7.7); Neutrophil % 67.3 % (47-70); Platelet Count 300 K/mm3 (150-450); RBC Distribution Width CV 14.4 % (11.6-14.6); RBC Distribution Width SD 47.4 fl (35.1-43.9); Red Blood Count 4.33 M/mm3 (4.2-5.4); White Blood Count 7.9 K/mm3 (4.4-11.0)
[2018-12-07 10:35] LABS: POSITIVE COUNT NO; POSITIVE DIFFERENTIAL NO; POSITIVE MORPHOLOGY NO
[2018-12-07 11:00] LABS: Vitamin D,25 Hydroxy 15.6 ng/mL (29.95-100.01)
[2018-12-07 11:02] LABS: ALB/GLOB Ratio 0.8 RATIO (0.9-2.4); AST(SGOT) 13 U/L (15-37); Alanine Aminotransfer ALT/SGPT 14 U/L (13-56); Albumin, Serum 3.4 g/dL (3.2-5.0); Alkaline Phosphatase 100 U/L (45-117); Anion Gap 8 (5-15); BUN 18 mg/dL (7-18); BUN/Creat Ratio 17.5 RATIO (10-20); Calcium,Total 8.3 mg/dL (8.5-10.1); Chloride 108 mmol/L (98-107); Creatinine, Serum 1.03 mg/dL (0.55-1.02); EST Glomerular Filtration Rate 57 mL/min (>60); Est Glom Filt Rate - Afr Amer 69 mL/min (>60); Glucose 72 mg/dL (74-106); Potassium 4.6 mmol/L (3.5-5.1); Protein, Total 7.4 g/dL (6.4-8.2); Sodium Level 141 mmol/L (136-145)
== END ==
PROVIDERS: Family Provider Family Medicine; PCP Family Medicine; Referring Provider Family Medicine; Visit Provider Family Medicine
DX: I12.9 Hypertensive chronic kidney disease with stage 1 through stage 4 chronic kidney disease, or unspecified chronic kidney disease (principal); N18.3 Chronic kidney disease, stage 3 (moderate)
CPT/HCPCS: 36415; 80053; 81001; 82306; 85025

== ENCOUNTER → 2019-01-16 | Outpatient (CLI) | payer MEDICARE, MEDICAID, SELFPAY ==
[2018-11-02 09:24] VITALS: BMI 58.4
--- NOTE | 2019-01-16 10:16 | US_ITS ---
STUDY: THYROID ULTRASOUND REASON FOR EXAM: Female, 63 years old. Nodule in right. History of biopsy 2018. TECHNIQUE: Ultrasound evaluation of the thyroid was performed with real-time and static kilgore-scale imaging. COMPARISON: December 21, 2017. FINDINGS: RIGHT LOBE: The right lobe of the thyroid gland measures 4.1 x 2.0 x 1.5 cm. There is a homogeneous echotexture. Within the superficial substance of the right thyroid lower lobe there is a 1.1 x 1.2 x 0.7 cm isoechoic nodule with partial hypoechoic rim. This finding demonstrates mostly peripheral but some internal vascularity. This finding previously measured 1.2 x 1.1 x 0.7 cm the morphology position and echotexture appear stable. There is an additional 3 mm maximum dimension hypoechoic to isoechoic focus in the mid to deep substance of the right thyroid lobe. LEFT LOBE: The left lobe of the thyroid gland measures 4.6 x 2.1 x 1.6 cm. There is a homogeneous echotexture. There is a 0.4 x 0.4 x 0.4 solid, isoechoic nodule with hypoechoic rim within the left thyroid lobe. This finding is not identified on the comparison exam. ISTHMUS: The isthmus measures 4.0 . The superficial right thyroid lower pole nodule appears stable. US/Thyroid IMPRESSION: The superficial right thyroid lower lobe nodule appears stable. The additional 3 mm maximum dimension hypoechoic to isoechoic focus in the mid to deep substance of the right thyroid lobe appears stable. New, 4 mm maximum dimension nonspecific left thyroid nodule. Please note that the thyroid nodules identified on sonography are nonspecific. Consider FNA biopsy as may be indicated by clinical exam, clinical history and laboratory thyroid function tests. Electronically Signed: Fredi Hutson MD at 16:52 EDT , Service support ,
== END | disposition home or self-care (01) ==
PROVIDERS: Family Provider Family Medicine; PCP Family Medicine; Referring Provider Family Medicine; Visit Provider Family Medicine
DX: E04.1 Nontoxic single thyroid nodule (principal)
CPT/HCPCS: 76536

== ENCOUNTER → 2019-04-03 | Outpatient (CLI) | payer MEDICARE, MEDICAID, SELFPAY ==
[2018-11-02 09:24] VITALS: BMI 58.4
[2019-04-03 15:46] LABS: Vitamin D,25 Hydroxy 30.2 ng/mL (29.95-100.01)
[2019-04-03 15:47] LABS: ALB/GLOB Ratio 0.6 RATIO (0.9-2.4); AST(SGOT) 14 U/L (15-37); Alanine Aminotransfer ALT/SGPT 16 U/L (13-56); Albumin, Serum 3.1 g/dL (3.2-5.0); Alkaline Phosphatase 95 U/L (45-117); Anion Gap 6 (5-15); BUN 20 mg/dL (7-18); BUN/Creat Ratio 17.1 RATIO (10-20); Calcium,Total 8.8 mg/dL (8.5-10.1); Chloride 106 mmol/L (98-107); Creatinine, Serum 1.17 mg/dL (0.55-1.02); EST Glomerular Filtration Rate 49 mL/min (>60); Est Glom Filt Rate - Afr Amer 60 mL/min (>60); Globulin 4.8 g/dL (2.2-4.2); Glucose 94 mg/dL (74-106); Protein, Total 7.9 g/dL (6.4-8.2); Sodium Level 140 mmol/L (136-145)
== END | disposition home or self-care (01) ==
LOC: MFPLAB 12:02
PROVIDERS: Family Provider Family Medicine; PCP Family Medicine; Visit Provider Family Medicine
DX: E55.9 Vitamin D deficiency, unspecified (principal); I10 Essential (primary) hypertension
CPT/HCPCS: 36415; 80053; 82306

== ENCOUNTER 2019-06-29 10:50 | Day surgery (SDC) | payer MEDICARE, MEDICAID, SELFPAY ==
[2019-06-06 10:30] VITALS: BMI 58.4
--- NOTE | 2019-06-22 04:52 | HP.PCM_ITS ---
- Problem List (1) Multiple thyroid nodules Status: Acute (2) Postmenopausal bleeding Status: Acute Comment: cytotec prep plan d and c hysteroscopy (3) Simple endometrial hyperplasia without atypia Status: Acute Comment: megace x 6 months, repeat biopsy in 6 and 12 months (4) Anxiety Status: Chronic (5) Hypertension Status: Chronic History and Physical Date of Admission: 06/29/19 Intake Vital Signs 06/06/19 Body Mass Index (BMI) 58.4 06/06/19 Height 5 ft 6 in 06/06/19 Weight: 403 lb 6 oz 06/06/19 Body Mass Index (BMI) 65.1 06/06/19 Blood Pressure 134/100 H Intake Visit Reasons: 6 month follow up per Chief Complaint: 6m follow up per EMB Probation And Parole Officer Required: No Is patient in pain?: Yes Allergies doxycycline Allergy (Verified 06/06/19 10:29) Rash duloxetine [From Cymbalta] Adverse Reaction (Severe, Verified 06/06/19 10:29) rapid HR, light headed, weak Medications megestrol 40 mg tablet 40 mg PO ONCE #30 tab 11/02/18 [Rx Confirmed 06/06/19] Is last menstrual period known: No Post menopausal: Yes Patient : No : No [facility] Medical History (Updated 06/06/19 @ 10:29 by Meghana Lopes) Multiple thyroid nodules (Acute) Community acquired bacterial pneumonia (Acute) Hypoxia (Acute) Cellulitis (Acute) Hypertension (Chronic) Anxiety (Chronic) Morbid obesity with BMI of 60.0-69.9, adult (Acute) Surgical History H/O carpal tunnel repair (Acute) Status post hysteroscopy (Acute) Status post laparoscopic cholecystectomy (Acute) Family History Mother Asthma Diabetes Hypertension Sister Thyroid disorder Social History (Updated 06/07/19 @ 05:30 by Krissy Kuo MD) Smoking Status: Former smoker alcohol intake: never substance use type: does not use caffeine: Yes what type of physical activity do you participate in: walking seatbelt use: always do you feel safe at home: Yes additional social history: Retired [employer] 6 month follow up per SM: Details: ALEXIS HASKINS is a 63 year old who presents for fu of endometrial hyperplasia. she is on megace for treament and neesd endometrial sampling. she is still having some bleeding, and has had weight gain. she denies any chest pain or SOB. Pregancy History 2 Elective abortions Hx Para 2 Spontaneous abortions Hx # Term Pregnancies 2 Ectopic pregnancies Hx # Pregnancies Multiple births # of living children 2 Past Pregnancies Del. Date Name GA/Weeks Outcome Route Bth Weight Gen Labor Lgth Anesthesia [facility] Provider FOB Unknown Patt 1978 Unknown Prakash 1981 ROS Cardio Card: Denies chest pain Resp Resp: Denies cough or dyspnea GI GI: Reports as per HPI; denies abdominal pain, constipation, nausea or vomiting : Denies nipple discharge Skin Skin/Breast: Denies change in hair, breast lump, breast pain, breast skin changes or nipple discharge Exam Const Nutritional Appearance: obese morbidy Orientation: alert HENMT Head: normal to inspection, normocephalic Neck Neck: normal visual inspection, trachea midline Thyroid: thyroid normal Resp Effort & Inspection: normal respiratory effort General: bladder normal to palpation External Female Exam: normal external appearance, normal appearance of the urethra Urethra: normal appearance of the urethra, normal palpation, no discharge Speculum Exam - Cervix: normal appearance of the cervix, nontender Bimanual Exam- Vagina & Uterus: bladder normal to palpation, No cervical tenderness Other: limited due to body habitus Skin Other: chronic venous skin changes and edema Office Procedures Endometrial Biopsy Endometrial Biopsy Details: Cervix prepped with betadine and pipelle inserted into uterus without complication. Specimen obtained and sent to lab for analysis. All instruments removed from vagina without complications. Excellent hemostasis noted. Assessment & Plan Problems 1. Simple endometrial hyperplasia without atypia N85.01 megace x 6 months, repeat biopsy in 6 and 12 months 2. Postmenopausal bleeding N95.0 cytotec prep plan d and c hysteroscopy Plan discused options with patient, unable to do endometrial sampling recommend d and c hysteroscopy with possible iud insertion if still hyperplastic Orders Orders: Endometrial Biopsy 06/06/19 Coding Level of Care Code Off vis,est,level 3 Diagnoses Simple endometrial hyperplasia without atypia N85.01 Postmenopausal bleeding N95.0
[2019-06-29] VITALS (7 sets, daily range): BP systolic 117–147; BP diastolic 77–89; PULSE 60–87; RESP 16; TEMP 36.4–37.1; O2SAT 96–100; BMI 64.3
--- NOTE | 2019-06-29 | EMB_PTH ---
PATIENT: ALEXIS HASKINS LOC: [facility] U#:[id number] AGE/SX: 63/F ROOM: RE06/29/[address]: Dr. Krissy Kuo MD : [id number] BED: DIS: 06/29/2019 SPEC #: [id number] RECD: 06/29/19 16:27 STATUS: KATALINA KIAH #: [id number] ARMANI: 06/29/19 00:[address]: Krissy Kuo DEPT: SURGICAL PATHOLOGY RECD BY: Prakash Mendes ENTERED: 06/30/19 09:15 SP TYPE: ENDOM BX/C TAMAR DR: Dr. Hieu Meyer MD Tissues: Endometrium, NOS Procedures: Surgery Specimen Level IV HEADER OPERATION: Hysteroscopy, dilation and curettage PRE-OP DIAGNOSIS: Simple endometrial hyperplasia without atypia, postmenopausal bleeding TISSUE SUBMITTED: Endometrial curettings MICROSCOPIC DIAGNOSIS Endometrium, curettings: Scant strips of benign superficial endometrium with chronic endometritis. Strips of benign superficial squamous mucosa and endocervical mucosa. Focal benign stromal hyperplasia. AM:cecile 07/03/19 COMMENT Case has been reviewed in consultation with Dr. Delatorre who concurs with the above diagnosis. IDC:LISSET MICROSCOPIC DESCRIPTION Slides are reviewed. GROSS DESCRIPTION Received in fixative is one container labeled with the patient's name and designated endometrial curettings. The specimen consists of multiple fragments of hemorrhagic soft tissue that in aggregate measure 5 x 3 x 0.2 cm. The entire specimen is submitted in two cassettes. / SJ:cecile 06/30/19 TC:3 CPT: 30855
[2019-06-29] MEDS: Lactated Ringers 1,000 ML 100 ML IV (11:28)
--- NOTE | 2019-06-29 13:09 | PCM.OPRPT ---
Problem List (1) Multiple thyroid nodules Status: Acute (2) Postmenopausal bleeding Status: Acute Comment: cytotec prep plan d and c hysteroscopy (3) Simple endometrial hyperplasia without atypia Status: Acute Comment: megace x 6 months, repeat biopsy in 6 and 12 months (4) Anxiety Status: Chronic (5) Hypertension Status: Chronic Report of Operation Date of Procedure: 06/29/19 Pre-Operative Diagnosis: postmenopausal bleeding Post-Operative Diagnosis: same Surgery/Procedure Performed:: d and c hysteroscopy Description of Surgical Findings:: thickened lining Type of Anesthesia:: Local MAC Special Medications: none Specimen's removed: emc Drains: none Estimated Blood Loss (mL): 10 Fluids Replaced: crystalloid Description of Procedure: Patient was prepped and draped in a normal sterile fashion under MAC anesthesia. A weighted speculum was placed in the vagina and the anterior lip of the cervix was grasped with a single-tooth tenaculum. A paracervical block was placed with 1% lidocaine. Cervix was progressively dilated to allow passage of a 5 mm hysteroscope. The lining was fully visualized and noted to have thickened endometrial lining. Uterine sounded to 10 cm. Curettage was performed and amount of tissue was removed, sent to pathology. All instruments were removed from the vagina and excellent hemostasis was noted. Patient was awoken and taken to recovery in stable condition. Grafts/Implants Used: none - Complications none - Admit VTE Documentation VTE Present on Admission: No VTE Mechan Device Prophylaxis: SCD's Multi Select Codes - Urinary/Genital Urinary/Genital CPT Codes: 42977 Hysteroscopy, diagnostic
--- NOTE | 2019-06-29 15:42 | DCINST_ITS ---
Discharge Diet: No Restrictions Discharge Activity: Return to Normal Activity, May Shower, May Take a Tub Bath Allergies/Adverse Reactions: Allergies doxycycline Allergy (Verified 06/22/19 13:39) Rash duloxetine [From Cymbalta] Adverse Reaction (Severe, Verified 06/22/19 13:39) rapid HR, light headed, weak Medications to take at Discharge megestrol 40 mg tablet 40 mg PO ONCE #30 tab 11/02/18 Albuterol Inhaler [Ventolin Hfa (SP)] 1 - 2 puff INHALATION Q6H PRN PRN 06/22/19 Ergocalciferol [Vitamin D] 50,000 unit PO Q7D 06/22/19 Fluoxetine [Prozac] 20 mg PO DAILY 06/22/19 Primary Care Physician: Hieu Meyer MD [Primary Care Provider] - Test Results: Test results from this visit will be discussed in further detail at your follow- up appointment, if applicable. Please Follow Up With: Krissy Kuo MD - [phone]
== END 2019-06-29 16:56 | disposition home or self-care (01) ==
LOC: SDC 10:51 → AC 10:52
PROVIDERS: Family Provider Family Medicine; PCP Family Medicine; Referring Provider Obstetrics & Gynecology; Visit Provider Obstetrics & Gynecology
PROC: 0UDB8ZZ Extraction of Endometrium, Via Natural or Artificial Opening Endoscopic (ICD-10-PCS; CPT 58558; principal; 2019-06-29 12:20)
DX: N85.01 Benign endometrial hyperplasia (principal); N71.1 Chronic inflammatory disease of uterus; F41.9 Anxiety disorder, unspecified; I10 Essential (primary) hypertension; E04.1 Nontoxic single thyroid nodule; E66.01 Morbid (severe) obesity due to excess calories; Z68.44 Body mass index [BMI] 60.0-69.9, adult; F32.9 Major depressive disorder, single episode, unspecified; J45.909 Unspecified asthma, uncomplicated; Z87.891 Personal history of nicotine dependence; Z79.51 Long term (current) use of inhaled steroids; Z79.899 Other long term (current) drug therapy
CPT/HCPCS: 58558; 88305; J7120; J2405

== ENCOUNTER → 2019-08-01 | Outpatient (CLI) | payer MEDICARE, MEDICAID, SELFPAY ==
[2019-06-29 11:10] VITALS: BMI 64.3
[2019-08-01 12:37] LABS: Absolute Lymphocyte Count 1.84 X10^3/uL (0.83-4.51); Absolute Neutrophil Count 6.8 X10^3/uL (2.0-7.7); Basophil# 0.08 X10^3/uL; Basophil% 0.8 % (0-1); Hematocrit 39.5 % (37-47); Lymphocyte # 1.84 X10^3/ul (4.0); Lymphocyte % 18.6 % (19-41); Mean Corp Hgb Conc 30.4 g/dL (32-36); Mean Corpuscular Hgb 29.1 pg (27.0-32.0); Mean Corpuscular Volume 95.6 fL (81-99); Mean Platelet Vol. 10.6 fl (6.2-12.0); Monocyte# 0.76 X10^3/uL; Monocyte% 7.7 % (0-10); NRBC Flagged by Analyzer 0 % (0-5); Neutrophil # 6.76 X10^3/uL (2.7-7.7); Neutrophil % 68.5 % (47-70); Platelet Count 271 K/mm3 (150-450); RBC Distribution Width CV 13.7 % (11.6-14.6); Red Blood Count 4.13 M/mm3 (4.2-5.4); White Blood Count 9.9 K/mm3 (4.4-11.0)
[2019-08-01 13:08] LABS: Protein:Creat Ratio 194 mg/g CRE (0-200)
[2019-08-01 13:14] LABS: ALB/GLOB Ratio 0.7 RATIO (0.9-2.4); AST(SGOT) 13 U/L (15-37); Alanine Aminotransfer ALT/SGPT 17 U/L (13-56); Albumin, Serum 3.2 g/dL (3.2-5.0); Alkaline Phosphatase 96 U/L (45-117); Anion Gap 6 (5-15); BUN 17 mg/dL (7-18); BUN/Creat Ratio 16.2 RATIO (10-20); Calcium,Total 8.7 mg/dL (8.5-10.1); Chloride 105 mmol/L (98-107); Creatinine, Serum 1.05 mg/dL (0.55-1.02); EST Glomerular Filtration Rate 56 mL/min (>60); Est Glom Filt Rate - Afr Amer 68 mL/min (>60); Globulin 4.8 g/dL (2.2-4.2); Glucose 85 mg/dL (74-106); Potassium 3.8 mmol/L (3.5-5.1); Sodium Level 138 mmol/L (136-145)
== END | disposition home or self-care (01) ==
LOC: MFPLAB 10:36
PROVIDERS: Family Provider Family Medicine; PCP Family Medicine; Referring Provider Family Medicine; Visit Provider Family Medicine
DX: I10 Essential (primary) hypertension (principal); E55.9 Vitamin D deficiency, unspecified
CPT/HCPCS: 36415; 80053; 82306; 82570; 84156; 85025

== ENCOUNTER 2019-08-29 09:53 | Outpatient (RCR) | payer MEDICARE, SELFPAY ==
[2019-06-29 11:10] VITALS: BMI 64.3
== END 2019-08-29 23:59 | disposition home or self-care (01) ==
LOC: NS 09:53
PROVIDERS: Family Provider Family Medicine; PCP Family Medicine; Visit Provider Family Medicine
DX: Z71.3 Dietary counseling and surveillance (principal); E66.01 Morbid (severe) obesity due to excess calories; Z68.44 Body mass index [BMI] 60.0-69.9, adult; N18.3 Chronic kidney disease, stage 3 (moderate)
CPT/HCPCS: 97802

== ENCOUNTER → 2019-11-29 09:35 | Outpatient (CLI) | payer MEDICARE, MEDICAID, SELFPAY ==
[2019-06-29 11:10] VITALS: BMI 64.3
[2019-11-29 10:06] LABS: Absolute Lymphocyte Count 1.42 X10^3/uL (0.83-4.51); Absolute Neutrophil Count 6.6 X10^3/uL (2.0-7.7); Basophil# 0.04 X10^3/uL; Basophil% 0.4 % (0-1); Eosinophil# 0.42 X10^3/uL; Eosinophils% 4.6 % (0-5); Hematocrit 44.3 % (37-47); Hemoglobin 12.9 g/dL (12.0-15.0); Lymphocyte # 1.42 X10^3/ul (4.0); Lymphocyte % 15.5 % (19-41); Mean Corp Hgb Conc 29.1 g/dL (32-36); Mean Corpuscular Hgb 26.8 pg (27.0-32.0); Mean Corpuscular Volume 91.9 fL (81-99); Mean Platelet Vol. 10.4 fl (6.2-12.0); Monocyte# 0.64 X10^3/uL; NRBC Flagged by Analyzer 0 % (0-5); Neutrophil % 72.1 % (47-70); Platelet Count 278 K/mm3 (150-450); RBC Distribution Width CV 14.6 % (11.6-14.6); RBC Distribution Width SD 48.8 fl (35.1-43.9); Red Blood Count 4.82 M/mm3 (4.2-5.4); White Blood Count 9.2 K/mm3 (4.4-11.0)
[2019-11-29 10:38] LABS: ALB/GLOB Ratio 0.6 RATIO (0.9-2.4); AST(SGOT) 15 U/L (15-37); Alanine Aminotransfer ALT/SGPT 19 U/L (13-56); Alkaline Phosphatase 117 U/L (45-117); Anion Gap 5 (5-15); BUN 17 mg/dL (7-18); BUN/Creat Ratio 15.3 RATIO (10-20); Calcium,Total 8.9 mg/dL (8.5-10.1); Chloride 107 mmol/L (98-107); Creatinine, Serum 1.11 mg/dL (0.55-1.02); EST Glomerular Filtration Rate 52 mL/min (>60); Est Glom Filt Rate - Afr Amer 63 mL/min (>60); Globulin 5.2 g/dL (2.2-4.2); Glucose 85 mg/dL (74-106); Phosphorus 3.8 mg/dL (2.5-4.9); Potassium 4.2 mmol/L (3.5-5.1); Protein, Total 8.2 g/dL (6.4-8.2); Sodium Level 141 mmol/L (136-145)
[2019-11-29 10:50] LABS: Vitamin D,25 Hydroxy 33.6 ng/mL
[2019-11-29 11:36] LABS: PTHIN 131.7 pg/mL (18.4-80.1)
== END ==
PROVIDERS: PCP Family Medicine; Referring Provider Family Medicine; Visit Provider Family Medicine
DX: I12.9 Hypertensive chronic kidney disease with stage 1 through stage 4 chronic kidney disease, or unspecified chronic kidney disease (principal); N18.3 Chronic kidney disease, stage 3 (moderate); E55.9 Vitamin D deficiency, unspecified
CPT/HCPCS: 36415; 80053; 82306; 83970; 84100; 85025

== ENCOUNTER 2020-05-24 14:44 | Emergency (ER) | payer MEDICARE, MEDICAID, SELFPAY ==
[2019-06-29 11:10] VITALS: BMI 64.3
[2020-05-24 14:49] VITALS: BP 147/89; PULSE 85; RESP 18; TEMP 36.7; O2SAT 96; BMI 61.3
[2020-05-24 14:56] LABS: Bedside Glucose 98 mg/dL (70-110)
[2020-05-24 15:00] VITALS: BMI 64.3
--- NOTE | 2020-05-24 15:07 | CT_ITS ---
We are attempting to reach an attending provider to discuss findings. An addendum with communication details will be sent when the communication is complete. STUDY: CT BRAIN WITHOUT CONTRAST REASON FOR EXAM: Female, 64 years old. HEADACHE RADIATION DOSAGE (If Supplied By Facility): CTDIvol = ( 60.81 ) mGy, DLP = ( 1021.47 ) mGycm TECHNIQUE: Transaxial CT imaging of the brain was performed without administration of intravenous contrast material. Individualized dose optimization techniques were used for this CT. COMPARISON: No relevant priors. FINDINGS: Normal soft tissue structures. Normal calvarium. There is an acute left cerebellar hemorrhage measuring 1.6 x 1.3 x 1 cm. No mass effect or midline shift. No additional hemorrhage. No acute territorial infarct. Chronic lacunar infarct in the right caudate nucleus. Chronic left basal ganglia lacunar infarct. There is a 2.3 x 1.5 cm densely calcified extra-axial mass in the right parietal region, most consistent with meningioma. Normal size ventricles and extra-axial spaces for the patient''s age. There are areas of decreased attenuation within the white matter tracts of the supratentorial brain, consistent with microvascular disease changes. Normal visualized paranasal sinuses. CT/Brain/Head without Contrast IMPRESSION: 1. Acute left cerebellar hemorrhage. 2. Chronic right caudate and left basal ganglia lacunar infarcts. 3. Right parietal extra-axial lesion consistent with meningioma. Electronically Signed: Kim Milsl MD at 16:53 EDT Tel , Service support ,
--- NOTE | 2020-05-24 15:12 | EKG12_ITS ---
Test Reason : HEADACHE Blood Pressure : / mmHG Vent. Rate : 078 BPM Atrial Rate : 078 BPM P-R Int : 128 ms QRS Dur : 100 ms QT Int : 442 ms P-R-T Axes : 009 -02 026 degrees QTc Int : 503 ms Sinus rhythm with occasional Premature ventricular complexes Possible Inferior infarct , age undetermined Abnormal ECG Confirmed by LUCA BAUMAN, ASHVIN ([id number]), editorial clerk SOREN LAWSON ([id number]) on 05/28/2020 7:53:46 AM Referred By: FAIZA Confirmed By:ASHVIN SEGOVIA MD
[2020-05-24 15:35] LABS: Absolute Lymphocyte Count 1.61 X10^3/uL (0.83-4.51); Absolute Neutrophil Count 6.8 X10^3/uL (2.0-7.7); Basophil# 0.05 X10^3/uL; Basophil% 0.5 % (0-1); Eosinophil# 0.57 X10^3/uL; Eosinophils% 5.8 % (0-5); Hematocrit 40.9 % (37-47); Hemoglobin 12.5 g/dL (12.0-15.0); Lymphocyte # 1.61 X10^3/ul (4.0); Lymphocyte % 16.3 % (19-41); Mean Corp Hgb Conc 30.6 g/dL (32-36); Mean Corpuscular Hgb 28.9 pg (27.0-32.0); Mean Corpuscular Volume 94.5 fL (81-99); Mean Platelet Vol. 10.6 fl (6.2-12.0); Monocyte# 0.76 X10^3/uL; Monocyte% 7.7 % (0-10); NRBC Flagged by Analyzer 0 % (0-5); Neutrophil # 6.81 X10^3/uL (2.7-7.7); Neutrophil % 69.2 % (47-70); Platelet Count 255 K/mm3 (150-450); RBC Distribution Width CV 14.7 % (11.6-14.6); RBC Distribution Width SD 51.5 fl (35.1-43.9); Red Blood Count 4.33 M/mm3 (4.2-5.4); White Blood Count 9.9 K/mm3 (4.4-11.0)
[2020-05-24] MEDS: DiphenhydrAMINE 50 MG/ML Syringe 25 MG IV (15:35)
[2020-05-24] MEDS: Metoclopramide 10 MG/2 ML Vial IV (15:35)
[2020-05-24] MEDS: 0.9% Normal Saline 1,000 ML 999 ML IV (15:35)
--- NOTE | 2020-05-24 16:22 | ED.DCSUM_ITS ---
- ER Visit Summary Date of Service: 05/24/20 Chief Complaint: Headache History of Present Illness: The patient is a 64 F who presents with a headache that began today. Patient states her pain began while she was using the restroom today. Patient states it has been constant. Patient describes it as throbbing. Patient states she has had similar headaches in the past. Patient states her headache is generalized. Patient admits to nausea but denies any vomiting. Patient admits to photophobia. Patient denies any paresthesias or weakness. Patient denies any visual changes or scotoma. Physical Examination: Vital signs are stable. Patient is afebrile. Patient is in no acute distress. Oral mucosa is pink and moist. Neck is supple. Trachea is midline. There is no JVD noted. Heart was regular rate and rhythm. Lungs are clear and equal bilaterally. Abdomen is soft. Bowel sounds are normal. There is no tenderness. There is no rebound or guarding noted. Skin is warm dry. Cranial nerves II through XII are intact. There are no focal motor or sensory deficits noted. Extremities are intact. There is no calf tenderness or edema. Test Results: EKG shows a normal sinus rhythm with a rate of 78. There are occasional PVCs noted. There are no acute ST or T wave changes. CBC, basic metabolic profile, troponin were obtained were within normal limits. CT scan of the brain was obtained. There is a 1.6 x 1.3 x 1 cm left cerebellar hemorrhage. This was interpreted by the radiologist and reviewed by myself. Emergency Department Course and Treatment: Patient was given IV fluids, Reglan, and Benadryl. Patient states her headache was improving. Patient was advised of her findings. Patient requested to be transferred to [facility]. Case was discussed with Dr. Mcclain, hospitalist at [facility]. She requested that we reviewed the case with neurosurgery. Case was discussed with Dr. Daly. He agrees with transfer to [facility]. Patient will be transferred there to the service of Dr. Mcclain. Patient understood and was agreeable with the plan. All questions were answered. Disposition: Transfer to [facility] Impression: 1. Cerebellar hemorrhage This note was generated with [employer] software. It may contain incorrect words, spelling, and punctuation that were not noted in review of the chart prior to signing ED Disposition - Plan for ED Patient: Disposition: 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
[2020-05-24 16:43] LABS: Anion Gap 5 (5-15); BUN 13 mg/dL (7-18); BUN/Creat Ratio 12.5 RATIO (10-20); Calcium,Total 8.7 mg/dL (8.5-10.1); Chloride 105 mmol/L (98-107); Creatinine, Serum 1.04 mg/dL (0.55-1.02); EST Glomerular Filtration Rate 56 mL/min (>60); Est Glom Filt Rate - Afr Amer 68 mL/min (>60); Estimated Creatinine Clearance 49.81 ml/min; Glucose 94 mg/dL (74-106); Potassium 3.6 mmol/L (3.5-5.1); Sodium Level 141 mmol/L (136-145)
[2020-05-24 17:12] VITALS: BP 127/66; O2SAT 99
--- NOTE | 2020-05-24 18:09 | NURSING ---
ICU 10 [facility] REPORT [phone]
[2020-05-24 18:15] VITALS: BP 131/69; PULSE 75; RESP 17; O2SAT 95
--- NOTE | 2020-05-24 18:16 | NURSING ---
1807 ETA IS 90 MIN
--- NOTE | 2020-05-24 18:18 | ED.RN ---
attempted to call report, staff were unaware of transfer, stated they would have to call back. spoke with Lolis.
--- NOTE | 2020-05-24 18:53 | ED.RN ---
report called to osman
[2020-05-24 19:33] VITALS: BP 147/75; PULSE 75; RESP 16; O2SAT 92
== END 2020-05-24 20:11 | disposition short-term general hospital (02) ==
PROVIDERS: Emergency Provider Emergency Medicine; PCP Family Medicine
DX: I61.4 Nontraumatic intracerebral hemorrhage in cerebellum (principal); Z79.899 Other long term (current) drug therapy
CPT/HCPCS: 70450; 80048; 82962; 84484; 85025; 93005; 96361; 96374; 96375; 99285; J7030

== ENCOUNTER 2020-06-18 13:00 | Outpatient (RCR) | payer MEDICARE, MEDICAID, SELFPAY ==
--- NOTE | 2020-06-06 09:09 | HP.OTEVAL_ITS ---
Patient's Visit Information ALEXIS HASKINS is a 64 year old F, referred to Occupational Therapy by Dr. Hieu Meyer MD, with a diagnosis of CVA. Date of Evaluation: 06/06/20 Occupational Therapist: Meghann Hobbs, OTR/Vitor, CHT - Subjective This 64 year old female was seen for OT eval with dx of Cerebellar hemorrhage. Pt states she suffered her stroke about two weeks ago. pt states she was out with her daughter last wednesday and she started to have sharp shooting head pain, her eyes flet funny, and her balance was off. Once pt got to her dtrs car she knew she needed to go to the hospital. Following testing pt was sent to [facility]. pt states she has had mild head achs, pt states she has recovered and notices while reading she get more head achs. Pt states she lives with three granddaughters that are 17, 13, 9 and a great grandson that is 4 months old. pt states family helps with daily tasks. pt was driving prior too incident, and amb. with straight care. pt lives in two story apt. with a tub shower combo- pt is afraid to get into the bathtub and will sponge bath. pt reports she was sponge bathing prior to her CVA because it was difficult to get into the bathtub. - Objective pt amb with straight can with antalgic gait. - ROM ROM Comments: pt demo bilateral UE ROM WNL - Strength Ethanol Maintenance Mechanic: right 50# left 45# Lateral Pinch: right 14# left 10# Tripod Pinch: right 14# left 16# Strength Comments: pt demo a functional interior surface insulation worker strength and BUE MMT grossly 4+/5 - Sensation Sensation Comments: denies - Quick DASH-Disab of Arm,Shoulder& Hand Quick DASH Score: 4.5450 - Rehabilitation General Assessment: pt does not demo need for skilled OT services at this time. pt feels her symptoms of left arm weakness resolved within 48 hours of tx at [facility]. Therapist did rec'd extended tub bench to increase safety when pt takes a shower. pt is was sponge bathing prio to CVA and is currently at her PLOF with ADLs and IADLs. Pt would like to to regain strength in her LE to increase her balace and ambulation distance and physical therpay will address theses concerns. - Visit Plan TEXT: Thank you for the opportunity to evaluate your patient. For Medicare and Medicare HMO plans, please review the plan of care and approve it. It will need to be FAXED BACK to us at [phone] for Medicare purposes. Please let me know if there are questions or concerns regarding this plan of care. Physician Signature: Date:
--- NOTE | 2020-06-06 12:29 | HP.PTEVAL ---
Patient's Visit Information ALEXIS HASKINS is a 64 year old F referred to Physical Therapy by Dr. Hieu Meyer MD with a diagnosis of CVA. Date of Evaluation: 06/06/20 Physical Therapist: Mariela Whitaker DPT - Visit Plan Frequency: 3x /Week Duration: 4 Weeks Plan: Focus on LE and core strength/stabilization, balance and functional mobility. - Subjective May 25 cerebral hemorrhagic stroke- headed to ER quickly and they sent her to [facility]. She was there for a few days- double story home- she does the stairs for her full bathroom- she only comes up/down 1 x a day which is not new. Has 3 grandaughters (17, 13,9) and great grandson who is 4 months- she is the primary caregiver. Prior to the CVA she was walking with a cane community distance. No falls previous or since being home. Fully I prior to CVA- she is doing everything except for driving. She has pain in the knees but that is not new due to OA. Biggest concern is that her legs do not feel as strong as they did before the CVA. No N/T. Feels that she is getting back to normal slowly. Sleep: not disturbed. Has never had PT on her knees before- but has had injections which really help. PMHx:see ED notes. Does report a LANE that is just dull and naggy- but they said that may never go away - Objective Posture: FH, RS- pt can correct but is unable to maintain- she is obese. Gait: antalgic- uses a straight cane on the right side- poor heel/toe pattern- decreased george. Stairs: step to pattern with 2 HR- uses UE for propulsion and has poor control with descent- more sideways than forwards. HR/TR: able with no pain. SLS: unable but does weight shift bilaterally. Balance: see FGA listed below. ROM: WFL in all planes. Sit to Stand: requires UE A and is slow to rise with significant effort. Strength: Ankle/Knee: 5/5 Hip: 4/5 throughout Core: poor. Flex: HS: moderate. Sensation: WNL - Balance Scores Functional Gait Assessment Score: 10 % Disability: 66.6700 - Goals Goal 1:: Patient will be I with HEP and progression Goal Time Frame: 4-6 Weeks Goal 2:: Patient will sit to stand without use of UE x 2 Goal Time Frame: 4-6 Weeks Goal 3:: Patient will asc/desc 8 stairs recip with 2 HR Goal Time Frame: 4-6 Weeks Goal 4:: Patient will improve her FGA score by 5 points Goal Time Frame: 4-6 Weeks - Rehabilitation Potential Physical Therapy Diagnosis: Patient presents with hypomobility- she has decreased strength, flexibility and muscular endurance leading abnormal gait, poor balance and decreased ability to perform ADL's. Rehabilitation Potential: Good - Anticipated Interventions Patient/Client Instruction: Educate patient on: Benefits of Fitness Program Therapeutic Exercise to Include: Strength training, Endurance training, Balance training, Coordination, Agility training, Body mechanics, Postural training, Flexibilty training, Gait and locomotor training, Neuromotor development, Dynamic Lumbar Stabilization, Scapular Strength/Stabilization For the Purpose of:: To improve muscle performance and motor function Cryotherapy (ice pack, ice massage): Yes Thermo therapy (hot pack): Yes Thank you for the opportunity to evaluate your patient. For Medicare and Medicare HMO plans, please review the plan of care and approve it. It will need to be FAXED BACK to us at [phone] for Medicare purposes. For Medicare only, by signing this I certify the plan of care. Please let me know if there are questions or concerns regarding this plan of care. Physician Signature: Date:
--- NOTE | 2020-09-05 10:51 | HP.PT.NRP ---
ALEXIS HASKINS was seen in my office for initial evaluation on 06/06/20. The following Plan of Care was established for this patient: Initial Frequency: 3x /Week Initial Duration: 4 Weeks Patient/Client Instruction: Educate patient on: Benefits of Fitness Program Therapeutic Exercise to Include: Strength training, Endurance training, Balance training, Coordination, Agility training, Body mechanics, Postural training, Flexibilty training, Gait and locomotor training, Neuromotor development, Dynamic Lumbar Stabilization, Scapular Strength/Stabilization For the Purpose of:: To improve muscle performance and motor function Cryotherapy (ice pack, ice massage): Yes Thermo therapy (hot pack): Yes This patient was last seen in our office . Pertinent comments regarding their Physical therapy will appear below: Patient has not returned to PT in over 8 weeks- appropriate for discharge and return to MD for further evaluation. At this point I will be discontinuing this patient from physical therapy. I would be happy to see this patient again in the future if found appropriate by the physician. Thank you! Mariela Whitaker DPT
== END 2020-06-18 19:00 | disposition home or self-care (01) ==
LOC: PT 13:00
PROVIDERS: PCP Family Medicine; Referring Provider Family Medicine; Visit Provider Family Medicine
DX: I61.4 Nontraumatic intracerebral hemorrhage in cerebellum (principal)
CPT/HCPCS: 97110; 97161; 97166

== ENCOUNTER → 2020-07-10 | Outpatient (CLI) | payer MEDICARE, MEDICAID, SELFPAY ==
[2020-07-10 18:00] LABS: Absolute Lymphocyte Count 1.27 X10^3/uL (0.83-4.51); Absolute Neutrophil Count 10.2 X10^3/uL (2.0-7.7); Basophil# 0.07 X10^3/uL; Basophil% 0.6 % (0-1); Eosinophils% 0.8 % (0-5); Hematocrit 38.3 % (37-47); Hemoglobin 11.3 g/dL (12.0-15.0); Lymphocyte # 1.27 X10^3/ul (4.0); Lymphocyte % 10.1 % (19-41); Mean Corp Hgb Conc 29.5 g/dL (32-36); Mean Corpuscular Hgb 28.8 pg (27.0-32.0); Mean Corpuscular Volume 97.7 fL (81-99); Monocyte# 0.96 X10^3/uL; Monocyte% 7.6 % (0-10); NRBC Flagged by Analyzer 0 % (0-5); Neutrophil # 10.15 X10^3/uL (2.7-7.7); Neutrophil % 80.3 % (47-70); Platelet Count 328 K/mm3 (150-450); RBC Distribution Width CV 14.3 % (11.6-14.6); RBC Distribution Width SD 51.6 fl (35.1-43.9); Red Blood Count 3.92 M/mm3 (4.2-5.4); White Blood Count 12.6 K/mm3 (4.4-11.0)
[2020-07-10 18:15] LABS: Vitamin D,25 Hydroxy 27.6 ng/mL
[2020-07-10 18:17] LABS: ALB/GLOB Ratio 0.6 RATIO (0.9-2.4); AST(SGOT) 10 U/L (15-37); Alanine Aminotransfer ALT/SGPT 18 U/L (13-56); Albumin, Serum 3.1 g/dL (3.2-5.0); Alkaline Phosphatase 112 U/L (45-117); Anion Gap 6 (5-15); BUN 21 mg/dL (7-18); BUN/Creat Ratio 20.2 RATIO (10-20); Calcium,Total 9.1 mg/dL (8.5-10.1); Chloride 105 mmol/L (98-107); Creatinine, Serum 1.04 mg/dL (0.55-1.02); EST Glomerular Filtration Rate 56 mL/min (>60); Est Glom Filt Rate - Afr Amer 68 mL/min (>60); Globulin 5.2 g/dL (2.2-4.2); Glucose 98 mg/dL (74-106); Phosphorus 3.6 mg/dL (2.5-4.9); Potassium 4.2 mmol/L (3.5-5.1); Protein, Total 8.3 g/dL (6.4-8.2); Sodium Level 141 mmol/L (136-145)
== END | disposition home or self-care (01) ==
PROVIDERS: Family Medicine
DX: E55.9 Vitamin D deficiency, unspecified (principal); I12.9 Hypertensive chronic kidney disease with stage 1 through stage 4 chronic kidney disease, or unspecified chronic kidney disease; N18.30 Chronic kidney disease, stage 3 unspecified
CPT/HCPCS: 36415; 80053; 82306; 83970; 84100; 85025

== ENCOUNTER 2020-07-12 07:42 | Emergency (ER) | payer MEDICARE, MEDICAID, SELFPAY ==
[2020-07-12] VITALS (23 sets, daily range): BP systolic 101–148; BP diastolic 53–102; PULSE 56–83; RESP 15–22; TEMP 35.1–36.8; O2SAT 94–100; BMI 63.3
--- NOTE | 2020-07-12 07:51 | RAD_ITS ---
STUDY: X-RAY CHEST REASON FOR EXAM: Female, 64 years old. Chills, nausea x 2 days TECHNIQUE: Single AP portable view of the chest. COMPARISON: Comparison is made with prior study dated 01/12/2017 and 09/02/2016 FINDINGS: EKG electrodes are seen. There is a 1.2 cm nodule in the right infrahilar region. Smaller nodules are also seen at the right lung base. Correlation with a CT scan recommended. There is no demonstrated pleural abnormality. There is borderline cardiomegaly. Normal mediastinum and teresa. Normal visualized pulmonary arteries. There is atherosclerotic tortuosity of the aortic arch and descending thoracic aorta. There are diffuse degenerative changes of the visualized thoracic spine. Normal visualized ribs, clavicles, and shoulders. There is no demonstrated abnormality of the visualized soft tissue structures of the upper abdomen. RAD/Chest 1 View (Portable) IMPRESSION: 1.2 cm nodule in the right infrahilar region. 3 other smaller nodules are seen at that site as well. Correlation with a CT scan is recommended. Electronically Signed: Kamari Cornejo, at 9:03 EDT , Service support ,
--- NOTE | 2020-07-12 07:51 | EKG12_ITS ---
Test Reason : Blood Pressure : / mmHG Vent. Rate : 054 BPM Atrial Rate : 054 BPM P-R Int : 152 ms QRS Dur : 102 ms QT Int : 508 ms P-R-T Axes : 027 015 075 degrees QTc Int : 481 ms Sinus bradycardia Otherwise normal ECG Confirmed by MICHELLE BAUMAN, GALDINO ([id number]), editor book SOREN LAWSON ([id number]) on 07/25/2020 9:41:09 A M Referred By: SIMON Confirmed By:BRIJESH MARTINEZ MD
--- NOTE | 2020-07-12 07:55 | ED.DCSUM_ITS ---
- ER Visit Summary Date of Service: 07/12/20 Chief Complaint: Chills, nausea, vomiting History of Present Illness: The patient is a [address] Martinez. Patient reports that she has not felt well since yesterday evening. She reports she has been nauseated vomited twice. No blood in her emesis. She has a headache that is rated 10 severity. She does have a history of similar headaches. She has had severe chills. She denies fever. Patient denies any sick contacts. She does wear a mask when she goes out. She denies sore throat or cough. No chest pain or trouble breathing. No abdominal pain or diarrhea. No dysuria or frequency. Patient does report that she has bedbugs and that she has an child welfare consultant coming out. She lives with her granddaughters. Physical Examination: Vitals: Stable. Afebrile. General: Well-nourished and well-developed. Head: Normocephalic atraumatic. Patient does have pediculosis capitis. Neck: Supple, no lymphadenopathy. No JVD. Nontender. Cardiovascular: Regular rate and rhythm. No murmurs. Respiratory: No respiratory distress. Clear to auscultation bilaterally. Abdominal: Soft, nontender, nondistended, normal bowel sounds. No guarding, rebound, or peritoneal signs. Back: Nontender. Extremities: Nontender, 3+ pitting edema lower extremities bilaterally. Skin: Normal color, multiple bedbug bites with excoriation to her legs, chest, and abdomen. There is no erythema or induration to suggest infection. Neurologic: Alert and oriented ?3. Cranial nerves II through XII are intact. Normal strength and sensation. Psych: Depressed. Test Results: CBC shows a white count of 14.9 with 86 segmented neutrophils and 6 lymphocytes. Chem-7 shows a glucose 145, BUN 21, creatinine 1.18. LFTs show total protein of 9.0, globulin 5.6, alk phos 118. Coags are normal. Lactic acid is 1.9. Urinalysis shows leukocytes. Clinical Impression(s) from Imaging Studies Chest X-Ray 07/12/20 07:51 IMPRESSION: 1.2 cm nodule in the right infrahilar region. 3 other smaller nodules are seen at that site as well. Correlation with a CT scan is recommended. Electronically Signed: Kamari Contei, at 9:03 EDT , Service support , Chest CT 07/12/20 09:14 IMPRESSION: Mild cardiomegaly and findings suggestive of mild degree of CHF. No pulmonary nodules are seen. Electronically Signed: Kamari Granderea, at 10:23 EDT , Service support , Brain CT 07/12/20 13:51 IMPRESSION: Findings suggestive of a subarachnoid hemorrhage. Stable meningioma overlying the right parietal region. N.B. : The above information has been verbally conveyed by Kamari Cornejo to Chad Yang MD, on 07/12/2020 15:09:19 (ET). Electronically Signed: Kamari Granderea, at 15:10 EDT , Service support , Emergency Department Course and Treatment: Patient was given Zofran for her nausea. She had permethrin applied to her hair. Patient complained of worsening headache and was given a dose of morphine IV. She reports that she was supposed to have a CT of her brain tomorrow to follow-up on her intracranial hemorrhage that she had in April. This was obtained and shows an acute subarachnoid hemorrhage. Patient was reevaluated. She is not hypertensive. She is alert and oriented. Treatment Plan: Patient was transferred to [facility] with her last intracranial hemorrhage. She asked to go there again. Unfortunately they did not have beds available. She then asked for transfer to [facility]. Disposition: Transferred in serious condition. Impression: 1. Subarachnoid hemorrhage. 2. Leukocytosis. 3. Critical care time 30 minutes. This note was generated with [employer] software. It may contain incorrect words, spelling, and punctuation that were not noted in review of the chart prior to signing ED Disposition - Plan for ED Patient: Referrals: Hieu Meyer MD [Primary Care Provider] -
[2020-07-12] MEDS: Ondansetron 4 MG/2 ML Vial IV ×2 (08:27→14:12)
[2020-07-12 08:30] LABS: Absolute Neutrophil Count 12.9 X10^3/uL (2.0-7.7); Basophil# 0.05 X10^3/uL; Basophil% 0.3 % (0-1); Eosinophil# 0.01 X10^3/uL; Eosinophils% 0.1 % (0-5); Hematocrit 42.2 % (37-47); Hemoglobin 12.5 g/dL (12.0-15.0); Mean Corp Hgb Conc 29.6 g/dL (32-36); Mean Corpuscular Hgb 28.9 pg (27.0-32.0); Mean Corpuscular Volume 97.5 fL (81-99); Mean Platelet Vol. 10.4 fl (6.2-12.0); Monocyte# 0.99 X10^3/uL; Monocyte% 6.6 % (0-10); NRBC Flagged by Analyzer 0 % (0-5); Neutrophil # 12.85 X10^3/uL (2.7-7.7); Neutrophil % 86.3 % (47-70); Platelet Count 286 K/mm3 (150-450); RBC Distribution Width CV 14.2 % (11.6-14.6); RBC Distribution Width SD 51.1 fl (35.1-43.9); Red Blood Count 4.33 M/mm3 (4.2-5.4); White Blood Count 14.9 K/mm3 (4.4-11.0)
[2020-07-12 08:42] LABS: International Normalized Ratio 1.1; Prothrombin Time (Protime)PT. 14.1 SECONDS (11.7-14.9)
[2020-07-12] MEDS: Permethrin 1% 1 APPLIC Bottle TOPICAL (08:42)
[2020-07-12] MEDS: 0.9% Normal Saline 1,000 ML 150 ML IV (08:42)
[2020-07-12 08:43] LABS: Partial Thromboplast Time 33.1 Seconds (24.1-36.2)
[2020-07-12 08:53] LABS: ALB/GLOB Ratio 0.6 RATIO (0.9-2.4); AST(SGOT) 16 U/L (15-37); Alanine Aminotransfer ALT/SGPT 20 U/L (13-56); Albumin, Serum 3.4 g/dL (3.2-5.0); Alkaline Phosphatase 118 U/L (45-117); Anion Gap 3 (5-15); BUN 21 mg/dL (7-18); BUN/Creat Ratio 17.8 RATIO (10-20); Calcium,Total 9.2 mg/dL (8.5-10.1); Chloride 104 mmol/L (98-107); Creatinine, Serum 1.18 mg/dL (0.55-1.02); EST Glomerular Filtration Rate 49 mL/min (>60); Est Glom Filt Rate - Afr Amer 59 mL/min (>60); Estimated Creatinine Clearance 45.61 ml/min; Globulin 5.6 g/dL (2.2-4.2); Glucose 145 mg/dL (74-106); Potassium 3.8 mmol/L (3.5-5.1); Sodium Level 139 mmol/L (136-145)
[2020-07-12 09:01] LABS: Lactic Acid 1.9 mmol/L (0.4-1.9)
--- NOTE | 2020-07-12 09:14 | CT_ITS ---
STUDY: CT CHEST WITH CONTRAST REASON FOR EXAM: Female, 64 years old. NODULES FOUND ON X-RAY RADIATION DOSAGE (If Supplied By Facility): CTDIvol = ( 20.57 ) mGy, DLP = ( 627.36 ) mGycm TECHNIQUE: Transaxial imaging was performed following intravenous administration of IV 100ML ISOVUE 300. Multiplanar coronal and sagittal images were reformatted. Individualized dose optimization techniques were used for this CT. COMPARISON: Comparison is made with prior radiograph done earlier today. FINDINGS: Small benign appearing bilateral axillary lymph nodes. No pulmonary nodules are seen. The questionable nodular density seen on the radiograph most likely represents visualization of prominent pulmonary vasculature. There is a mild degree of increased interstitial markings more prominent at the lung bases suggest some possible mild degree of CHF. There is no demonstrated pleural abnormality. There is mild cardiac enlargement. Mild degree of coronary artery calcification. Normal mediastinum. Calcified right hilar and infrahilar lymph nodes. Normal enhanced pulmonary arteries. Normal aorta arch and descending thoracic aorta. There are multi-level degenerative changes of the thoracic spine. There is no demonstrated abnormality of the visualized upper abdomen. CT/Chest WITH Contrast IMPRESSION: Mild cardiomegaly and findings suggestive of mild degree of CHF. No pulmonary nodules are seen. Electronically Signed: Kamari Cornejo, at 10:23 EDT , Service support ,
[2020-07-12 12:43] LABS: Mucous, Urine 0 SEEN /hpf (<or=2+); Red Blood Cells-Urine 0 SEEN /hpf (0-5)
[2020-07-12 12:56] LABS: Color, Urine Yellow (Yellow); Glucose, Dipstick Normal (Normal); Ketone-Dipstick Negative (Negative); Leukocyte Esterase-Dipstick 25 /ul (Negative); Nitrite-Dipstick Negative (Negative); Occult Blood-Urine 10 /ul (Negative); Protein-Dipstick Negative (Negative); Urine Bilirubin Dipstick Negative (Negative); Urine Clarity Sl. Cloudy (Clear); Urine Urobilinogen Normal (Normal)
[2020-07-12 13:12] LABS: Bacteria RARE /hpf (None Seen); Squamous Epithelial Cells - UA 0-5 SEEN /hpf (5-10); White Blood Cells 0-5 SEEN /hpf (0-5)
--- NOTE | 2020-07-12 13:51 | CT_ITS ---
STUDY: CT BRAIN WITHOUT CONTRAST REASON FOR EXAM: Female, 64 years old. HEADACHE, CONTRAST IN BRAIN FROM PREV. SCAN RADIATION DOSAGE (If Supplied By Facility): CTDIvol = ( 60.81 ) mGy, DLP = ( 998.67 ) mGycm TECHNIQUE: Transaxial CT imaging of the brain was performed without administration of intravenous contrast material. Individualized dose optimization techniques were used for this CT. COMPARISON: Comparison is made with prior study dated 05/24/2020. FINDINGS: Contrast is seen within the brain parenchyma secondary to recent IV contrast administration. Normal soft tissue structures. Normal calvarium. There is asymmetry of the ventricles consistent with an anatomic variant. Normal white matter tracts of the cerebral hemispheres. 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 Stable 2.3 cm x 1.5 cm calcific extra-axial density in the right parietal region suggestive of meningioma. Normal brainstem. The previously seen left cerebellar hemorrhage is not seen at this time. I suspect subarachnoid hemorrhage. There are no findings of an acute ischemic infarction. Normal visualized paranasal sinuses. CT/Brain/Head without Contrast IMPRESSION: Findings suggestive of a subarachnoid hemorrhage. Stable meningioma overlying the right parietal region. N.B. : The above information has been verbally conveyed by Kamari Cornejo to Chad Yang MD, on 07/12/2020 15:09:19 (ET). Electronically Signed: Kamari Cornejo, at 15:10 EDT , Service support ,
[2020-07-12] MEDS: Morphine 4 MG/ML Syringe IV (14:00)
== END 2020-07-12 19:12 | disposition short-term general hospital (02) ==
PROVIDERS: Emergency Provider Emergency Medicine; PCP Family Medicine
DX: I60.9 Nontraumatic subarachnoid hemorrhage, unspecified (principal); D72.829 Elevated white blood cell count, unspecified; I10 Essential (primary) hypertension; J45.909 Unspecified asthma, uncomplicated; Z86.73 Personal history of transient ischemic attack (TIA), and cerebral infarction without residual deficits; Z79.899 Other long term (current) drug therapy
CPT/HCPCS: 70450; 71045; 71260; 80053; 81001; 83605; 85025; 85610; 85730; 87040; 87086; 87088; 87635; 93005; 94760; 96361; 96374; 96375; 96376; 99283; 99285; J7030; Q9967; A4216; J2405; U0003